=== PATIENT | female | born 1940 | race Caucasian/White ===

== ENCOUNTER 2021-09-01 02:23 | Emergency (ER) | payer MEDICARE, SELFPAY ==
[2021-09-01] VITALS (8 sets, daily range): BP systolic 137–172; BP diastolic 54–74; PULSE 72–116; RESP 13–22; TEMP 36.9–37.3; O2SAT 96–98; BMI 28.5
--- NOTE | 2021-09-01 | ECG_ITS ---
Test Reason : palpitations Blood Pressure : / mmHG Vent. Rate : 103 BPM Atrial Rate : 103 BPM P-R Int : 134 ms QRS Dur : 118 ms QT Int : 346 ms P-R-T Axes : 056 -26 017 degrees QTc Int : 453 ms Sinus tachycardia Possible Left atrial enlargement Right bundle branch block Abnormal ECG No previous ECGs available Referred By: Tab Arredondo Electronically Signed By:ROSHAN FERREIRA MD
[2021-09-01 03:27] LABS: Hemoglobin 11.6 g/dl (12.0-16.0); PLT ABN DIST 1; Red Cell Distribution Width 15.9 % (11.0-16.0)
[2021-09-01 03:29] LABS: Hematocrit 34.6 % (37.0-47.0); Mean Corpuscular HGB Conc 33.5 g/dl (31.0-35.0); Mean Corpuscular Hemoglobin 30.9 pg (27.0-33.0); Mean Platelet Volume 14.3 fL (9.4-12.3); NRBC Pct Auto 0.3 /100WBC (0.0-0.2); PLT CLUMP 1; Red Blood Count 3.76 X10*6/uL (4.20-5.50); WBC ABN SCTR FOR CBC 1
[2021-09-01 03:39] LABS: Alanine Aminotransferase 18 U/L (0-31); Albumin Level 4.3 g/dL (3.5-5.0); Alkaline Phosphatase 47 U/L (39-117); Anion Gap 14 (12-20); Aspartate Amino Transferase 21 U/L (5-31); Bilirubin Total 0.8 mg/dL (0.0-1.0); Blood Urea Nitrogen 19 mg/dL (9-16); Calcium 9.7 mg/dL (8.4-10.2); Carbon Dioxide 24 mmol/L (22-29); Chloride 101 mmol/L (96-108); Estimated Glomerular Filt Rate 58; Glucose Random 150 mg/dL (60-115); Sodium 135 mmol/L (135-145); Total Protein 7.2 g/dL (6.5-8.0)
[2021-09-01 03:46] LABS: Platelet Count 161 X10*3/uL (160-400); Troponin-I High Sensitivity 14.7 ng/L (<3.5-17.0); White Blood Count 6.4 X10*3/uL (4.8-10.8)
--- NOTE | 2021-09-01 07:06 | PC.NURSE ---
strong steady gait to triage. denies palpitations. states sx have improved. strong reg radial pulse palpable. has had a fib but was taken off eloquis after long period w/o a fib. denies CP throughout night.
[2021-09-01 07:48] LABS: Troponin-I High Sensitivity 24.1 ng/L (<3.5-17.0)
--- NOTE | 2021-09-01 07:58 | ED.GENADULT ---
HPI - General Adult General Chief complaint: General Medical Stated complaint: elevated heart rate Time Seen by Provider: 09/01/21 07:58 Source: patient Mode of arrival: ambulatory Limitations: no limitations History of Present Illness HPI narrative: 81 years old female came in for evaluation of palpitation. 81-year-old female just received her 2nd booster Pfizer COVID vaccination yesterday, patient was feeling palpitation with rapid heartbeat, denies any chest pain or dizziness or lightheadedness. No fever, no chills. Related Data Home Medications Medication Instructions Recorded Confirmed diltiazem HCl 180 mg capsule,24 180 mg PO DAILY 03/06/21 hr,extended release hydrochlorothiazide 25 mg tablet 25 mg PO DAILY 03/06/21 Previous Rx's Medication Instructions Recorded doxycycline hyclate 100 mg tablet 100 mg PO BID #20 tab 03/06/21 Allergies Allergy/AdvReac Type Severity Reaction Status Date / Time amoxicillin Allergy Rash Verified 03/06/21 13:33 Review of Systems Review of Systems: All other systems are reviewed and are negative Constitutional: Reports as per HPI and Reports no additional constitutional complaints Eyes: Reports as per HPI and Reports no additional eye complaints Reports system reviewed and no additional complaints, except as documented Cardiovascular: Reports as per HPI and Reports no additional cardiovascular complaints Respiratory: Reports as per HPI and Reports no additional respiratory complaints Gastrointestinal: Reports as per HPI and Reports no additional gastrointestinal complaints Genitourinary: Reports no additional female genitourinary complaints Musculoskeletal: Reports no additional musculoskeletal complaints Skin/Breast: Reports system reviewed and no additional complaints, except as docu Psychiatric: Reports no additional psychiatric complaints Endocrine: Reports no additional endocrine complaints Hematologic/Lymphatic: Reports no additional hematologic/lymphatic complaints Allergic/Immunologic: Reports no additional allergic/immunologic complaints Reports system reviewed and no additional complaints, except as documented and Reports Abnormal speech present [facility] Social History Social History Alcohol intake: current Alcohol intake frequency: holidays/special occasions only Patient Tobacco Use Status: Never used Tobacco Use of substances other than those prescribed or required for medical reasons: No Advance Directives: No Advance Directives Information Provided: Yes Physical Exam ED Vital Signs: Vital Signs - 24 hr 09/01/21 02:43 09/01/21 04:09 09/01/21 07:05 Temperature 98.5 F Pulse Rate 116 H 82 89 Respiratory Rate 18 16 18 Blood Pressure 172/74 H 148/61 H 151/65 H Pulse Oximetry 98 97 97 09/01/21 07:30 09/01/21 08:24 09/01/21 09:08 Temperature 99 F 99.1 F Pulse Rate 93 80 76 Respiratory Rate 20 18 22 H Blood Pressure 150/69 H 144/54 H 140/74 H Pulse Oximetry 97 97 96 09/01/21 10:35 Temperature 99.0 F Pulse Rate 78 Respiratory Rate 19 Blood Pressure 144/56 H Pulse Oximetry 98 BMI result Body Mass Index 28.5 Vital signs have been reviewed as appeared to be correct. Blood pressure normal. Heart rate normal. Respiration rate normal. Temperature normal. Oxygen saturation normal. Appearance: Alert. Oriented X3. No acute distress. Head: Normal external exam. Normocephalic. Atraumatic. No Barrera signs noted. No raccoon eyes noted Eyes: PERRLA. EOMI. Conjunctiva and sclera normal. Eyelids normal. ENT: TM's Normal. Pharynx normal. Uvula midline. Moist mucous membranes. No trismus noted. No drooling noted. No muffled voice noted. Neck: Normal inspection. Neck supple. FROM. No adenopathy. Thyroid Normal. No meningeal signs. No neck mass noted. CVS: Normal heart rate and rhythm. Heart sound normal. No murmurs noted. Pulses normal throughout. Respiratory: No respiratory distress. Painless inspiration. Breath sounds normal. No wheezes/rales/rhonchi noted. Chest nontender. No accessory muscle usage noted or decreased air movement noted. Abdomen: Soft and nontender. Bowel sounds normal in all 4 quadrants. No distention noted. No organomegaly noted. No visible injury noted. Back: No CVA tenderness. Full range of motion noted. Skin: Skin warm and dry. Normal skin color. Normal skin turgor. No rashes/lesions/lacerations noted. Extremities: No lower extremity edema. Extremities exhibit normal range of motion. Extremities nontender. Neuro: Oriented X 3. Cranial nerve exam: II-XII are grossly intact No motor deficit. No sensory deficit. Reflexes normal. Course Course Course Narrative: Assessment and plan. 81-year-old female came in for evaluation of palpitation after having the 2nd booster COVID vaccination, EKG is sinus at 84, labs and electrolytes are unremarkable, slight elevation of troponin with no delta change, patient now is asymptomatic heart rate been in the 80s, will discharge to follow-up with PCP. Medical Decision Making Lab Data Lab results reviewed: Yes I reviewed the patient's lab results. Result diagrams: 09/01/21 02:40 09/01/21 02:40 Labs: Lab Results 09/01/21 09/01/21 09/01/21 Range/Units 02:40 02:40 02:40 WBC 6.4 (4.8-10.8) X10*3/uL RBC 3.76 L (4.20-5.50) X10*6/uL Hgb 11.6 L (12.0-16.0) g/dl Hct 34.6 L (37.0-47.0) % MCV 92.0 (80.0-98.0) fL MCH 30.9 (27.0-33.0) pg MCHC 33.5 (31.0-35.0) g/dl RDW 15.9 (11.0-16.0) % Plt Count 161 (160-400) X10*3/uL MPV 14.3 H (9.4-12.3) fL Absolute Nucleated RBC 0.020 H (0.0-0.012) X10*3/uL Nucleated RBC % (auto) 0.3 H (0.0-0.2) /100WBC Sodium 135 (135-145) mmol/L Potassium 4.0 (3.3-5.1) mmol/L Chloride 101 (96-108) mmol/L Carbon Dioxide 24 (22-29) mmol/L Anion Gap 14 (12-20) BUN 19 H (9-16) mg/dL Creatinine 0.92 (0.5-1.4) mg/dL Estim Creat Clear Calc 40.0 Estimated GFR 58 Random Glucose 150 H (60-115) mg/dL Calcium 9.7 (8.4-10.2) mg/dL Total Bilirubin 0.8 (0.0-1.0) mg/dL AST 21 (5-31) U/L ALT 18 (0-31) U/L Alkaline Phosphatase 47 (39-117) U/L Troponin I High Sens 14.7 (<3.5-17.0) ng/L Total Protein 7.2 (6.5-8.0) g/dL Albumin 4.3 (3.5-5.0) g/dL 09/01/21 09/01/21 Range/Units 07:19 09:56 WBC (4.8-10.8) X10*3/uL RBC (4.20-5.50) X10*6/uL Hgb (12.0-16.0) g/dl Hct (37.0-47.0) % MCV (80.0-98.0) fL MCH (27.0-33.0) pg MCHC (31.0-35.0) g/dl RDW (11.0-16.0) % Plt Count (160-400) X10*3/uL MPV (9.4-12.3) fL Absolute Nucleated RBC (0.0-0.012) X10*3/uL Nucleated RBC % (auto) (0.0-0.2) /100WBC Sodium (135-145) mmol/L Potassium (3.3-5.1) mmol/L Chloride (96-108) mmol/L Carbon Dioxide (22-29) mmol/L Anion Gap (12-20) BUN (9-16) mg/dL Creatinine (0.5-1.4) mg/dL Estim Creat Clear Calc Estimated GFR Random Glucose (60-115) mg/dL Calcium (8.4-10.2) mg/dL Total Bilirubin (0.0-1.0) mg/dL AST (5-31) U/L ALT (0-31) U/L Alkaline Phosphatase (39-117) U/L Troponin I High Sens 24.1 H D 23.4 H (<3.5-17.0) ng/L Total Protein (6.5-8.0) g/dL Albumin (3.5-5.0) g/dL ECG Data Attestation: I personally reviewed and interpreted this ECG as follows: Interpretation: Normal sinus rhythm at 84 beats per minutes, right bundle branch block. Discharge Plan Discharge Clinical Impression: Palpitation Patient Disposition: Home, Self-Care Instructions: Heart Palpitations (ED) Prescriptions: No Action doxycycline hyclate 100 mg tablet 100 mg PO BID Qty: 20 0RF Referrals: Carleen Samson MD [Primary Care Provider] - 2 days
[2021-09-01 10:23] LABS: Troponin-I High Sensitivity 23.4 ng/L (<3.5-17.0)
== END 2021-09-01 11:39 | disposition home or self-care (01) ==
PROVIDERS: Emergency Provider Emergency Medicine; PCP Internal Medicine
DX: R00.2 Palpitations (principal)
CPT/HCPCS: 36415; 80053; 84484; 85027; 93005; 99283; 99284

== ENCOUNTER 2021-11-19 12:41 | Outpatient (REF) | payer MEDICARE, SELFPAY ==
--- NOTE | ~2021-11-19 | MM_ITS ---
EXAMINATION: BONE DENSITOMETRY CLINICAL INDICATION: Menopause. COMPARISON: This is the patient's baseline examination. TECHNIQUE: Using a [employer] DXA System (software version: 13.1) manufactured by [employer], dual-energy x-ray absorptiometry was performed of the lumbar spine and left hip. The images are of good technical quality. Summary results are attached. FINDINGS: AP SPINE L1-L2 (excluding L3 and L4): The data of L1-L4 has been changed to exclude the L3 and L4 vertebral bodies, because degenerative sclerosis at these levels may cause overestimation of lumbar spine density. BMD 1.260 g/cm2, Z-score 2.7, T-score 0.8, normal. LEFT FEMUR, NECK: BMD 0.768 g/cm2, Z-score 0.3, T-score -1.9, osteopenia. LEFT FEMUR, TOTAL: BMD 0.888 g/cm2, Z-score 1.2, T-score -0.9, normal. IDENTIFIED RISK FACTORS: Thiazide. Menopause. HISTORY OF FRACTURE: None listed. MEDICATIONS: Calcium supplement and/or multivitamin. Vitamin D. MM/XR DEXA axial skeleton IMPRESSION: 1. DIAGNOSIS: Osteopenia based on the lowest T-score value of -1.9 in the femoral neck applying World Health Organization criteria. 2. 10-YEAR FRACTURE RISK PREDICTION, FRAX: Major osteoporotic fracture (clinical spine, forearm, hip or shoulder) 15.6%. Hip fracture 4.7%. 3. Treatment Recommendations: NOF guidelines recommend consideration for treatment in postmenopausal women and men age 50 and older presenting with the following: -A hip or vertebral (clinical or morphometric) fracture. -T-score less than or equal to -2.5 at the femoral neck or spine after appropriate evaluation to exclude secondary causes. -Low bone mass at the hip or spine and a 10-year fracture probability by FRAX of greater than or equal to 3% for hip fracture or greater than or equal to 20% for major osteoporotic fracture based on the [place] adapted WHO algorithm. 4. Other Recommendations: All treatment decisions require clinical judgment and consideration of individual patient factors, including patient preferences, comorbidities, previous drug use, risk factors not captured in the FRAX model (e.g. frailty, falls, vitamin D deficiency, increased bone turnover, interval significant decline in bone density) and possible under or overestimation of fracture risk by FRAX. Additional medical evaluation for secondary cause of low bone mineral density may be appropriate. FUTURE SCAN RECOMMENDATION: People with diagnosed cases of osteoporosis or at high risk for fracture should have regular bone mineral density tests. For patients eligible for Medicare, routine testing is allowed once every 2 years. The testing frequency can be increased to one year for patients who have rapidly progressing disease, those who are receiving or discontinuing medical therapy to restore bone mass, or have additional risk factors.
== END 2021-11-19 12:42 | disposition home or self-care (01) ==
LOC: HO.MAMMO 12:41
PROVIDERS: Visit Provider Internal Medicine
DX: Z13.820 Encounter for screening for osteoporosis (principal); M81.0 Age-related osteoporosis without current pathological fracture; Z78.0 Asymptomatic menopausal state
CPT/HCPCS: 77080

== ENCOUNTER 2022-01-30 11:46 | Emergency (ER) | payer MEDICARE, SELFPAY ==
--- NOTE | ~2022-01-30 | CT_ITS ---
EXAMINATION: CT ABDOMEN AND PELVIS WITH CONTRAST CLINICAL INFORMATION: Abdominal pain and bloating COMPARISON: Abdominal ultrasound from earlier the same day TECHNIQUE: Multidetector volumetric images were obtained from the superior aspect of the liver through the pubic symphysis following administration 85 mL of Omnipaque 350 intravenous contrast. Sagittal and coronal reformatted images were obtained on the technologist's workstation. Oral contrast: Yes This CT examination was performed using dose optimization techniques as appropriate, variously including the following: *Automated exposure control *Adjustment of mA and/or kV according to patient size (this includes techniques or standardized protocols for targeted exams where dose is matched to indication/reason for exam; i.e. extremities or head) *Use of iterative reconstruction technique DLP: 414 mGy-cm FINDINGS: LUNG BASES: The visualized lung bases are unremarkable. LIVER, GALLBLADDER, AND BILIARY TREE: The liver is normal in size, shape, and attenuation. There is a small low-attenuation lesion in the left lobe of the liver measuring 4 mm that is difficult to characterize but may represent a small cyst.. No other focal liver lesion. No biliary duct dilatation. The gallbladder is unremarkable with no evidence of radiopaque gallstones, gallbladder wall thickening, or obvious pericholecystic inflammatory changes. PANCREAS: There is fatty infiltration of the pancreas. SPLEEN: Unremarkable. ADRENAL GLANDS: Unremarkable. KIDNEYS AND URETERS: The kidneys are normal in size, shape, and attenuation. No hydronephrosis, hydroureter, or calculi seen. No perinephric stranding. BLADDER: Unremarkable. GASTROINTESTINAL TRACT: There is diverticulosis of the colon. No evidence of diverticulitis is seen. Small and large bowel is otherwise unremarkable. The appendix is not seen. There are no inflammatory changes in the right lower quadrant. The stomach is not optimally distended. ABDOMINAL WALL: No significant hernia is appreciated. LYMPH NODES: Normal. VASCULAR: Unremarkable. PELVIC VISCERA: There is low-attenuation in the central uterus questionable for endometrial fluid or thickening. This measures 6 mm which is prominent for a postmenopausal patient. OSSEOUS STRUCTURES: There are degenerative changes of the spine. CT/CT abdomen pelvis w IV con IMPRESSION: Diverticulosis of the colon. No evidence of diverticulitis, colitis or obstruction. Probable tiny cyst in the liver. Fatty infiltration of the pancreas. Fleischner guidelines were followed.
--- NOTE | ~2022-01-30 | US_ITS ---
EXAMINATION: US ABDOMEN LIMITED CLINICAL INFORMATION: Right upper quadrant and epigastric pain. COMPARISON: None TECHNIQUE: Real-time imaging of the right upper quadrant abdominal viscera. FINDINGS: PANCREAS: Not well visualized. LIVER: Normal. The liver is normal in size. The liver contour is normal. Parenchymal echogenicity is normal. No focal hepatic lesion. There is no intrahepatic biliary duct dilatation seen. GALLBLADDER: The gallbladder is normal in size. There is ring down artifact suggestive of adenomyomatosis of the gallbladder wall. No gallstones are seen. The gallbladder wall does not appear thickened. There is no pericholecystic fluid. COMMON BILE DUCT: Normal in caliber measuring 0.5 cm in diameter. RIGHT KIDNEY: Normal. No hydronephrosis. No renal calculi or focal parenchymal lesions. The kidney measures 8.4 cm in maximum dimension. FREE FLUID: None. 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 No gallstone seen. Nonvisualization of the pancreas.
[2022-01-30 11:54] VITALS: BP 168/67; PULSE 68; RESP 18; TEMP 35.8; O2SAT 98; BMI 27.5
--- NOTE | 2022-01-30 11:57 | ECG_ITS ---
Test Reason : ABDOMINAL PAIN Blood Pressure : / mmHG Vent. Rate : 066 BPM Atrial Rate : 066 BPM P-R Int : 134 ms QRS Dur : 124 ms QT Int : 416 ms P-R-T Axes : 043 -35 000 degrees QTc Int : 436 ms Normal sinus rhythm Possible Left atrial enlargement Left axis deviation Right bundle branch block Abnormal ECG When compared with ECG of 01-SEP-2021 08:12, No significant change was found Referred By: Generic ED Physician Electronically Signed By:JESSICA CISSE
[2022-01-30 12:14] LABS: Hematocrit 33.9 % (37.0-47.0); Hemoglobin 11.6 g/dl (12.0-16.0); Mean Corpuscular HGB Conc 34.2 g/dl (31.0-35.0); Mean Corpuscular Hemoglobin 30.9 pg (27.0-33.0); Mean Corpuscular Volume 90.2 fL (80.0-98.0); Mean Platelet Volume 13.8 fL (9.4-12.3); NRBC Pct Auto 0.4 /100WBC (0.0-0.2); Platelet Count 148 X10*3/uL (160-400); Red Blood Count 3.76 X10*6/uL (4.20-5.50); Red Cell Distribution Width 15.6 % (11.0-16.0); WBC ABN SCTR FOR CBC 1
[2022-01-30 12:28] LABS: Troponin-I High Sensitivity 11.3 ng/L (<3.5-17.0)
[2022-01-30 12:31] LABS: Alanine Aminotransferase 19 U/L (0-31); Albumin Level 4.3 g/dL (3.5-5.0); Alkaline Phosphatase 49 U/L (39-117); Anion Gap 14 (12-20); Aspartate Amino Transferase 21 U/L (5-31); Bilirubin Direct 0.3 mg/dL (0.0-0.5); Bilirubin Total 0.8 mg/dL (0.0-1.0); Blood Urea Nitrogen 15 mg/dL (9-16); Calcium 9.4 mg/dL (8.4-10.2); Carbon Dioxide 27 mmol/L (22-29); Chloride 97 mmol/L (96-108); Creatinine Clr Calc Pharmacy 42.6; Estimated Glomerular Filt Rate > 60; Glucose Random 124 mg/dL (60-115); Lipase 21 U/L (8-78); Sodium 134 mmol/L (135-145); Total Protein 7.1 g/dL (6.5-8.0)
[2022-01-30 12:32] LABS: Atypical Lymphs Percent Manual 2 % (0-6); Band Neutrophils Percent 1 % (3-5); Lymphocytes Percent Manual 40 % (20-40); Monocytes Percent Manual 7 % (2-11); Neutrophils Percent Manual 50 % (45-73)
[2022-01-30 12:35] LABS: Large Platelet PRESENT; Macrocytosis 1+ (5-14) /OIF; Microcytosis 1+ (5-14) /OIF; Platelet Estimate NORMAL (NORMAL); Platelet Morphology Comment NOTED; Polychromasia 1+ (0-2) /OIF; RBC Morphology NOTED; Schistocytes 1+ (0-2) /OIF
[2022-01-30 12:37] LABS: Atypical Lymph Absolute Manual 0.1 x10*3/uL; Lymphocytes Absolute Manual 1.8 X10*3/uL (1.2-4.9); Monocytes Absolute Manual 0.3 X10*3/uL (0.1-1.2); Neutrophils Absolute Manual 2.3 X10*3/uL (2.0-8.3); White Blood Count 4.6 X10*3/uL (4.8-10.8)
--- NOTE | 2022-01-30 13:31 | ED_ITS ---
HPI - Abdominal Pain General Chief Complaint: Abdominal Pain Stated Complaint: Upper Stomach Pain Time Seen by Provider: 01/30/22 13:29 Source: patient Mode of arrival: ambulatory Limitations: no limitations History of Present Illness HPI narrative: 81 yo female with hx of HTN no prior abdominal surgeries presents with 1 week of intermittent abdominal bloating. Feels like she has to belch. Her pain wraps around her abdomen into the back. Last night the gas felt like it was going up onto the sides of her chest. MD elicited complaint: abdominal pain Pertinent past history: none Onset (ago): week(s) (1) Pain Consistency: intermittent Location: epigastric Severity: moderate Quality: fullness Radiation: back and chest Migration to: no migration Exacerbating factors: eating Relieving factors: nothing Associated symptoms: other (increased gas) Related Data Home Medications Medication Instructions Recorded Confirmed diltiazem HCl 180 mg capsule,24 180 mg PO DAILY 03/06/21 hr,extended release hydrochlorothiazide 25 mg tablet 25 mg PO DAILY 03/06/21 Previous Rx's Medication Instructions Recorded doxycycline hyclate 100 mg tablet 100 mg PO BID #20 tabs 03/06/21 Allergies Allergy/AdvReac Type Severity Reaction Status Date / Time amoxicillin Allergy Rash Verified 03/06/21 13:33 Review of Systems Review of Systems Constitutional : No Weight loss, No Fever, No Chills ENT/Mouth : No sore throat, No Rhinorrhea Eyes: No Swelling, No Redness Cardiovascular : No Chest Pain, No SOB, NoEdema Respiratory : No Cough, No Sputum, No Wheezing Gastrointestinal : no Nausea, no Vomiting, no Diarrhea, positive abdominal Pain, No Hematochezia, No Melena Genitourinary : No Dysuria, No Urinary Frequency, No Hematuria, No Urgency Musculoskeletal : No joint pain, No Myalgias, No Joint Swelling Skin : No Skin Lesions, No rash Neuro : No Weakness, No Numbness, No Dizziness, No Headache Psych : No Anxiety/Panic, No Depression Heme/Lymph: No Bruising, No Lymphadenopathy Endocrine : No Polyuria, No Polydipsia All other systems reviewed and are negative. [facility] Past Medical History Attestation statement: The following information was validated with the patient. Medical History HTN (hypertension) Social History Social History (Reviewed 09/03/22 @ 13:50 by ESCOBAR Razo Alcohol intake: current Alcohol intake frequency: 0-2 drinks per day Alcohol type: beer, wine and hard liquor Patient Tobacco Use Status: Never used Tobacco Use of substances other than those prescribed or required for medical reasons: No Advance Directives: Yes Advance Directives Information Provided: Yes Advance Directives on File: No Physical Exam ED Vital Signs: Vital Signs - 24 hr 01/30/22 11:54 01/30/22 14:53 Temperature 96.4 F L 98 F Pulse Rate 68 67 Respiratory Rate 18 18 Blood Pressure 168/67 H 151/62 H Pulse Oximetry 98 98 Oxygen Delivery Method Room Air Room Air BMI result Body Mass Index 27.5 Appearance: Alert. Oriented X3. No acute distress. Eyes: Pupils equal, round and reactive to light. ENT: Pharynx normal. Neck: Normal inspection. Neck supple. CVS: Normal heart rate and rhythm. Pulses normal. Respiratory: No respiratory distress. Breath sounds normal. Abdomen: Soft and mild RUQ pain neg melendez's Skin: Skin warm and dry. Normal skin color. Normal skin turgor. Extremities: No lower extremity edema. No calf ttp Neuro: Oriented X 3. No motor deficit. No sensory deficit. Course Course Course Narrative: negative US, given symptoms recent cologuard test due for colonoscopy 03/04 at this time will obtain CT scan for mass signed out to Sarah LORA pending CT scan MDM - Abdominal Pain MDM Narrative Medical decision making narrative: 81 yo female with hx of HTN here with 1 week of intermittent upper abdominal pain with associated gas and bloating - at this time will need basic labs, EKG, troponin though seems atypical for ACS, US to evaluate GB. If this is negative will obtain CT scan for further evaluation. Dispo per results and findings. Lab Data Result diagrams: 01/30/22 12:00 01/30/22 12:00 Labs: Lab Results 01/30/22 01/30/22 01/30/22 Range/Units 12:00 12:00 12:00 WBC 4.6 L (4.8-10.8) X10*3/uL RBC 3.76 L (4.20-5.50) X10*6/uL Hgb 11.6 L (12.0-16.0) g/dl Hct 33.9 L (37.0-47.0) % MCV 90.2 (80.0-98.0) fL MCH 30.9 (27.0-33.0) pg MCHC 34.2 (31.0-35.0) g/dl RDW 15.6 (11.0-16.0) % Plt Count 148 L (160-400) X10*3/uL MPV 13.8 H (9.4-12.3) fL Immature Gran % (Auto) Cancelled Neut % (Auto) Cancelled Lymph % (Auto) Cancelled Mason % (Auto) Cancelled Eos % (Auto) Cancelled Baso % (Auto) Cancelled Lymph # (Auto) Cancelled Mason # (Auto) Cancelled Eos # (Auto) Cancelled Baso # (Auto) Cancelled Abs Immat Gran (auto) Cancelled Absolute Neuts (auto) Cancelled Absolute Nucleated RBC 0.020 H (0.0-0.012) X10*3/uL Nucleated RBC % (auto) 0.4 H (0.0-0.2) /100WBC Neutrophils % (Manual) 50 (45-73) % Band Neutrophils % 1 L (3-5) % Lymphocytes % (Manual) 40 (20-40) % Atypical Lymphs % (Man) 2 (0-6) % Monocytes % (Manual) 7 (2-11) % Abs Neuts (Manual) 2.3 (2.0-8.3) X10*3/uL Lymphocytes # (Manual) 1.8 (1.2-4.9) X10*3/uL Atyp Lymphs # (Manual) 0.1 x10*3/uL Monocytes # (Manual) 0.3 (0.1-1.2) X10*3/uL Platelet Estimate NORMAL (NORMAL) Large Platelets PRESENT Plt Morphology Comment NOTED RBC Morphology NOTED Polychromasia 1+ (0-2) /OIF Microcytosis 1+ (5-14) /OIF Macrocytosis 1+ (5-14) /OIF Schistocytes 1+ (0-2) /OIF Sodium 134 L (135-145) mmol/L Potassium 4.0 (3.3-5.1) mmol/L Chloride 97 (96-108) mmol/L Carbon Dioxide 27 (22-29) mmol/L Anion Gap 14 (12-20) BUN 15 (9-16) mg/dL Creatinine 0.85 (0.5-1.4) mg/dL Estim Creat Clear Calc 42.6 Estimated GFR > 60 Random Glucose 124 H (60-115) mg/dL Calcium 9.4 (8.4-10.2) mg/dL Total Bilirubin 0.8 (0.0-1.0) mg/dL Direct Bilirubin 0.3 (0.0-0.5) mg/dL AST 21 (5-31) U/L ALT 19 (0-31) U/L Alkaline Phosphatase 49 (39-117) U/L Troponin I High Sens 11.3 D (<3.5-17.0) ng/L Total Protein 7.1 (6.5-8.0) g/dL Albumin 4.3 (3.5-5.0) g/dL Lipase 21 (8-78) U/L COVID-19 (ISAAC) (Negative) COVID-19 Clin Com 01/30/22 Range/Units 14:49 WBC (4.8-10.8) X10*3/uL RBC (4.20-5.50) X10*6/uL Hgb (12.0-16.0) g/dl Hct (37.0-47.0) % MCV (80.0-98.0) fL MCH (27.0-33.0) pg MCHC (31.0-35.0) g/dl RDW (11.0-16.0) % Plt Count (160-400) X10*3/uL MPV (9.4-12.3) fL Immature Gran % (Auto) Neut % (Auto) Lymph % (Auto) Mason % (Auto) Eos % (Auto) Baso % (Auto) Lymph # (Auto) Mason # (Auto) Eos # (Auto) Baso # (Auto) Abs Immat Gran (auto) Absolute Neuts (auto) Absolute Nucleated RBC (0.0-0.012) X10*3/uL Nucleated RBC % (auto) (0.0-0.2) /100WBC Neutrophils % (Manual) (45-73) % Band Neutrophils % (3-5) % Lymphocytes % (Manual) (20-40) % Atypical Lymphs % (Man) (0-6) % Monocytes % (Manual) (2-11) % Abs Neuts (Manual) (2.0-8.3) X10*3/uL Lymphocytes # (Manual) (1.2-4.9) X10*3/uL Atyp Lymphs # (Manual) x10*3/uL Monocytes # (Manual) (0.1-1.2) X10*3/uL Platelet Estimate (NORMAL) Large Platelets Plt Morphology Comment RBC Morphology Polychromasia /OIF Microcytosis /OIF Macrocytosis /OIF Schistocytes /OIF Sodium (135-145) mmol/L Potassium (3.3-5.1) mmol/L Chloride (96-108) mmol/L Carbon Dioxide (22-29) mmol/L Anion Gap (12-20) BUN (9-16) mg/dL Creatinine (0.5-1.4) mg/dL Estim Creat Clear Calc Estimated GFR Random Glucose (60-115) mg/dL Calcium (8.4-10.2) mg/dL Total Bilirubin (0.0-1.0) mg/dL Direct Bilirubin (0.0-0.5) mg/dL AST (5-31) U/L ALT (0-31) U/L Alkaline Phosphatase (39-117) U/L Troponin I High Sens (<3.5-17.0) ng/L Total Protein (6.5-8.0) g/dL Albumin (3.5-5.0) g/dL Lipase (8-78) U/L COVID-19 (ISAAC) Negative (Negative) COVID-19 Clin Com See Note ECG Data Attestation: I personally reviewed and interpreted this ECG as follows: ECG interpretation date: 01/30/22 ECG interpretation time: 13:36 Interpretation: Rate: 66 Rhythm: NSR [place]: left Normal P waves. Normal DYANA. RBBB ST T wave : nonspecific no ED qTC: normal prior studies: unchanged frmo priors The study has been interpreted contemporaneously by me. . Discharge Plan Discharge Clinical Impression: Abdominal pain Patient Disposition: Still a Patient Prescriptions: No Action doxycycline hyclate 100 mg tablet 100 mg PO BID Qty: 20 0RF
[2022-01-30 14:53] VITALS: BP 151/62; PULSE 67; RESP 18; TEMP 36.6; O2SAT 98
[2022-01-30 15:07] LABS: COVID-19 Test Negative (Negative)
[2022-01-30] MEDS: iohexoL 350 MG/ML 100 ML INFUS..BTL IV (16:09)
[2022-01-30 19:34] LABS: Troponin-I High Sensitivity 12.4 ng/L (<3.5-17.0)
[2022-01-30 20:37] VITALS: BP 157/70; PULSE 65; RESP 13; TEMP 36.6; O2SAT 97
== END 2022-01-30 20:45 | disposition home or self-care (01) ==
PROVIDERS: Physician Assistant; Emergency Provider Emergency Medicine; PCP Internal Medicine
DX: R10.9 Unspecified abdominal pain (principal); I10 Essential (primary) hypertension; Z20.822 Contact with and (suspected) exposure to COVID-19
CPT/HCPCS: 36415; 74177; 76705; 80048; 80076; 83690; 84484; 85007; 85027; 87635; 93005; 99284; Q9967

== ENCOUNTER 2022-09-08 08:26 | Outpatient (REF) | payer MEDICARE, SELFPAY ==
--- NOTE | ~2022-09-08 | MM_ITS ---
EXAMINATION: MM SCREENING DIGITAL BREAST TOMOSYNTHESIS, BILATERAL CLINICAL INFORMATION: Screening. Asymptomatic. The lifetime risk of breast cancer based on the Tyrer-Cuzick Model is 1%. COMPARISON: Outside mammography: 08/28/2021, 08/26/2020, 05/10/2019 ([facility]) TECHNIQUE: Digital breast tomosynthesis is performed in both the craniocaudal and mediolateral oblique views along with computer-aided detection (CAD). Synthesized 2D images are generated from the tomosynthesis. FINDINGS: There are scattered areas of fibroglandular density (ACR BI-RADS breast composition Category b). There are no significant masses, abnormal calcifications, or other abnormalities. Parenchymal pattern is similar to prior outside studies. No developing density or architectural abnormality. Again, there is biopsy clip marker posterior central lower right breast. Dermal lesion again seen overlying posterior upper outer right breast. The axilla are unremarkable. No significant changes. MM/MM tomosynthesis screening BI IMPRESSION: No mammographic evidence of malignancy. ASSESSMENT: BI-RADS 2: Benign RECOMMENDATION: Routine annual mammography screening. This patient's information was entered into a reminder system with a target due date for their next mammogram.
== END 2022-09-08 08:27 | disposition home or self-care (01) ==
LOC: HO.MAMMO 08:26
PROVIDERS: Visit Provider Internal Medicine
DX: Z12.31 Encounter for screening mammogram for malignant neoplasm of breast (principal)
CPT/HCPCS: 77063; 77067

== ENCOUNTER 2022-11-15 04:37 | Inpatient (IN) | payer MEDICARE, SELFPAY ==
[2022-11-15] VITALS (8 sets, daily range): BP systolic 134–166; BP diastolic 52–70; PULSE 72–92; RESP 12–19; TEMP 37–37.9; O2SAT 94–99; BMI 27.7; BMI 26.3
--- NOTE | ~2022-11-15 | CT_ITS ---
EXAMINATION: CT ABDOMEN AND PELVIS WITH CONTRAST CLINICAL INFORMATION: Pain with leukocytosis, evaluate for appendicitis COMPARISON: Previous dated 06/17/2022 TECHNIQUE: Multidetector volumetric images were obtained from the superior aspect of the liver through the pubic symphysis following administration 85 mL of Omnipaque 350 intravenous contrast. Sagittal and coronal reformatted images were obtained on the technologist's workstation. Oral contrast: No This CT examination was performed using dose optimization techniques as appropriate, variously including the following: *Automated exposure control *Adjustment of mA and/or kV according to patient size (this includes techniques or standardized protocols for targeted exams where dose is matched to indication/reason for exam; i.e. extremities or head) *Use of iterative reconstruction technique DLP: 169 mGy-cm FINDINGS: LUNG BASES: Bilateral small effusions with adjacent atelectasis LIVER, GALLBLADDER, AND BILIARY TREE: The liver is normal in size, shape, and attenuation. No focal hepatic lesion or biliary ductal dilatation is present. Some density within the gallbladder could represent gallstones or echogenic bile PANCREAS: Atrophic pancreas SPLEEN: Unremarkable. ADRENAL GLANDS: Unremarkable. KIDNEYS AND URETERS: The kidneys are normal in size, shape, and attenuation. No hydronephrosis, hydroureter, or calculi seen. No perinephric stranding. BLADDER: The bladder is decompressed GASTROINTESTINAL TRACT: This is abnormal. There is a long length of abnormal appearing small bowel distal small bowel to the level of the terminal ileum. Measuring up to 2.8 cm but thick-walled and there is some mesenteric stranding. ABDOMINAL WALL: No significant hernia is appreciated. LYMPH NODES: Some shotty nodes similar to previous VASCULAR: I cannot exclude filling defect within some mesenteric arteries which may be serving the small bowel which is abnormal described above. This is not a CTA exam therefore evaluation is limited. PELVIC VISCERA: Unremarkable. OSSEOUS STRUCTURES: Unremarkable. CT/CT abdomen pelvis w IV con IMPRESSION: This exam is abnormal. There is abnormal fairly long length of mid to distal small bowel with some possible mesenteric engorgement and some minimal mesenteric fluid. Also as described I cannot exclude and we must consider some filling defects within the arterial vasculature that serves this area. Therefore ischemia would need to be considered. Again this is not a dedicated CTA. I would recommend CTA to further evaluate. Otherwise differential may include enteritis versus other. This critical result was discussed with A Genevieve the PA 1:55 PM on 11/17/2022 and it was ascertained that the content and urgency of the report was understood at the time of direct communication. Fleischner guidelines were followed.
--- NOTE | ~2022-11-15 | XR_ITS ---
EXAMINATION: XR CHEST CLINICAL INFORMATION: Band the knee, unclear etiology COMPARISON: None available. TECHNIQUE: Frontal view of the chest was obtained. FINDINGS: Wires overlie the chest. Cardiac mediastinal silhouette is normal. The lungs are clear without consolidation, pleural effusion or pneumothorax. XR/XR chest 1V IMPRESSION: No acute cardiopulmonary process.
--- NOTE | ~2022-11-15 | XR_ITS ---
EXAMINATION: XR ABDOMEN KUB CLINICAL INDICATION: Nausea and vomiting COMPARISON: None available. TECHNIQUE: AP view of the abdomen. FINDINGS: The bowel gas pattern is normal with no evidence of ileus or obstruction. No unusual soft tissue calcifications are noted. The bones are unremarkable. XR/XR KUB IMPRESSION: Unremarkable examination.
--- NOTE | ~2022-11-15 | CT_ITS ---
EXAMINATION: CT ABDOMEN, AND PELVIS WITH CONTRAST CLINICAL INFORMATION: Abdominal pain and melena COMPARISON: None TECHNIQUE: Multidetector volumetric CT imaging of the abdomen, and pelvis was obtained before and following administration of 80 mL of Omnipaque 350 intravenous contrast without immediate adverse reactions. Axial MIP volume rendering provided. Sagittal and coronal reformatted images were obtained. This CT examination was performed using dose optimization techniques as appropriate, variously including the following: *Automated exposure control *Adjustment of mA and/or kV according to patient size (this includes techniques or standardized protocols for targeted exams where dose is matched to indication/reason for exam; i.e. extremities or head) *Use of iterative reconstruction technique DLP: 1041 mGy-cm FINDINGS: LUNG BASES: The lung bases appear clear, with no evidence of inflammation or nodules. LIVER, GALLBLADDER, AND BILIARY TREE: The liver appears unremarkable in size, shape, and attenuation. No focal hepatic lesion or biliary ductal dilatation is appreciated. Unremarkable appearance of the gallbladder. PANCREAS: Unremarkable SPLEEN: Unremarkable ADRENAL GLANDS: Unremarkable KIDNEYS AND URETERS: The kidneys appear unremarkable in size, shape, and attenuation. No hydronephrosis, hydroureter, or calculi seen. BLADDER: Unremarkable GASTROINTESTINAL TRACT: With mildly thickened wall of not dilated ilium without evidence of intravenous contrast extravasation, findings are most likely due to enteritis. No evidence of bowel obstruction or mass. There are scattered colonic diverticuli without evidence of diverticulitis or bowel obstruction. Appendix is not clearly identified but there are no secondary signs of appendicitis. ABDOMINAL WALL: No significant hernia is appreciated. LYMPH NODES: There are small scattered mesenteric lymph nodes of nonpathological size VASCULAR: Unremarkable PELVIC VISCERA: Unremarkable OSSEOUS STRUCTURES: There are multilevel degenerative changes without lytic or blastic lesions CT/CT gi bleed abd pel wo/w IVcon IMPRESSION: No evidence of bowel obstruction. No evidence of GI bleed. Mildly thickened wall of ileum most likely due to enteritis. Diverticulosis without diverticulitis.
--- NOTE | ~2022-11-15 | CT_ITS ---
EXAMINATION: CT ANGIOGRAM ABDOMEN AND PELVIS CLINICAL INFORMATION: Rule out bowel ischemia. COMPARISON: CT scan earlier today and abdominal ultrasound 11/16/2022, GI bleed study 11/15/[address] of the abdomen and pelvis 01/30/2022. TECHNIQUE: Multiple axial images were obtained through the abdomen and pelvis following the administration of 85 mL of Omnipaque 350 intravenous contrast. Images were reviewed on a dedicated 3-D workstation. This CT examination was performed using dose optimization techniques as appropriate, variously including the following: *Automated exposure control *Adjustment of mA and/or kV according to patient size (this includes techniques or standardized protocols for targeted exams where dose is matched to indication/reason for exam; i.e. extremities or head) *Use of iterative reconstruction technique DLP: 235.00 mGy-cm VASCULAR FINDINGS: Atherosclerotic changes are present in the abdominal aorta. Just below the level of the celiac, there is a filling defect seen in the aorta that measures 1.1 x 0.4 cm and is adherent on the left wall of the aorta at about 3:00. This was present on the study from this morning as well as a study from 11/15/2022, but not on the CT scan from 01/30/2022. 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 The distal celiac branches are patent. The SMA origin is patent but approximately 6 cm beyond the origin there is an embolus present occluding branches which fill poorly distally in the right lower quadrant. Appearances are the same as this morning and in fact the same as on the 11/15/2022 CT scan. The emboli were not present on the 01/30/2022 study. The MEHREEN is patent. There are 2 renal arteries present on the right with a single left-sided renal artery which are all patent without evidence of emboli. The common iliac arteries are widely patent. The iliac bifurcations are patent. The internal iliac arteries are patent. The external iliac arteries are free of disease. Common femoral arteries are widely patent as are proximal profunda femoris and superficial femoral arteries. NONVASCULAR FINDINGS: LUNG BASES: Bilateral small effusions are present along with basilar atelectasis. LIVER, GALLBLADDER, AND BILIARY TREE: The liver is normal in size, shape, and attenuation. No focal hepatic lesion or biliary ductal dilatation is present. The gallbladder contains some high density, but gallstones were not seen on an ultrasound performed yesterday. There is no gallbladder wall thickening or obvious pericholecystic inflammatory changes. PANCREAS: The pancreas is quite atrophic with barely visible parenchyma. SPLEEN: Unremarkable. The splenic border is minimally lobular. ADRENAL GLANDS: Unremarkable. KIDNEYS AND URETERS: The kidneys are normal in size, shape, and attenuation. No evidence of renal infarction. No hydronephrosis, hydroureter, or calculi seen. No perinephric stranding. BLADDER: Unremarkable. GASTROINTESTINAL TRACT: The small bowel in the right lower quadrant in the area of the emboli is dilated and thick-walled, slightly more so than the scan this morning. The wall measures about 4 mm whereas other small bowel loops have imperceptible mercado. No pneumatosis. No extraluminal gas. No portal venous gas. ABDOMINAL WALL: No significant hernia is appreciated. LYMPH NODES: No retroperitoneal lymphadenopathy. PELVIC VISCERA: The uterus and adnexa are unremarkable. No free pelvic fluid is seen. OSSEOUS STRUCTURES: Degenerative changes are noted throughout the spine, most marked at L4-L5. CT/CT angio abdomen pelvis IMPRESSION: 1. 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 2. The SMA is patent proximally, but there is an embolus present 6 cm beyond the origin of the SMA, obstructing flow to small bowel loops in the right lower quadrant/right abdomen. The small bowel in the right lower quadrant is dilated and thick-walled. This is worrisome for ischemic bowel. Findings appear slightly worse than they did at 11:41 AM today. 3. Incidental note made of an atrophic pancreas, degenerative changes in the spine and small bilateral pleural effusions. Fleischner guidelines were followed. This critical result was discussed with Dr. Rush at 7:30 PM on the evening of the exam and it was ascertained that the content and urgency of the report was understood at the time of direct communication.
--- NOTE | ~2022-11-15 | US_ITS ---
EXAMINATION: US ABDOMEN LIMITED CLINICAL INFORMATION: Abdominal pain. Right upper quadrant pain. Epigastric pain. COMPARISON: Ultrasound of abdomen 01/30/2022 TECHNIQUE: Real-time imaging of the right upper quadrant abdominal viscera.: Doppler exam was used. FINDINGS: PANCREAS: Normal. LIVER: Normal. The liver is normal in size. The liver contour is normal. Parenchymal echogenicity is normal. No focal hepatic lesion. There is no intrahepatic biliary duct dilatation seen. GALLBLADDER: No gallstone. There are 2 small echogenic foci adjacent to each other along the wall of the dependent gallbladder likely small polyps. These do not demonstrate movement or posterior acoustic shadowing to suggest these are stones. There is also do not demonstrate any ring down artifact. These measure 2 to 3 mm in size each. No gallbladder wall thickening or pericholecystic fluid. There is echogenic bile within the gallbladder. The adenomyosis seen on prior ultrasound study of 01/30/2022 is not apparent on today's study. COMMON BILE DUCT: Normal in caliber measuring 0.4 cm in diameter. RIGHT KIDNEY: Normal. No hydronephrosis. No renal calculi or focal parenchymal lesions. The kidney measures 9.4 cm in maximum dimension. FREE FLUID: None. US/US abdomen limited IMPRESSION: No acute abnormality. No gallstone or acute change of gallbladder wall. There are 2 small echogenic foci adjacent to each other along the wall of the gallbladder likely small polyps. There is echogenic bile within the gallbladder. No bile duct dilatation.
--- NOTE | 2022-11-15 04:55 | PC.NURSE ---
VSS aox4 no apparent distress pt c/o n/v/diarrhea/abd pain for a week, believes it to be food poisoning
--- NOTE | 2022-11-15 06:59 | ECG_ITS ---
Test Reason : HYPERTENSION Blood Pressure : / mmHG Vent. Rate : 079 BPM Atrial Rate : 079 BPM P-R Int : 134 ms QRS Dur : 124 ms QT Int : 384 ms P-R-T Axes : 049 -21 015 degrees QTc Int : 440 ms Normal sinus rhythm Possible Left atrial enlargement Right bundle branch block Abnormal ECG When compared with ECG of 30-JAN-2022 12:03, No significant change was found Referred By: Shruthi Ferguson Electronically Signed By:JANINE GONZALEZ
--- NOTE | 2022-11-15 07:06 | PC.NURSE ---
N2N report given to SHELTON Rae
[2022-11-15 07:45] LABS: Hematocrit 32.8 % (37.0-47.0); Hemoglobin 11.4 g/dl (12.0-16.0); Mean Corpuscular HGB Conc 34.8 g/dl (31.0-35.0); Mean Corpuscular Hemoglobin 31.5 pg (27.0-33.0); Mean Corpuscular Volume 90.6 fL (80.0-98.0); NRBC Pct Auto 0.1 /100WBC (0.0-0.2); Platelet Count 131 X10*3/uL (160-400); Red Blood Count 3.62 X10*6/uL (4.20-5.50); Red Cell Distribution Width 16.2 % (11.0-16.0)
[2022-11-15] MEDS: 0.9 % Sodium Chloride 1,000 ML 999 ML IV ×2 (07:45→11:05)
[2022-11-15] MEDS: ondansetron HCL 4 MG/2 ML VIAL IVPUSH (07:45)
[2022-11-15 07:46] LABS: WBC ABN SCTR FOR CBC 1
[2022-11-15 07:47] LABS: INTERNATIONAL NORM RATIO 1.1 (0.9-1.1); Prothrombin Time 12.9 SEC (10.0-13.1)
[2022-11-15 07:53] LABS: Alanine Aminotransferase 18 U/L (0-31); Albumin Level 4.2 g/dL (3.5-5.0); Alkaline Phosphatase 53 U/L (39-117); Anion Gap 17 (12-20); Aspartate Amino Transferase 23 U/L (5-31); Bilirubin Total 1.6 mg/dL (0.0-1.0); Blood Urea Nitrogen 15 mg/dL (9-16); Calcium 9.7 mg/dL (8.4-10.2); Carbon Dioxide 24 mmol/L (22-29); Chloride 97 mmol/L (96-108); Creatinine Clr Calc Pharmacy 49.5; Estimated Glomerular Filt Rate > 60; Glucose Random 163 mg/dL (60-115); Potassium 3.5 mmol/L (3.3-5.1); Sodium 134 mmol/L (135-145); Total Protein 7.3 g/dL (6.5-8.0)
[2022-11-15 08:03] LABS: Band Neutrophils Percent 15 % (3-5); Lymphocytes Percent Manual 4 % (20-40); Monocytes Percent Manual 4 % (2-11); Neutrophils Percent Manual 77 % (45-73)
--- NOTE | 2022-11-15 08:03 | ED.NAVMDI ---
HPI - Nausea/Vomiting/Diarrhea General Chief complaint: Nausea/Vomiting/Diarrhea Stated complaint: nausea vomiting Time Seen by Provider: 11/15/22 07:02 Source: patient Mode of arrival: EMS History of Present Illness HPI Narrative: 82-year-old female who has a history of hypertension and reports that she does drink daily, usually in the evening, but says that on Tuesday she ate a sandwich and developed some nausea and vomiting with epigastric discomfort later on that evening, Tuesday morning felt somewhat better but then later Tuesday afternoon developed more nausea, vomiting as well as diarrhea and she noticed there was blood in the stool as well. She otherwise denies any fevers or chills and denies any history of intra-abdominal surgeries. Patient states that the pain is constant and located in the epigastrium. She has taken Pepto-Bismol. Related Data Home Medications Medication Instructions Recorded Confirmed diltiazem HCl 180 mg capsule,24 180 mg PO DAILY 03/06/21 11/15/22 hr,extended release hydrochlorothiazide 25 mg tablet 25 mg PO DAILY 03/06/21 11/15/22 Allergies Allergy/AdvReac Type Severity Reaction Status Date / Time amoxicillin Allergy Rash Verified 03/06/21 13:33 Review of Systems Review of Systems: Pertinent positives and negatives as stated in HPI PMFSH Past Medical History Source: nursing notes reviewed Medical History HTN (hypertension) Social History Social History Alcohol intake: current Alcohol intake frequency: 0-2 drinks per day Alcohol type: beer, wine and hard liquor Patient Tobacco Use Status: Never used Tobacco Smoked in Last 30 Days: No Use of substances other than those prescribed or required for medical reasons: No Advance Directives: No Advance Directives Information Provided: No Physical Exam Vital Signs: Vital Signs: Last Vital Signs Temp 98.8 F 11/15/22 04:45 Pulse 77 11/15/22 11:01 Resp 16 11/15/22 11:01 BP 156/66 H 11/15/22 11:01 Pulse Ox 94 11/15/22 11:01 O2 Del Method Room Air 11/15/22 11:01 BMI result Body Mass Index 27.7 VITAL SIGNS: Reviewed. GENERAL: Well developed, well nourished, in no acute distress. HEAD: Normocephalic/atraumatic EYES: PERRLA, EOMI EARS: Ext canals without abnormality NOSE: Nares patent bilateral OROPHARYNX: no oral lesions noted, posterior pharynx clear NECK: Supple, no adenopathy LUNGS: Normal breath sounds. No adventitious sounds or accessory muscle use. SpO2<95> CARDIOVASCULAR: Regular rate and rhythm without noted murmurs ABDOMEN: Soft, epigastric discomfort but not right upper quadrant discomfort, non-distended with bowel sounds. JONH: External hemorrhoids, soft stool in rectal vault, dark in nature MUSCULOSKELETAL: No tenderness, deformities, or effusions noted on gross inspection. EXTREMITIES: No cyanosis, clubbing or edema. SKIN: Inspection of the skin reveals no rashes NEUROLOGIC: Alert and oriented x 4. Strength and sensation to light touch were grossly intact x 4. Medications Administered Discontinued Medications Generic Name Dose Route Start Last Admin Trade Name Freq PRN Reason Stop Dose Admin Al Hydroxide/Mg Hydroxide 30 ml 11/15/22 10:58 11/15/22 11:18 Magnesium Hydrox/Alum Hydrox 30 Ml Oral.Susp PO 11/15/22 10:59 30 ml ONCE ONE Administration Fentanyl 25 mcg 11/15/22 08:44 11/15/22 09:13 Fentanyl Citrate/Pf 100 Mcg/2 Ml Vial IVPUSH 11/15/22 08:45 25 mcg ONCE ONE Administration Protocol Sodium Chloride 1,000 mls @ 999 mls/hr 11/15/22 07:45 11/15/22 08:47 Ns IV 11/15/22 08:45 Infused .Q1H1M BEREKET Infusion Ceftriaxone Sodium 1 gm/ 50 mls @ 100 mls/hr 11/15/22 08:07 11/15/22 09:42 Sodium Chloride IV 11/15/22 08:36 Infused ONCE ONE Infusion Sodium Chloride 1,000 mls @ 999 mls/hr 11/15/22 11:00 11/15/22 11:05 Ns IV 11/15/22 12:00 999 mls/hr .Q1H1M BEREKET Administration Iohexol 80 ml 11/15/22 09:08 11/15/22 09:12 Iohexol 350 Mg/Ml 100 Ml Infus..Btl IV 11/15/22 09:09 80 ml ONCE ONE Administration Lidocaine HCl 10 ml 11/15/22 10:58 11/15/22 11:26 Lidocaine Hcl Viscous 2 % 15 Ml Solution MUCOUS MEM 11/15/22 10:59 10 ml ONCE ONE Administration Ondansetron HCl 4 mg 11/15/22 07:36 11/15/22 07:45 Ondansetron Hcl 4 Mg/2 Ml Vial IVPUSH 11/15/22 07:37 4 mg ONCE ONE Administration Pantoprazole Sodium 80 mg 11/15/22 08:44 11/15/22 09:13 Pantoprazole Sodium 40 Mg/10 Ml Vial IVPUSH 11/15/22 08:45 80 mg ONCE ONE Administration Medical Decision Making Medical Decision Making [facility] Narrative: 0806: 82-year-old female with history pre and clinical presentation of possible bleeding, pancreatitis. Lactic acid/blood cultures/antibiotics/IV fluid I reviewed all investigations to include imaging studies and my interpretation is that patient has a significant leukocytosis that is associated with a bandemia but is otherwise afebrile. Urinalysis is pending although patient denies any urinary symptoms there is no evidence of a colitis the patient will be admitted for further re-evaluation as sepsis, unknown source and GI bleed. Differential Diagnosis Please see the discussion above Consult Healthcare Provider Management of the patient was discussed with: Hospitalist Please see the discussion above Lab Data Please see the discussion above 11/15/22 07:29 11/15/22 07:29 Labs: Lab Results 11/15/22 11/15/22 11/15/22 Range/Units 07:29 07:29 07:29 WBC 22.8 H (4.8-10.8) X10*3/uL RBC 3.62 L (4.20-5.50) X10*6/uL Hgb 11.4 L (12.0-16.0) g/dl Hct 32.8 L (37.0-47.0) % MCV 90.6 (80.0-98.0) fL MCH 31.5 (27.0-33.0) pg MCHC 34.8 (31.0-35.0) g/dl RDW 16.2 H (11.0-16.0) % Plt Count 131 L (160-400) X10*3/uL MPV Not Reportable Immature Gran % (Auto) Cancelled Neut % (Auto) Cancelled Lymph % (Auto) Cancelled [place] % (Auto) Cancelled Eos % (Auto) Cancelled Baso % (Auto) Cancelled Lymph # (Auto) Cancelled [place] # (Auto) Cancelled Eos # (Auto) Cancelled Baso # (Auto) Cancelled Abs Immat Gran (auto) Cancelled Absolute Neuts (auto) Cancelled Absolute Nucleated RBC 0.030 H (0.0-0.012) X10*3/uL Nucleated RBC % (auto) 0.1 (0.0-0.2) /100WBC Neutrophils % (Manual) 77 H (45-73) % Band Neutrophils % 15 H (3-5) % Lymphocytes % (Manual) 4 L (20-40) % Monocytes % (Manual) 4 (2-11) % Abs Neuts (Manual) 21.0 H (2.0-8.3) X10*3/uL Lymphocytes # (Manual) 0.9 L (1.2-4.9) X10*3/uL Monocytes # (Manual) 0.9 (0.1-1.2) X10*3/uL Platelet Estimate DECREASED (NORMAL) Large Platelets PRESENT Plt Morphology Comment NORMAL RBC Morphology NOTED Polychromasia 1+ (0-2) /OIF Tear Drop Cells 1+ (0-2) /OIF Santiago Cells 1+ (0-2) /OIF Acanthocytes (Spur) 1+ (0-2) /OIF PT 12.9 (10.0-13.1) SEC INR 1.1 (0.9-1.1) Sodium 134 L (135-145) mmol/L Potassium 3.5 (3.3-5.1) mmol/L Chloride 97 (96-108) mmol/L Carbon Dioxide 24 (22-29) mmol/L Anion Gap 17 (12-20) BUN 15 (9-16) mg/dL Creatinine 0.72 (0.5-1.4) mg/dL Estim Creat Clear Calc 49.5 Estimated GFR > 60 Random Glucose 163 H (60-115) mg/dL Lactic Acid (0.5-2.0) mmol/L Calcium 9.7 (8.4-10.2) mg/dL Total Bilirubin 1.6 H (0.0-1.0) mg/dL AST 23 (5-31) U/L ALT 18 (0-31) U/L Alkaline Phosphatase 53 (39-117) U/L Total Protein 7.3 (6.5-8.0) g/dL Albumin 4.2 (3.5-5.0) g/dL Lipase 7 L (8-78) U/L Stool Occult Blood (NEGATIVE) 11/15/22 11/15/22 Range/Units 08:06 08:37 WBC (4.8-10.8) X10*3/uL RBC (4.20-5.50) X10*6/uL Hgb (12.0-16.0) g/dl Hct (37.0-47.0) % MCV (80.0-98.0) fL MCH (27.0-33.0) pg MCHC (31.0-35.0) g/dl RDW (11.0-16.0) % Plt Count (160-400) X10*3/uL MPV Immature Gran % (Auto) Neut % (Auto) Lymph % (Auto) [place] % (Auto) Eos % (Auto) Baso % (Auto) Lymph # (Auto) [place] # (Auto) Eos # (Auto) Baso # (Auto) Abs Immat Gran (auto) Absolute Neuts (auto) Absolute Nucleated RBC (0.0-0.012) X10*3/uL Nucleated RBC % (auto) (0.0-0.2) /100WBC Neutrophils % (Manual) (45-73) % Band Neutrophils % (3-5) % Lymphocytes % (Manual) (20-40) % Monocytes % (Manual) (2-11) % Abs Neuts (Manual) (2.0-8.3) X10*3/uL Lymphocytes # (Manual) (1.2-4.9) X10*3/uL Monocytes # (Manual) (0.1-1.2) X10*3/uL Platelet Estimate (NORMAL) Large Platelets Plt Morphology Comment RBC Morphology Polychromasia /OIF Tear Drop Cells /OIF Santiago Cells /OIF Acanthocytes (Spur) /OIF PT (10.0-13.1) SEC INR (0.9-1.1) Sodium (135-145) mmol/L Potassium (3.3-5.1) mmol/L Chloride (96-108) mmol/L Carbon Dioxide (22-29) mmol/L Anion Gap (12-20) BUN (9-16) mg/dL Creatinine (0.5-1.4) mg/dL Estim Creat Clear Calc Estimated GFR Random Glucose (60-115) mg/dL Lactic Acid 1.8 (0.5-2.0) mmol/L Calcium (8.4-10.2) mg/dL Total Bilirubin (0.0-1.0) mg/dL AST (5-31) U/L ALT (0-31) U/L Alkaline Phosphatase (39-117) U/L Total Protein (6.5-8.0) g/dL Albumin (3.5-5.0) g/dL Lipase (8-78) U/L Stool Occult Blood POSITIVE (NEGATIVE) Independent Interpretation I performed an independent interpretation of an: EKG Interpretation: Normal sinus rhythm, RBBB at baseline, HR-79, no STEMI, UT/QTC are within normal limits. No significant changes when compared to prior. Radiology Impression Radiologist Impression: My interpretation is in agreement with radiology's impression External Record Review External record reviewed: Prior outpatient labs Chronic Conditions Patient?s care impacted by: Hypertension Discharge Plan Discharge Clinical Impression: Leukocytosis, Dehydration, GI bleed, Alcohol use Patient Disposition: Admitted As Inpatient Prescriptions: No Action hydrochlorothiazide 25 mg tablet 25 mg PO DAILY diltiazem HCl 180 mg capsule,extended release 24 hr 180 mg PO DAILY
[2022-11-15 08:06] LABS: Acanthocytes 1+ (0-2) /OIF; Burr Cells 1+ (0-2) /OIF; Large Platelet PRESENT; Platelet Estimate DECREASED (NORMAL); Platelet Morphology Comment NORMAL; Polychromasia 1+ (0-2) /OIF; RBC Morphology NOTED; Tear Drop Cells 1+ (0-2) /OIF
[2022-11-15 08:12] LABS: OBS Int Ctl Valid YES; OBS1 POSITIVE (NEGATIVE)
[2022-11-15 08:14] LABS: Lymphocytes Absolute Manual 0.9 X10*3/uL (1.2-4.9); Monocytes Absolute Manual 0.9 X10*3/uL (0.1-1.2); White Blood Count 22.8 X10*3/uL (4.8-10.8)
[2022-11-15 08:35] LABS: Lipase 7 U/L (8-78)
--- NOTE | 2022-11-15 09:05 | PC.NURSE ---
awaiting pt from ct to return to give IVP meds
[2022-11-15 09:10] LABS: Lactic Acid 1.8 mmol/L (0.5-2.0)
[2022-11-15] MEDS: iohexoL 350 MG/ML 100 ML INFUS..BTL 80 ML IV (09:12)
[2022-11-15] MEDS: fentaNYL citrate/PF 100 MCG/2 ML VIAL 25 MCG IVPUSH (09:13)
[2022-11-15] MEDS: cefTRIAXone sodium 1 GM in 0.9 % Sodium Chloride 50 ML IV (09:13)
[2022-11-15] MEDS: Pantoprazole Sodium 40 MG/10 ML VIAL 80 MG IVPUSH (09:13)
[2022-11-15] MEDS: Magnesium Hydrox/Alum Hydrox 30 ML ORAL.SUSP PO (11:18)
[2022-11-15] MEDS: Lidocaine HCl Viscous 2 % 15 ML SOLUTION 10 ML MUCOUS MEM (11:26)
--- NOTE | 2022-11-15 12:17 | PHA.MEDREC ---
Pharmacy Consult ? Medication Reconciliation Pharmacy has completed the medication reconciliation.
--- NOTE | 2022-11-15 12:26 | PM.IMHP ---
History of Present Illness Date of Service: 11/15/22 Attending physician on admission: Nya Plaza Chief Complaint: n/v/d, epigastric pain 82-year-old female with history of hypertension who consumes 1 alcoholic beverage daily presents to the ED for evaluation of epigastric pain, nausea, vomiting, diarrhea. She states on Tuesday after eating salad and a sandwich, developed nonbloody emesis and nausea with epigastric pain. The epigastric pain has been constant with intermittent nausea and occasional vomiting. Yesterday also developed several episodes of diarrhea. She did notice bright red blood per rectum x1 and a single episode of dark stool but states she did take Pepto-Bismol. She has not been able to tolerate p.o. due to anorexia. She has not had any further episodes of vomiting and diarrhea today but still feels unwell with nonradiating epigastric pain. She reports only occasional NSAID use and consumes 1 hard alcoholic beverage on a daily basis. No smoking or illicit drug use. On arrival, vital signs stable. Leukocytosis of 22.8 with bandemia of 15%. She does have a normocytic anemia with H/ H 11.4/32.8%, MCV 90 0.6% baseline unknown. Renal function normal, electrolyte levels normal except for mild hyponatremia 134. Hepatic function normal. Lipase 7. Urinalysis with trace ketones, slight glucose, and elevated specific gravity. No leukocytes, nitrites, blood. Stool occult blood is positive. KUB Unremarkable. CT abdomen /pelvis is negative for any bowel obstruction, evidence of GI bleed but does show mildly thickened wall of the ileum most likely due to enteritis. In the ED, received IV ceftriaxone, fentanyl, ondansetron, 2 L IV NS. Review of Systems Review of Systems: General: No fevers, malaise, unintentional weight loss HEENT: No blurred vision, diplopia. No sore throat, nasal congestion, rhinorrhea, sinus pain, ear pain Cardiovascular: No chest pain, palpitations, or leg edema Respiratory: No shortness of breath, wheezing, cough GI: +epigastric pain, +n/v/d, ?melena, BRBPR. No constipation : No dysuria, hematuria, increased urinary frequency, decreased urinary output MSK: No myalgia, back pain Neuro: No headaches, weakness, paresthesias Skin: No rashes or lesions [facility] Medical History HTN (hypertension) Social History Alcohol intake: current Alcohol intake frequency: 0-2 drinks per day Alcohol type: beer, wine and hard liquor Patient Tobacco Use Status: Never used Tobacco Smoked in Last 30 Days: No Use of substances other than those prescribed or required for medical reasons: No Advance Directives: No Advance Directives Information Provided: No Nutrition Risks: Poor intake 0-25% >4 days Meds Allergies Allergy/AdvReac Type Severity Reaction Status Date / Time amoxicillin Allergy Rash Verified 03/06/21 13:33 Active Medications: Current Medications Acetaminophen (Acetaminophen 325 Mg Tablet) 650 mg PO Q6H PRN PRN Reason: Pain, Mild (Pain Scale 1-3) Al Hydroxide/Mg Hydroxide (Magnesium Hydrox/Alum Hydrox 30 Ml Oral.Susp) 30 ml PO Q4H PRN PRN Reason: Heartburn/Nausea Metronidazole (Flagyl) 500 mg in 100 mls @ 100 mls/hr IV Q8H [facility] Ondansetron HCl (Ondansetron Hcl 4 Mg/2 Ml Vial) 4 mg IVPUSH Q8H PRN PRN Reason: Nausea and Vomiting Pantoprazole Sodium (Pantoprazole Sodium 40 Mg/10 Ml Vial) 40 mg IVPUSH BID@0630,1630 [facility] Pharmacy Consult (Consult Rx Perform Med Rec) 1 each MISCELLANE ONCE PRN PRN Reason: Consult order Sodium Chloride (0.9 % Sodium Chloride Flush 3 Ml Syringe) 3 ml IVFLUSH QSHIFT [facility] Sucralfate (Sucralfate 1 Gm Tablet) 1 gm PO QIDACHS [facility] Home Medications Medication Instructions Recorded Confirmed Last Taken Type diltiazem HCl 180 mg capsule,24 180 mg PO DAILY 03/06/21 11/15/22 Unknown History hr,extended release hydrochlorothiazide 25 mg tablet 25 mg PO DAILY 03/06/21 11/15/22 Unknown History Physical Exam Vital Signs and Narrative: Vital Signs: Last Vital Signs Temp 98.8 F 11/15/22 04:45 Pulse 77 11/15/22 11:01 Resp 16 11/15/22 11:01 BP 156/66 H 11/15/22 11:01 Pulse Ox 94 11/15/22 11:01 O2 Del Method Room Air 11/15/22 11:01 BMI result Body Mass Index 27.7 Constitutional - Awake and Alert, No apparent distress, pallor, tired appearing Eyes - PERRLA, EOMI Cardiovascular - S1S2, RRR, No edema Respiratory - Normal lung expansion, Normal respiratory effort, No respiratory distress, CTA bilaterally Gastrointestinal - Mild epigastric ttp without guarding or rebound. ND; +BS Extremities - no calf tenderness bilaterally, no swelling Skin - Warm/Dry Neurological - Alert & oriented x3, CN II-XII in tact, 5/5 strength BUE and BLE Psychological - Appropriate affect Results Labs 11/15/22 07:29 11/15/22 07:29 Labs: Laboratory Results - last 24 hr 11/15/22 11/15/22 11/15/22 07:29 07:29 07:29 MCV 90.6 MCH 31.5 MCHC 34.8 RDW 16.2 H Plt Count 131 L MPV Not Reportable Immature Gran % (Auto) Cancelled Neut % (Auto) Cancelled Lymph % (Auto) Cancelled [place] % (Auto) Cancelled Eos % (Auto) Cancelled Baso % (Auto) Cancelled Lymph # (Auto) Cancelled [place] # (Auto) Cancelled Eos # (Auto) Cancelled Baso # (Auto) Cancelled Abs Immat Gran (auto) Cancelled Absolute Neuts (auto) Cancelled Absolute Nucleated RBC 0.030 H Nucleated RBC % (auto) 0.1 Neutrophils % (Manual) 77 H Band Neutrophils % 15 H Lymphocytes % (Manual) 4 L Monocytes % (Manual) 4 Abs Neuts (Manual) 21.0 H Lymphocytes # (Manual) 0.9 L Monocytes # (Manual) 0.9 Platelet Estimate DECREASED Large Platelets PRESENT Plt Morphology Comment NORMAL RBC Morphology NOTED Polychromasia 1+ (0-2) Tear Drop Cells 1+ (0-2) Santiago Cells 1+ (0-2) Acanthocytes (Spur) 1+ (0-2) PT 12.9 INR 1.1 Anion Gap 17 Estim Creat Clear Calc 49.5 Estimated GFR > 60 Random Glucose 163 H Lactic Acid Calcium 9.7 Total Bilirubin 1.6 H AST 23 ALT 18 Alkaline Phosphatase 53 Total Protein 7.3 Albumin 4.2 Lipase 7 L Stool Occult Blood 11/15/22 11/15/22 08:06 08:37 MCV MCH MCHC RDW Plt Count MPV Immature Gran % (Auto) Neut % (Auto) Lymph % (Auto) [place] % (Auto) Eos % (Auto) Baso % (Auto) Lymph # (Auto) [place] # (Auto) Eos # (Auto) Baso # (Auto) Abs Immat Gran (auto) Absolute Neuts (auto) Absolute Nucleated RBC Nucleated RBC % (auto) Neutrophils % (Manual) Band Neutrophils % Lymphocytes % (Manual) Monocytes % (Manual) Abs Neuts (Manual) Lymphocytes # (Manual) Monocytes # (Manual) Platelet Estimate Large Platelets Plt Morphology Comment RBC Morphology Polychromasia Tear Drop Cells Santiago Cells Acanthocytes (Spur) PT INR Anion Gap Estim Creat Clear Calc Estimated GFR Random Glucose Lactic Acid 1.8 Calcium Total Bilirubin AST ALT Alkaline Phosphatase Total Protein Albumin Lipase Stool Occult Blood POSITIVE Imaging Radiologist's Impressions: Impressions KUB X-Ray 11/15/22 08:23 IMPRESSION: Unremarkable examination. Abdomen/Pelvis CT 11/15/22 09:25 IMPRESSION: No evidence of bowel obstruction. No evidence of GI bleed. Mildly thickened wall of ileum most likely due to enteritis. Diverticulosis without diverticulitis. Assessment and Plan (1) Enteritis: Status: Acute (2) Leukocytosis: Status: Acute Plan 82-year-old female with history of hypertension who consumes 1 alcoholic beverage daily to be observed for acute gastritis/enteritis. #Acute gastritis vs enteritis- ?alcohol induced vs infectious -Consumes 1 alcoholic beverage daily (tequila or marc beam) -Heme positive stool -IV PPI, carafate -ondansetron prn, maalox prn -No diarrhea since yesterday- unlikelly CDiff. Will check GI panel -Gi consult -Given bandemia, will cover wtih bacterial enteritis with IV ceftriaxone, flagyl #Normocytic anemia- chronicity unclear -?acute on chronic due to acute blood loss -GI consult -H/H above Transfusion threshold #Daily etoh use -hepatic function normal -1 etoh kenrick daily in female appropriate #Leukocytosis -likely acute give bandemia 15% -unlikely to be reactive -?infectious- GI etiology (UA, CXR negative)- as above -Follow CBC, if no improvement #HTN- reasonably controlled -continue home meds DVT prophylaxis- SCPs Full code Attending- Dr. Plaza Time Spent With Patient Time: Total time managing care of this patient today ____ minutes. Quality Stroke Does the patient have a stroke diagnosis?: No VTE Prior VTE?: No VTE Risk Level:: Medical - moderate - high VTE Device Contraindication: N/A - Device Ordered VTE Drug Contraindication: Treatment Not Indicated
[2022-11-15 12:36] LABS: Appearance Urine Clear; Color Urine Yellow; Glucose Urine UA 250 mg/dL (Negative); Leukocyte Esterase Urine Negative (Negative); Nitrite Urine Negative (Negative); Specific Gravity - Urine >= 1.030 (1.005-1.025); Urine Blood Negative (Negative); Urine Ketones 15 mg/dL (Negative); Urine Protein Trace mg/dL (Neg-Trace)
[2022-11-15] MEDS: metroNIDAZOLE/NS 500 MG/100 ML PIGGYBACK 100 MG IV ×2 (12:49→22:01)
[2022-11-15 13:13] LABS: Magnesium 1.8 mg/dL (1.6-2.6)
[2022-11-15] MEDS: Sucralfate 1 GM TABLET PO ×2 (15:56→20:41)
--- NOTE | 2022-11-15 18:09 | P.EN_ITS ---
Event Note Date of Service: 11/15/22 Event Note: GI Consult -Full note dictated-history from patient and EMR Imp: Acute enteritis due to probable food borne illness. Given her initial pain, elevated WBC count, enteritis on the CT scan, and some diarrhea with blood, this would speak for a possible bacterial etiology. However, at this point she appears quite stable with resolving symptoms and a nontoxic appearance. Her abdominal exam is presently benign. I don't think this represents any UGI pathology nor any significant colonic pathology. She describes a recent colonoscopy at [facility] with Dr. Daly that was negative except for some polyps. Rec: Check stool for C&S, follow up CBC and chemistries, D/C PPI and sucralfate, clear liqs and advance diet as tolerated. Given her good clinical appearance one can hold off on empiric antibiotics for the time being. If things worsen with abdominal pain, fevers, bleeding, etc, I would then treat with an empiric antibiotic such as Cipro or Azithromycin. I don't think she needs an EGD or colonoscopy at this time. If things are improved tomorrow I would recommend advancing her diet to low residue and lactose-free. D/W patient in detail and she is comfortable with this plan. Thanks. Time Spent With Patient Time: Total time managing care of this patient today ____ minutes.
[2022-11-15] MEDS: 0.9 % Sodium Chloride Flush 3 ML SYRINGE IVFLUSH (20:45)
[2022-11-16 03:38] VITALS: BP 146/67; PULSE 74; RESP 16; TEMP 36.4; O2SAT 93
--- NOTE | 2022-11-16 04:40 | CONS_ITS ---
DATE OF SERVICE: 11/15/2022 REASON FOR CONSULTATION: Abdominal pain, abnormal CT scan of small bowel, and rectal bleeding. HISTORY OF PRESENT ILLNESS: This has been obtained from the patient and the medical record. The patient is a generally healthy 82-year-old female who was in her usual state of health up until yesterday. She describes eating a lens grinder rough and a salad at a restaurant the evening before. That evening and overnight, she felt well and then over the course of yesterday, developed progressive fairly diffuse abdominal pain, nausea and vomiting, and some diarrhea. There was no associated hematemesis nor coffee-grounds emesis. She did notice 1 small episode of bright red blood per rectum, but no other signs of bleeding such as melena, nor significant rectal bleeding. Due to the persistent and worsening pain, she came to the ER early this morning. Prior to this admission, she denies having any chronic GI complaints. She generally enjoys a good appetite. She reports that her bowel movements are generally regular and without bleeding. She describes a colonoscopy within the past year at [facility] with Dr. Daly that was negative except for some polyps. This was done for the evaluation of a positive Cologuard test. The patient denies any ill contacts, travel, nor antibiotic use. As far she knows, nobody else who ate with her at the restaurant became ill. Since admission here, she has had no further vomiting. She has had no further bowel movements. Her abdominal pain has improved as well. In general, she is definitely feeling better than she had been. She has been afebrile all day except for a low-grade temperature of 100.3 this evening. Vital signs have otherwise been stable. MEDICATIONS: At home included diltiazem and hydrochlorothiazide. Her medications here in the hospital include acetaminophen, diltiazem, hydrochlorothiazide, IV Flagyl, Zofran p.r.n., IV Protonix, sucralfate and a single dose of ceftriaxone that was given, but then discontinued. PAST MEDICAL HISTORY: Bilateral carpal tunnel surgery. Right shoulder surgery. Hypertension. She denies history of VA, stroke, diabetes, nor lung disease. SOCIAL HISTORY: She is single. She does not smoke nor use any significant amounts of alcohol. She describes having 1 drink per day. PAST FAMILY HISTORY: Noncontributory. REVIEW OF SYSTEMS: CONSTITUTIONAL: Prior to the admission, she had been feeling well with good energy and good appetite. SKIN: No rash. No pruritus. CARDIAC: No chest pain. PULMONARY: No cough, hemoptysis. GI: As above. URINARY: No dysuria. No hematuria. NEUROLOGIC: No headache or seizures. PHYSICAL EXAMINATION: GENERAL: The patient is a pleasant, alert, comfortable-appearing female, in no distress. SKIN: Warm and dry. Anicteric sclerae. Moist mucous membranes. NECK: Supple. CHEST: Clear. CARDIAC: Normal S1, S2. ABDOMEN: Soft, nondistended. Normal bowel sounds. There is some very mild diffuse tenderness, particularly in the left upper quadrant but without mass, rebound, or guarding. EXTREMITIES: Without edema. NEUROLOGICAL: She is alert and oriented. LABORATORY DATA: White blood cell count 22.8, hemoglobin 11.4, MCV 90, platelets 131,000. Hemoglobin in January 2022 was 11.6. PT 12.9 with INR 1.1. Normal electrolytes. BUN 15, creatinine 0.7. Lactic acid level 1.8. Total bilirubin 1.6, AST 23, ALT 18, alkaline phosphatase 53, albumin 4.2, lipase 7. Stool was Hemoccult positive. Chest x-ray was negative for any acute cardiopulmonary process. Abdominal x-ray was negative for any obstruction or free air. Her CT of the abdomen and pelvis describes some mildly thickened wall of the ileum without any evidence of perforation, obstruction, nor abscess. There is some colonic diverticulosis, but without diverticulitis. IMPRESSION: Given the patient's clinical history of the acute onset of her symptoms after eating in a restaurant with an associated elevated white blood cell count, some abdominal pain, and some transient bleeding, I feel this is most consistent with an episode of a food-borne illness. Given the clinical history, this may very well be a bacterial illness. At this point, she does appear to be much improved compared to when she 1st got to the hospital given that she has had no further vomiting, diarrhea, bleeding, nor any worsening abdominal pain. She has been afebrile except for the low-grade temperature this evening. I do not think her symptoms are reflective of any upper GI pathology such as ulcer disease nor any chronic colonic condition such as colitis or neoplasm, particularly given the reported colonoscopy within the past year and her clinical history. At this point, I would check stools for culture and sensitivity, follow up her CBC and chemistries, and start her on clear liquids as tolerated. I would also stop her PPI and sucralfate as I do not think she is having any upper GI process causing her symptoms. At this, point I would hold off on empiric antibiotics for the time being given her good clinical appearance and what appears to be some rapid improvement. However, if things worsen with increasing abdominal pain, fevers, bleeding, etc.,, I would then treat her with empiric antibiotics such as Cipro or azithromycin, as well as obtaining a repeat CT scan and surgical consultation. I do not think she needs any type of endoscopic procedure at this time. If things continue to improve, I would then advance her diet to low residue and lactose-free. This has all been discussed in detail with the patient and she is comfortable with this plan. Thank you for the consultation. MD SILVINA Castillo/LA NENA / [id number] ELIAZAR
[2022-11-16] MEDS: Pantoprazole Sodium 40 MG/10 ML VIAL IVPUSH (05:45)
[2022-11-16] MEDS: metroNIDAZOLE/NS 500 MG/100 ML PIGGYBACK 100 MG IV (05:46)
[2022-11-16 06:18] LABS: Basophils Absolute Auto 0.1 X10*3/uL (0.0-0.2); Basophils Percent Auto 0.2 % (0-2); Hematocrit 29.9 % (37.0-47.0); Hemoglobin 10.1 g/dl (12.0-16.0); Imm Gran Pct Auto 4.8 % (0.0-0.4); Lymphocytes Absolute Auto 1.1 X10*3/uL (1.2-4.9); Lymphocytes Percent Auto 2.5 % (20-40); MANUAL DIFF FLAG SCAN; Mean Corpuscular HGB Conc 33.8 g/dl (31.0-35.0); Mean Corpuscular Hemoglobin 31.2 pg (27.0-33.0); Mean Corpuscular Volume 92.3 fL (80.0-98.0); Monocytes Absolute Auto 2.6 X10*3/uL (0.1-1.2); Monocytes Percent Auto 5.9 % (2-11); Neutrophils Absolute Auto 38.2 x10*3/uL (2.0-8.3); Neutrophils Percent Auto 86.6 % (45-73); PLT CLUMP 1; Red Blood Count 3.24 X10*6/uL (4.20-5.50); Red Cell Distribution Width 16.4 % (11.0-16.0); SCAN SMEAR FLAG 1
[2022-11-16 06:37] LABS: Anion Gap 14 (12-20); Blood Urea Nitrogen 12 mg/dL (9-16); Calcium 8.8 mg/dL (8.4-10.2); Carbon Dioxide 21 mmol/L (22-29); Chloride 102 mmol/L (96-108); Creatinine Clr Calc Pharmacy 53.6; Estimated Glomerular Filt Rate > 60; Glucose Random 109 mg/dL (60-115); Potassium 3.1 mmol/L (3.3-5.1); Sodium 134 mmol/L (135-145)
[2022-11-16 07:12] LABS: White Blood Count 44.1 X10*3/uL (4.8-10.8)
[2022-11-16 07:25] LABS: Platelet Count 114 X10*3/uL (160-400)
[2022-11-16 07:26] LABS: SLIDE REVIEW VERIFIED
[2022-11-16 07:51] VITALS: BP 177/76; PULSE 71; RESP 18; TEMP 36.2; O2SAT 95
--- NOTE | 2022-11-16 08:22 | PM.HEMONCCN ---
Subjective - Subjective Chief complaint: Abdominal pain, nausea emesis Patient: new to practice Consult date: 11/16/22 Primary Care Provider: Carleen Samson MD HPI - Consult Narrative Reason for consult: Leukocytosis Narrative: Jennifer Mccray is a 82 year old female admitted to [facility] on 11/15/2022 with complaints of abdominal pain, nausea and diarrhea. She ate food outside at a restaurant on Tuesday and a few hours later developed severe abdominal discomfort associated with nausea and emesis. She denies fever or chills. She did have 1 or 2 episodes of diarrhea associated with blood. Because the pain was so intense she came to emergency department. CT abdomen/pelvis with contrast revealed mildly thickened wall of ileum likely due to enteritis. No evidence of GI bleed, diverticulosis without diverticulitis. No hepatosplenomegaly. Patient states that prior to this week and she was in her usual state of health. She has not experienced any other symptoms such as fatigue, loss of appetite, weight loss, fever, chills or night sweats. She is routinely followed by her PCP. Her blood work revealed leukocytosis with a WBC count of 22.8 on admission. Previously in January 2022 it was 4.6 K and in August 2021 it was 6.4 K. she has mild normocytic anemia with hemoglobin of 11.4 and mild thrombocytopenia with platelets of 131 K. She is up-to-date with screening mammogram and colonoscopy. Review of Systems - Constitutional Reports as per HPI - Cardiovascular Reports no additional cardiovascular complaints - Respiratory Reports no additional respiratory complaints - Gastrointestinal Reports no additional gastrointestinal complaints [facility] Medical History: Medical History (Last Reviewed 11/15/22 @ 12:53 by GENO Bernabe) HTN (hypertension) Social History: Social History (Last Reviewed 11/15/22 @ 12:53 by GENO Bernabe) Living Situation History: Household Members: None Household Members Other:: self Housing: House Do you presently have visiting nurse or other home services: No Tobacco History: Patient Tobacco Use Status: Never used Tobacco Occupation Assessmet: service: No Home Medications and Allergies Current Medications: Current Medications Acetaminophen (Acetaminophen 325 Mg Tablet) 650 mg PO Q6H PRN PRN Reason: Pain, Mild (Pain Scale 1-3) Al Hydroxide/Mg Hydroxide (Magnesium Hydrox/Alum Hydrox 30 Ml Oral.Susp) 30 ml PO Q4H PRN PRN Reason: Heartburn/Nausea Diltiazem HCl (Diltiazem Hcl Cd 180 Mg Cap.Er.24h) 180 mg PO DAILY BEREKET; Protocol Hydrochlorothiazide (Hydrochlorothiazide 25 Mg Tablet) 25 mg PO DAILY BEREKET; Protocol Ondansetron HCl (Ondansetron Hcl 4 Mg/2 Ml Vial) 4 mg IVPUSH Q8H PRN PRN Reason: Nausea and Vomiting Pharmacy Consult (Consult Rx Perform Med Rec) 1 each MISCELLANE ONCE PRN PRN Reason: Consult order Sodium Chloride (0.9 % Sodium Chloride Flush 3 Ml Syringe) 3 ml IVFLUSH QSHIFT [facility] Last Admin: 11/15/22 20:45 Dose: 3 ml Home Medications Medication Instructions Recorded Confirmed Type diltiazem HCl 180 mg capsule,24 180 mg PO DAILY 03/06/21 11/15/22 History hr,extended release hydrochlorothiazide 25 mg tablet 25 mg PO DAILY 03/06/21 11/15/22 History Allergies Allergy/AdvReac Type Severity Reaction Status Date / Time amoxicillin Allergy Rash Verified 03/06/21 13:33 Physical Exam Vital signs: Vital Signs Temp 97.2 F 11/16/22 07:51 Pulse 71 11/16/22 07:51 Resp 18 11/16/22 07:51 BP 177/76 H 11/16/22 07:51 Pulse Ox 95 11/16/22 07:51 O2 Del Method Room Air 11/16/22 07:51 Intake & Output 11/15/22 11/16/22 11/16/22 18:59 06:59 18:59 Intake Total 2150 / 2350 200 / 2350 Balance 2150 / 2350 200 / 2350 Intake: Intake, IV Amount 2150 / 2350 200 / 2350 0.9 % Sodium Chloride 1,000 ml 2000 / 2000 @ 999 mls/hr IV .Q1H1M [facility] Rx#: [id number] cefTRIAXone sodium 1 gm In 0.9 50 / 50 % Sodium Chloride 50 ml @ 100 mls/hr IV ONCE ONE Rx#: [id number] metroNIDAZOLE/NS 500 mg In 100 100 / 300 200 / 300 ml @ 100 mls/hr IV Q8H [facility] Rx#: [id number] Other: NPO Yes Number of Unmeasured Voids 1 Urine Bathroom Last Bowel Movement 11/14/22 11/14/22 Weight 61.2 kg [place] Weight in Grams [id number] Weight 61.2 kg - Constitutional Present: no acute distress - Routine HEENT Exam Head: Present: normal inspection Eye: Present: normal appearance - Routine Neck Exam Present: supple. Absent: lymphadenopathy - Routine Respiratory Exam Present: CTAB - Routine Cardiovascular Exam Cardiovascular: Present: RRR, S1, S2 - Routine Abdominal Exam Present: tenderness - Routine Extremities Exam Absent: pedal edema - Routine Skin Exam Present: intact Hem/Onc Consult Result - Labs CBC & Chem 7: 11/16/22 06:00 11/16/22 06:00 Labs: Short CBC 11/16/22 Range/Units 06:00 WBC 44.1 H* (4.8-10.8) X10*3/uL Hgb 10.1 L (12.0-16.0) g/dl Hct 29.9 L (37.0-47.0) % Plt Count 114 L (160-400) X10*3/uL BMP 11/16/22 06:00 Sodium 134 L Potassium 3.1 L Chloride 102 Carbon Dioxide 21 L BUN 12 Creatinine 0.65 Calcium 8.8 D Urine 11/15/22 Range/Units 12:29 Urine Color Yellow Urine Appearance Clear Urine pH 6.0 (5.0-9.0) Ur Specific [place] >= 1.030 H (1.005-1.025) Urine Protein Trace (Neg-Trace) mg/dL Urine Glucose (UA) 250 H (Negative) mg/dL Assessment and Plan Patient Active problem list reviewed?: Yes (1) Leukocytosis Status: Acute Assessment and plan: 1. This is a pleasant 82-year-old woman admitted with symptoms of acute gastroenteritis found to have significant leukocytosis. Her WBC count today is 44 K, predominantly neutrophilic leukocytosis with mild normocytic anemia and thrombocytopenia. Previous CBC in February 2022 showed normal WBC of 4.6 K.. She has had no constitutional symptoms prior to her admission and has been in her usual state of health until 2 days ago. She is on antibiotics, her diarrhea has resolved completely. She continues to have mild abdominal tenderness and generalized weakness. Her leukocytosis appears to be leukemoid reaction to her current infection. WBCs appear to be mature neutrophils with some left shift and toxic granulations suggestive of infection. She has mild chronic thrombocytopenia and anemia. I have submitted iron studies, vitamin B12 and folic acid levels. She should have another CBC in a few weeks after her symptoms resolve completely. If she has persistent leukocytosis, further hematological workup can be performed. I thank you for this consultation. - Time Spent With Patient Time Spent with Patient (in minutes): 15
[2022-11-16] MEDS: dilTIAZem HCL CD 180 MG CAP.ER.24H PO (08:57)
[2022-11-16] MEDS: hydroCHLOROthiazide 25 MG TABLET PO (08:57)
[2022-11-16] MEDS: Acetaminophen 325 MG TABLET 650 MG PO (08:57)
[2022-11-16] MEDS: 0.9 % Sodium Chloride Flush 3 ML SYRINGE IVFLUSH ×2 (08:58→16:02)
--- NOTE | 2022-11-16 09:12 | MHC.CM.PN ---
[facility] DELIVERED PT LIVES ALONE IN A ONE LEVEL HOME. INDEPENDENT AT BASELINE. +COVID VAX NO HCP BUT WILLING TO DO ONE WHILE HERE. PCP DR. LANIER DP: HOME, NO SERVICES ANTICIPATED. PT MAY NEED A RIDE HOME VIA C SHUTTLE VS. FRIEND FOR TRANSPORT.
--- NOTE | 2022-11-16 10:30 | HO.PM.IMPN ---
Subjective Subjective Date of Service: 11/16/22 Interval History: Seen in follow up for enteritis, po intolerance Interval history: Still feeling weak, mild epigastric pain. No vomiting, diarrhea since tuesday. On reexam, worsening epigastric pain. No n/v. Pt afebrile Review of Systems Review of Systems: Yes all other systems are reviewed and are negative Physical Exam Vital Signs: Vital Signs: Last Vital Signs Temp 97.2 F 11/16/22 07:51 Pulse 71 11/16/22 07:51 Resp 18 11/16/22 07:51 BP 177/76 H 11/16/22 07:51 Pulse Ox 95 11/16/22 07:51 O2 Del Method Room Air 11/16/22 07:51 BMI result Body Mass Index 26.3 Constitutional - Awake and Alert, No apparent distress Eyes - PERRLA, EOMI Cardiovascular - S1S2, RRR, No edema Respiratory - Normal lung expansion, Normal respiratory effort, No respiratory distress, CTA bilaterally Gastrointestinal - NT / ND; +BS; No rebound or guarding Extremities - no calf tenderness bilaterally, no swelling Skin - Warm/Dry Neurological - Alert & oriented x3 Psychological - Appropriate affect Objective Data Active Medications Acetaminophen (Acetaminophen 325 Mg Tablet) 650 mg PO Q6H PRN PRN Reason: Pain, Mild (Pain Scale 1-3) Last Admin: 11/16/22 08:57 Dose: 650 mg Documented By: MELISSA Al Hydroxide/Mg Hydroxide (Magnesium Hydrox/Alum Hydrox 30 Ml Oral.Susp) 30 ml PO Q4H PRN PRN Reason: Heartburn/Nausea Diltiazem HCl (Diltiazem Hcl Cd 180 Mg Cap.Er.24h) 180 mg PO DAILY BEREKET; Protocol Last Admin: 11/16/22 08:57 Dose: 180 mg Documented By: MELISSA Hydrochlorothiazide (Hydrochlorothiazide 25 Mg Tablet) 25 mg PO DAILY BEREKET; Protocol Last Admin: 11/16/22 08:57 Dose: 25 mg Documented By: MELISSA Ondansetron HCl (Ondansetron Hcl 4 Mg/2 Ml Vial) 4 mg IVPUSH Q8H PRN PRN Reason: Nausea and Vomiting Pharmacy Consult (Consult Rx Perform Med Rec) 1 each MISCELLANE ONCE PRN PRN Reason: Consult order Sodium Chloride (0.9 % Sodium Chloride Flush 3 Ml Syringe) 3 ml IVFLUSH QSHIFT [facility] Last Admin: 11/16/22 08:58 Dose: 3 ml Documented By: MELISSA Labs 11/16/22 06:00 11/16/22 06:00 Labs: Laboratory Results - last 24 hr 11/15/22 11/15/22 11/16/22 07:29 12:29 06:00 MCV 92.3 MCH 31.2 MCHC 33.8 RDW 16.4 H Plt Count 114 L MPV Not Reportable Immature Gran % (Auto) 4.8 H Neut % (Auto) 86.6 H Lymph % (Auto) 2.5 L [place] % (Auto) 5.9 Eos % (Auto) 0.0 Baso % (Auto) 0.2 Lymph # (Auto) 1.1 L [place] # (Auto) 2.6 H Eos # (Auto) 0.0 Baso # (Auto) 0.1 Abs Immat Gran (auto) 2.10 H Absolute Neuts (auto) 38.2 H Absolute Nucleated RBC 0.020 H Nucleated RBC % (auto) 0.0 Smear Tech's Comments VERIFIED Anion Gap Estim Creat Clear Calc Estimated GFR Random Glucose Calcium Magnesium 1.8 Urine Color Yellow Urine Appearance Clear Urine pH 6.0 Ur Specific [place] >= 1.030 H Urine Protein Trace Urine Glucose (UA) 250 H Urine Ketones 15 Urine Blood Negative Urine Nitrite Negative Ur Leukocyte Esterase Negative 11/16/22 06:00 MCV MCH MCHC RDW Plt Count MPV Immature Gran % (Auto) Neut % (Auto) Lymph % (Auto) [place] % (Auto) Eos % (Auto) Baso % (Auto) Lymph # (Auto) [place] # (Auto) Eos # (Auto) Baso # (Auto) Abs Immat Gran (auto) Absolute Neuts (auto) Absolute Nucleated RBC Nucleated RBC % (auto) Smear Tech's Comments Anion Gap 14 Estim Creat Clear Calc 53.6 Estimated GFR > 60 Random Glucose 109 Calcium 8.8 D Magnesium 2.0 Urine Color Urine Appearance Urine pH Ur Specific [place] Urine Protein Urine Glucose (UA) Urine Ketones Urine Blood Urine Nitrite Ur Leukocyte Esterase Assessment and Plan (1) Enteritis: Status: Acute (2) Leukocytosis: Status: Acute (3) Epigastric pain: Status: Acute Plan 82-year-old female with history of hypertension who? consumes 1 alcoholic beverage daily to be observed for acute gastritis/enteritis. #Acute enteritis- likely infectious -Heme positive stool- no colonosocpy/EGD at this time per GI. Slight drop in Hgb 11.4 -->10.1 -Dc ppi, carafate per GI -ondansetron prn, maalox prn -No diarrhea since tuesday, vomiting resolved- unlikely CDiff. Will check GI panel but unable to account for significant elevation in WBC, will also check for CDiff -Gi consult -Given well, nontoxic appearance hold on abx per GI. If worsening abd pain, fevers, consider cipro or azithro per GI -Recurrence of epigastric pain this evening. Repeat CBC, CMP, Lipase ordered. Abd u/s ordered. Pt afebrile. 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 Likely has baseline normocytic anemia -GI consult- hold on scope for now -H/H above Transfusion threshold -Initiate ferrous sulfate #Daily etoh use -hepatic function normal -1 etoh kenrick daily in female appropriate #Leukocytosis -likely acute give bandemia 15% -WBC 22 --> 44 -unlikely to be reactive -?infectious- UA neg, CXR neg. GI symptoms now resolve, possibly acute enteritis from food poisoning -Given significant increase in WBC in asymptomatic patient, hematology consult placed -Follow CBC #Acute hypokalemia -repleted, follow BMP #HTN- reasonably uncontrolled -continue home meds. Add lisinopril 10mg daily DVT prophylaxis- SCPs Full code Attending- Dr. stuart Time Spent With Patient Time: Total time managing care of this patient today ____ minutes. Quality Stroke Does the patient have a stroke diagnosis?: No VTE Prior VTE?: No VTE Risk Level:: Medical - moderate - high VTE Device Contraindication: N/A - Device Ordered VTE Drug Contraindication: Treatment Not Indicated
[2022-11-16 10:45] LABS: Band Neutrophils Percent 6 % (3-5); Lymphocytes Absolute Manual 0.9 X10*3/uL (1.2-4.9); Lymphocytes Percent Manual 2 % (20-40); Monocytes Absolute Manual 0.9 X10*3/uL (0.1-1.2); Monocytes Percent Manual 2 % (2-11); Neutrophils Absolute Manual 42.3 X10*3/uL (2.0-8.3); Neutrophils Percent Manual 90 % (45-73)
[2022-11-16 10:47] LABS: Platelet Estimate DECREASED (NORMAL)
[2022-11-16 10:48] LABS: Large Platelet PRESENT; Platelet Morphology Comment NOTED
[2022-11-16 10:50] LABS: Burr Cells 2+ (3-5) /OIF
[2022-11-16 10:51] LABS: Macrocytosis 1+ (5-14) /OIF; RBC Morphology NOTED
[2022-11-16] MEDS: lisinopriL 10 MG TABLET PO (10:59)
[2022-11-16] MEDS: Potassium Chloride Packet 20 MEQ PACKET 40 MEQ PO ×2 (11:00→17:56)
[2022-11-16 13:54] LABS: Iron 12 mcg/dL (30-160); Percent Iron Saturation 6 % (15-50); Total Iron Binding Capacity 209 mcg/dL (228-428); Unsaturated Iron Binding 197 ug/dL
[2022-11-16 14:14] LABS: Ferritin 379 ng/mL (10-250)
[2022-11-16 15:20] VITALS: BP 141/66; PULSE 72; RESP 18; TEMP 36.6; O2SAT 95
[2022-11-16] MEDS: Morphine Sulfate 2 MG/ML CARTRIDGE IVPUSH (15:54)
[2022-11-16 17:03] LABS: PLT CLUMP 1
[2022-11-16 17:05] LABS: Hematocrit 31.5 % (37.0-47.0); Hemoglobin 10.5 g/dl (12.0-16.0); Mean Corpuscular HGB Conc 33.3 g/dl (31.0-35.0); Mean Corpuscular Volume 92.9 fL (80.0-98.0); NRBC Pct Auto 0.1 /100WBC (0.0-0.2); Red Blood Count 3.39 X10*6/uL (4.20-5.50); Red Cell Distribution Width 17.1 % (11.0-16.0)
[2022-11-16 17:19] LABS: PLT ABN DIST 1
[2022-11-16 17:39] LABS: Alanine Aminotransferase 13 U/L (0-31); Albumin Level 3.5 g/dL (3.5-5.0); Alkaline Phosphatase 64 U/L (39-117); Anion Gap 16 (12-20); Aspartate Amino Transferase 23 U/L (5-31); Blood Urea Nitrogen 14 mg/dL (9-16); Calcium 9.2 mg/dL (8.4-10.2); Carbon Dioxide 23 mmol/L (22-29); Chloride 99 mmol/L (96-108); Creatinine Clr Calc Pharmacy 51.2; Estimated Glomerular Filt Rate > 60; Glucose Random 51 mg/dL (60-115); Lipase 11 U/L (8-78); Potassium 2.8 mmol/L (3.3-5.1); Sodium 135 mmol/L (135-145); Total Protein 6.6 g/dL (6.5-8.0)
[2022-11-16] MEDS: Dextrose 50 % 25 GM/50 ML SYRINGE IVPUSH (17:55)
[2022-11-16] MEDS: Lactated Ringers 1,000 ML 100 ML IVCONT (17:57)
[2022-11-16] MEDS: Azithromycin 500 MG in 0.9 % Sodium Chloride 250 ML 125 MG IV (17:58)
[2022-11-16 18:04] LABS: Band Neutrophils Percent 19 % (3-5); Lymphocytes Percent Manual 2 % (20-40); Metamyelocytes Percent 2 %; Monocytes Absolute Manual 2.5 X10*3/uL (0.1-1.2); Monocytes Percent Manual 5 % (2-11); Neutrophils Percent Manual 72 % (45-73); RBC Morphology NOTED
[2022-11-16 18:05] LABS: CDiff Gene PCR NEGATIVE (Negative)
[2022-11-16 18:05] LABS: Large Platelet PRESENT; Macrocytosis 1+ (5-14) /OIF; Platelet Estimate DECREASED (NORMAL); Platelet Morphology Comment NOTED; Polychromasia 1+ (0-2) /OIF
[2022-11-16 18:13] LABS: Platelet Count 104 X10*3/uL (160-400)
[2022-11-16 18:19] LABS: Glucose, Whole Blood 279 mg/dL (60-115)
[2022-11-16 19:43] VITALS: BP 169/75; PULSE 79; RESP 16; TEMP 36.3; O2SAT 92
[2022-11-16 19:47] LABS: Glucose, Whole Blood 209 mg/dL (60-115)
[2022-11-16] MEDS: traMADoL HCL 50 MG TABLET PO (20:18)
[2022-11-16 20:26] LABS: Glucose, Whole Blood 188 mg/dL (60-115)
[2022-11-16 22:43] LABS: White Blood Count 50.6 X10*3/uL (4.8-10.8)
[2022-11-17 02:50] VITALS: BP 157/68; PULSE 84; RESP 16; TEMP 36.3; O2SAT 96
[2022-11-17] MEDS: traMADoL HCL 50 MG TABLET PO ×2 (03:04→09:22)
[2022-11-17] MEDS: Lactated Ringers 1,000 ML 100 ML IVCONT ×2 (04:39→15:21)
[2022-11-17 07:10] VITALS: BP 159/70; PULSE 95; RESP 18; TEMP 37.4; O2SAT 93
[2022-11-17 07:17] LABS: Glucose, Whole Blood 149 mg/dL (60-115)
[2022-11-17] MEDS: lisinopriL 10 MG TABLET PO (08:34)
[2022-11-17] MEDS: 0.9 % Sodium Chloride Flush 3 ML SYRINGE IVFLUSH (08:34)
[2022-11-17] MEDS: Ferrous Sulfate 324 MG TABLET.DR PO (08:34)
[2022-11-17] MEDS: dilTIAZem HCL CD 180 MG CAP.ER.24H PO (08:34)
[2022-11-17 08:54] VITALS: TEMP 37.6
[2022-11-17 09:00] LABS: Hematocrit 30.1 % (37.0-47.0); Hemoglobin 10.2 g/dl (12.0-16.0); Mean Corpuscular HGB Conc 33.9 g/dl (31.0-35.0); Mean Corpuscular Hemoglobin 31.2 pg (27.0-33.0); NRBC Pct Auto 0.1 /100WBC (0.0-0.2); PLT CLUMP 1; Red Blood Count 3.27 X10*6/uL (4.20-5.50); Red Cell Distribution Width 17.1 % (11.0-16.0)
[2022-11-17 09:01] LABS: WBC ABN SCTR FOR CBC 1
[2022-11-17 09:06] LABS: Anion Gap 16 (12-20); Blood Urea Nitrogen 11 mg/dL (9-16); Calcium 9.2 mg/dL (8.4-10.2); Carbon Dioxide 23 mmol/L (22-29); Chloride 100 mmol/L (96-108); Creatinine Clr Calc Pharmacy 50.5; Estimated Glomerular Filt Rate > 60; Glucose Random 127 mg/dL (60-115); Sodium 136 mmol/L (135-145)
[2022-11-17 09:25] LABS: Band Neutrophils Percent 21 % (3-5); Lymphocytes Percent Manual 2 % (20-40); Metamyelocytes Percent 3 %; Monocytes Percent Manual 7 % (2-11); Neutrophils Percent Manual 67 % (45-73)
[2022-11-17 09:29] LABS: Acanthocytes 1+ (0-2) /OIF; Burr Cells 2+ (3-5) /OIF; Macrocytosis 1+ (5-14) /OIF; Ovalocytes 1+ (5-14) /OIF; Platelet Estimate SLIGHTLY DECREASED (NORMAL); Platelet Morphology Comment NORMAL; Polychromasia 1+ (0-2) /OIF; RBC Morphology NOTED; Tear Drop Cells 1+ (0-2) /OIF
[2022-11-17 09:36] LABS: Lymphocytes Absolute Manual 1.1 X10*3/uL (1.2-4.9); Metamyelocytes Absolute 1.7 X10*3/uL; Monocytes Absolute Manual 3.9 X10*3/uL (0.1-1.2); Neutrophils Absolute Manual 49.5 X10*3/uL (2.0-8.3); Platelet Count 104 X10*3/uL (160-400); White Blood Count 56.2 X10*3/uL (4.8-10.8)
[2022-11-17] MEDS: cefEPime HCl 2 GM in 0.9 % Sodium Chloride 50 ML IV (11:06)
[2022-11-17] MEDS: ondansetron HCL 4 MG/2 ML VIAL IVPUSH (11:16)
[2022-11-17 11:19] LABS: Glucose, Whole Blood 144 mg/dL (60-115)
[2022-11-17 11:43] LABS: Lactic Acid 1.2 mmol/L (0.5-2.0)
[2022-11-17] MEDS: iohexoL 350 MG/ML 100 ML INFUS..BTL IV (11:52)
[2022-11-17] MEDS: Potassium Chloride Packet 20 MEQ PACKET 40 MEQ PO (12:01)
--- NOTE | 2022-11-17 12:58 | P.PNIM_ITS ---
Subjective Subjective Date of Service: 11/17/22 Interval History: Seen in follow up for enteritis, po intolerance Interval history: Still feeling weak, now reporting localized tenderness RLQ. Had single episode diarrhea yesterday (cdiff neg) and several small watery bm's. +anorexia. Low grade temp 100.3, WBC continues to climb Review of Systems Review of Systems: Yes all other systems are reviewed and are negative Physical Exam Vital Signs: Vital Signs: Last Vital Signs Temp 99.6 F 11/17/22 08:54 Pulse 95 11/17/22 07:10 Resp 18 11/17/22 07:10 BP 159/70 H 11/17/22 07:10 Pulse Ox 93 11/17/22 07:10 O2 Del Method Room Air 11/17/22 07:10 BMI result Body Mass Index 26.3 Constitutional - Awake and Alert, No apparent distress Eyes - PERRLA, EOMI Cardiovascular - S1S2, RRR, No edema Respiratory - Normal lung expansion, Normal respiratory effort, No respiratory distress, CTA bilaterally Gastrointestinal - focal [place] ttp with guarding, no rebound. ND; +BS; - No CVA tenderness Extremities - no calf tenderness bilaterally, no swelling Skin - Warm/Dry Neurological - Alert & oriented x3 Psychological - Appropriate affect Objective Data Active Medications Acetaminophen (Acetaminophen 325 Mg Tablet) 650 mg PO Q6H PRN PRN Reason: Pain, Mild (Pain Scale 1-3) Last Admin: 11/16/22 08:57 Dose: 650 mg Documented By: MELISSA Al Hydroxide/Mg Hydroxide (Magnesium Hydrox/Alum Hydrox 30 Ml Oral.Susp) 30 ml PO Q4H PRN PRN Reason: Heartburn/Nausea Diltiazem HCl (Diltiazem Hcl Cd 180 Mg Cap.Er.24h) 180 mg PO DAILY BEREKET; Protocol Last Admin: 11/17/22 08:34 Dose: 180 mg Documented By: MEGHNA Comments: YAZ TORN Ferrous Sulfate (Ferrous Sulfate 324 Mg Tablet.) 324 mg PO DAILY BEREKET Last Admin: 11/17/22 08:34 Dose: 324 mg Documented By: MEGHNA Hydrochlorothiazide (Hydrochlorothiazide 25 Mg Tablet) 25 mg PO DAILY BEREKET; Protocol Last Admin: 11/16/22 08:57 Dose: 25 mg Documented By: MELISSA Lactated Ringer's (Lr) 1,000 mls @ 100 mls/hr IVCONT .Q10H COUNTS INCLUDE 234 BEDS AT THE [facility] Last Admin: 11/17/22 04:39 Dose: 100 mls/hr Documented By: ABDIRIZAK Cefepime HCl 2 gm/ Sodium (Chloride) 50 mls @ 100 mls/hr IV Q12H COUNTS INCLUDE 234 BEDS AT THE [facility] Last Infusion: 11/17/22 11:58 Dose: 0 mls/hr Documented By: MEGHNA Lisinopril (Lisinopril 10 Mg Tablet) 10 mg PO DAILY COUNTS INCLUDE 234 BEDS AT THE [facility]; Protocol Last Admin: 11/17/22 08:34 Dose: 10 mg Documented By: MEGHNA Ondansetron HCl (Ondansetron Hcl 4 Mg/2 Ml Vial) 4 mg IVPUSH Q8H PRN PRN Reason: Nausea and Vomiting Last Admin: 11/17/22 11:16 Dose: 4 mg Documented By: MEGHNA Pharmacy Consult (Consult Rx Perform Med Rec) 1 each MISCELLANE ONCE PRN PRN Reason: Consult order Sodium Chloride (0.9 % Sodium Chloride Flush 3 Ml Syringe) 3 ml IVFLUSH QSHIFT COUNTS INCLUDE 234 BEDS AT THE [facility] Last Admin: 11/17/22 08:34 Dose: 3 ml Documented By: MEGHNA Tramadol HCl (Tramadol Hcl 50 Mg Tablet) 50 mg PO Q6H PRN PRN Reason: Pain, Moderate(Pain Scale 4-6) Last Admin: 11/17/22 09:22 Dose: 50 mg Documented By: MEGHNA Labs 11/17/22 08:07 11/17/22 08:07 Labs: Laboratory Results - last 24 hr 11/16/22 11/16/22 11/16/22 06:00 06:08 15:08 MCV 92.9 MCH 31.0 MCHC 33.3 RDW 17.1 H Plt Count 104 L MPV Not Reportable Immature Gran % (Auto) Cancelled Neut % (Auto) Cancelled Lymph % (Auto) Cancelled [place] % (Auto) Cancelled Eos % (Auto) Cancelled Baso % (Auto) Cancelled Lymph # (Auto) Cancelled [place] # (Auto) Cancelled Eos # (Auto) Cancelled Baso # (Auto) Cancelled Abs Immat Gran (auto) Cancelled Absolute Neuts (auto) Cancelled Absolute Nucleated RBC 0.030 H Nucleated RBC % (auto) 0.1 Neutrophils % (Manual) 72 Band Neutrophils % 19 H Lymphocytes % (Manual) 2 L Monocytes % (Manual) 5 Metamyelocytes % 2 Abs Neuts (Manual) 46.0 H Lymphocytes # (Manual) 1.0 L Monocytes # (Manual) 2.5 H Metamyelocytes # 1.0 Platelet Estimate DECREASED Large Platelets PRESENT Plt Morphology Comment NOTED RBC Morphology NOTED Polychromasia 1+ (0-2) Macrocytosis 1+ (5-14) Tear Drop Cells Ovalocytes [place] Cells Acanthocytes (Spur) Anion Gap Estim Creat Clear Calc Estimated GFR POC Glucose Random Glucose Lactic Acid Calcium Iron 12 L TIBC 209 L % Saturation 6 L Unsat Iron Binding 197 Ferritin 379 H Total Bilirubin AST ALT Alkaline Phosphatase Total Protein Albumin Lipase Vitamin B12 Cancelled Folate Cancelled C. difficile Tox B Gene 11/16/22 11/16/22 11/16/22 15:08 15:37 18:14 MCV MCH MCHC RDW Plt Count MPV Immature Gran % (Auto) Neut % (Auto) Lymph % (Auto) [place] % (Auto) Eos % (Auto) Baso % (Auto) Lymph # (Auto) [place] # (Auto) Eos # (Auto) Baso # (Auto) Abs Immat Gran (auto) Absolute Neuts (auto) Absolute Nucleated RBC Nucleated RBC % (auto) Neutrophils % (Manual) Band Neutrophils % Lymphocytes % (Manual) Monocytes % (Manual) Metamyelocytes % Abs Neuts (Manual) Lymphocytes # (Manual) Monocytes # (Manual) Metamyelocytes # Platelet Estimate Large Platelets Plt Morphology Comment RBC Morphology Polychromasia Macrocytosis Tear Drop Cells Ovalocytes [place] Cells Acanthocytes (Spur) Anion Gap 16 Estim Creat Clear Calc 51.2 Estimated GFR > 60 POC Glucose 279 H Random Glucose 51 L* Lactic Acid Calcium 9.2 Iron TIBC % Saturation Unsat Iron Binding Ferritin Total Bilirubin 1.0 AST 23 ALT 13 Alkaline Phosphatase 64 Total Protein 6.6 Albumin 3.5 Lipase 11 Vitamin B12 Folate C. difficile Tox B Gene NEGATIVE 11/16/22 11/16/22 11/17/22 19:38 20:22 07:13 MCV MCH MCHC RDW Plt Count MPV Immature Gran % (Auto) Neut % (Auto) Lymph % (Auto) [place] % (Auto) Eos % (Auto) Baso % (Auto) Lymph # (Auto) [place] # (Auto) Eos # (Auto) Baso # (Auto) Abs Immat Gran (auto) Absolute Neuts (auto) Absolute Nucleated RBC Nucleated RBC % (auto) Neutrophils % (Manual) Band Neutrophils % Lymphocytes % (Manual) Monocytes % (Manual) Metamyelocytes % Abs Neuts (Manual) Lymphocytes # (Manual) Monocytes # (Manual) Metamyelocytes # Platelet Estimate Large Platelets Plt Morphology Comment RBC Morphology Polychromasia Macrocytosis Tear Drop Cells Ovalocytes [place] Cells Acanthocytes (Spur) Anion Gap Estim Creat Clear Calc Estimated GFR POC Glucose 209 H 188 H 149 H Random Glucose Lactic Acid Calcium Iron TIBC % Saturation Unsat Iron Binding Ferritin Total Bilirubin AST ALT Alkaline Phosphatase Total Protein Albumin Lipase Vitamin B12 Folate C. difficile Tox B Gene 11/17/22 11/17/22 11/17/22 08:07 08:07 11:02 MCV 92.0 MCH 31.2 MCHC 33.9 RDW 17.1 H Plt Count 104 L MPV Not Reportable Immature Gran % (Auto) Cancelled Neut % (Auto) Cancelled Lymph % (Auto) Cancelled [place] % (Auto) Cancelled Eos % (Auto) Cancelled Baso % (Auto) Cancelled Lymph # (Auto) Cancelled [place] # (Auto) Cancelled Eos # (Auto) Cancelled Baso # (Auto) Cancelled Abs Immat Gran (auto) Cancelled Absolute Neuts (auto) Cancelled Absolute Nucleated RBC 0.030 H Nucleated RBC % (auto) 0.1 Neutrophils % (Manual) 67 Band Neutrophils % 21 H Lymphocytes % (Manual) 2 L Monocytes % (Manual) 7 Metamyelocytes % 3 Abs Neuts (Manual) 49.5 H Lymphocytes # (Manual) 1.1 L Monocytes # (Manual) 3.9 H Metamyelocytes # 1.7 Platelet Estimate SLIGHTLY DECREASED Large Platelets Plt Morphology Comment NORMAL RBC Morphology NOTED Polychromasia 1+ (0-2) Macrocytosis 1+ (5-14) Tear Drop Cells 1+ (0-2) Ovalocytes 1+ (5-14) [place] Cells 2+ (3-5) Acanthocytes (Spur) 1+ (0-2) Anion Gap 16 Estim Creat Clear Calc 50.5 Estimated GFR > 60 POC Glucose Random Glucose 127 H Lactic Acid 1.2 Calcium 9.2 Iron TIBC % Saturation Unsat Iron Binding Ferritin Total Bilirubin AST ALT Alkaline Phosphatase Total Protein Albumin Lipase Vitamin B12 Folate C. difficile Tox B Gene 11/17/22 11:15 MCV MCH MCHC RDW Plt Count MPV Immature Gran % (Auto) Neut % (Auto) Lymph % (Auto) [place] % (Auto) Eos % (Auto) Baso % (Auto) Lymph # (Auto) [place] # (Auto) Eos # (Auto) Baso # (Auto) Abs Immat Gran (auto) Absolute Neuts (auto) Absolute Nucleated RBC Nucleated RBC % (auto) Neutrophils % (Manual) Band Neutrophils % Lymphocytes % (Manual) Monocytes % (Manual) Metamyelocytes % Abs Neuts (Manual) Lymphocytes # (Manual) Monocytes # (Manual) Metamyelocytes # Platelet Estimate Large Platelets Plt Morphology Comment RBC Morphology Polychromasia Macrocytosis Tear Drop Cells Ovalocytes [place] Cells Acanthocytes (Spur) Anion Gap Estim Creat Clear Calc Estimated GFR POC Glucose 144 H Random Glucose Lactic Acid Calcium Iron TIBC % Saturation Unsat Iron Binding Ferritin Total Bilirubin AST ALT Alkaline Phosphatase Total Protein Albumin Lipase Vitamin B12 Folate C. difficile Tox B Gene Microbiology Microbiology Results: Microbiology 11/15/22 08:36 Blood Culture - Preliminary Blood - Venous No growth after 48 hours. 11/15/22 08:36 Blood Culture - Preliminary Blood - Venous No growth after 48 hours. Assessment and Plan (1) Enteritis: Status: Acute (2) Leukocytosis: Status: Acute (3) Epigastric pain: Status: Acute Plan 82-year-old female with history of hypertension who? consumes 1 alcoholic beverage daily to be observed for acute gastritis/enteritis. #Abdominal pain- suspect infectious etiology with sepsis -Initially epigastric, now localized RLQ with guarding -Heme positive stool- no colonosocpy/EGD at this time per GI. Slight drop in Hgb 11.4 -->10.1 -Dc ppi, carafate per GI. Started on azithromycin -ondansetron prn, maalox prn -Diarrhea x 1 yesterday, vomiting resolved- CDiff negative. GI panel pending -11/17 worsening abd pain, localized to RLQ with guarding, low grade temp 100.3. WBC continues climbing, now 56. Abx changed to zosyn -CT abd/pelvis w/ contrast showing abnormal fairly long length of mid to distal small bowel with some possible mesenteric engorgement some minimal mesenteric fluid with possible filling deficits within the arterial vasculature, consider ischemia. 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 Likely has baseline normocytic anemia -GI consult- hold on scope for now -H/H above Transfusion threshold -Initiate ferrous sulfate #Daily etoh use -hepatic function normal -1 etoh kenrick daily in female appropriate #Acute on chronic thrombocytopenia- likely r/t infection -follow cbc #Acute hypokalemia -repleted, follow BMP #HTN- reasonably uncontrolled -continue home meds. Add lisinopril 10mg daily DVT prophylaxis- SCPs Full code Attending- Dr. stuart Pt requires inpt stay at least 2 midnigths for further management of sepsis with bandemia now with concern for ischemic bowel requiring ongoing IV abx, further investigation with CTA abd/pelvis and expert consultation Time Spent With Patient Time: Total time managing care of this patient today ____ minutes. Quality Stroke Does the patient have a stroke diagnosis?: No VTE Prior VTE?: No VTE Risk Level:: Medical - moderate - high VTE Device Contraindication: N/A - Device Ordered VTE Drug Contraindication: Treatment Not Indicated
--- NOTE | 2022-11-17 13:39 | MHC.CM.PN ---
No DC today per MD rounds. Patient scheduled for a CT today. WBC have increased. DP home self care. Patient has arranged for a friend to provide transport home.
--- NOTE | 2022-11-17 14:50 | P.CONGS_ITS ---
History of Present Illness Consult details Consult date: 11/17/22 Narrative: Patient is an elderly 82-year-old female presents here with approximately 5 day history of nausea, vomiting, periumbilical abdominal pain, diarrhea , with 1 episode of what she thought was bloody stool. Patient was admitted, underwent generous started measures on the medical service underwent GI consultation as well. She has a significant leukocytosis , and bandemia but her vital signs have been stable. She has never had such symptoms before. She has had relatively recent colonoscopy which he said aside from polyps was within normal limits. Chart was reviewed and patient evaluated Extensive workup including 2 CT scans which of the original showed gastroenteritis and 1 from today shows similar perhaps progressive findings. No evidence of free air or pneumatosis. [facility] Past Medical History Medical History HTN (hypertension) Social History Social History Household Members: None Household Members Other:: self Housing: House Do you presently have visiting nurse or other home services: No Alcohol intake: current Alcohol intake frequency: 0-2 drinks per day Alcohol type: beer, wine and hard liquor Patient Tobacco Use Status: Never used Tobacco Smoked in Last 30 Days: No Use of substances other than those prescribed or required for medical reasons: No Currently Displaying Signs/Symptoms of Drug Intoxication Withdrawal: No Have you been hit, kicked, punched, or otherwise hurt by someone within the past year? If so, by whom?: No Do you feel safe in your current relationship?: No Is there a partner from a previous relationship who is making you feel unsafe now?: No Are you made to feel afraid or neglected: No Religion Healthcare Practices: [employer] Advance Directives: No Advance Directives Information Provided: No Advance Directives on File: No Do you have thoughts of harming others: None Recently lost weight without trying: No How much weight loss: Not applicable Eating poorly because of decreased appetite: Yes Nutrition screen score: 1 Nutrition Risks: No Nutritional Risk Patient : No : No Poor oral hygiene: No service: No Meds Allergies Allergy/AdvReac Type Severity Reaction Status Date / Time amoxicillin Allergy Rash Verified 03/06/21 13:33 Active Medications: Current Medications Acetaminophen (Acetaminophen 325 Mg Tablet) 650 mg PO Q6H PRN PRN Reason: Pain, Mild (Pain Scale 1-3) Last Admin: 11/16/22 08:57 Dose: 650 mg Al Hydroxide/Mg Hydroxide (Magnesium Hydrox/Alum Hydrox 30 Ml Oral.Susp) 30 ml PO Q4H PRN PRN Reason: Heartburn/Nausea Diltiazem HCl (Diltiazem Hcl Cd 180 Mg Cap.Er.24h) 180 mg PO DAILY [facility]; Protocol Last Admin: 11/17/22 08:34 Dose: 180 mg Ferrous Sulfate (Ferrous Sulfate 324 Mg Tablet.Dr) 324 mg PO DAILY [facility] Last Admin: 11/17/22 08:34 Dose: 324 mg Hydrochlorothiazide (Hydrochlorothiazide 25 Mg Tablet) 25 mg PO DAILY [facility]; Protocol Last Admin: 11/16/22 08:57 Dose: 25 mg Lactated Ringer's (Lr) 1,000 mls @ 100 mls/hr IVCONT .Q10H [facility] Last Admin: 11/17/22 04:39 Dose: 100 mls/hr Cefepime HCl 2 gm/ Sodium (Chloride) 50 mls @ 100 mls/hr IV Q12H [facility] Last Infusion: 11/17/22 11:58 Dose: Infused Lisinopril (Lisinopril 10 Mg Tablet) 10 mg PO DAILY [facility]; Protocol Last Admin: 11/17/22 08:34 Dose: 10 mg Ondansetron HCl (Ondansetron Hcl 4 Mg/2 Ml Vial) 4 mg IVPUSH Q8H PRN PRN Reason: Nausea and Vomiting Last Admin: 11/17/22 11:16 Dose: 4 mg Pharmacy Consult (Consult Rx Perform Med Rec) 1 each MISCELLANE ONCE PRN PRN Reason: Consult order Sodium Chloride (0.9 % Sodium Chloride Flush 3 Ml Syringe) 3 ml IVFLUSH QSHIFT [facility] Last Admin: 11/17/22 08:34 Dose: 3 ml Tramadol HCl (Tramadol Hcl 50 Mg Tablet) 50 mg PO Q6H PRN PRN Reason: Pain, Moderate(Pain Scale 4-6) Last Admin: 11/17/22 09:22 Dose: 50 mg Home Medications Medication Instructions Recorded Confirmed Last Taken Type diltiazem HCl 180 mg capsule,24 180 mg PO DAILY 03/06/21 11/15/22 Unknown History hr,extended release hydrochlorothiazide 25 mg tablet 25 mg PO DAILY 03/06/21 11/15/22 Unknown History Physical Exam Vital Signs: Vital Signs: Last Vital Signs Temp 99.6 F 11/17/22 08:54 Pulse 95 11/17/22 07:10 Resp 18 11/17/22 07:10 BP 159/70 H 11/17/22 07:10 Pulse Ox 93 11/17/22 07:10 O2 Del Method Room Air 11/17/22 07:10 BMI result Body Mass Index 26.3 Const: Other: Vital signs stable. Elderly female resting in bed in no acute abdominal distress. GI: Other: Abdomen mildly corpulent, and minimally distended. Periumbilical and right- sided tenderness but without any evidence of guarding, rebound, or rigidity. Results Labs 11/17/22 08:07 11/17/22 08:07 Labs: Abnormal lab results 11/16/22 11/16/22 11/16/22 Range/Units 15:08 15:08 18:14 WBC 50.6 H* (4.8-10.8) X10*3/uL RBC 3.39 L (4.20-5.50) X10*6/uL Hgb 10.5 L (12.0-16.0) g/dl Hct 31.5 L (37.0-47.0) % RDW 17.1 H (11.0-16.0) % Plt Count 104 L (160-400) X10*3/uL Absolute Nucleated RBC 0.030 H (0.0-0.012) X10*3/uL Band Neutrophils % 19 H (3-5) % Lymphocytes % (Manual) 2 L (20-40) % Abs Neuts (Manual) 46.0 H (2.0-8.3) X10*3/uL Lymphocytes # (Manual) 1.0 L (1.2-4.9) X10*3/uL Monocytes # (Manual) 2.5 H (0.1-1.2) X10*3/uL Potassium 2.8 L (3.3-5.1) mmol/L POC Glucose 279 H (60-115) mg/dL Random Glucose 51 L* (60-115) mg/dL 11/16/22 11/16/22 11/17/22 Range/Units 19:38 20:22 07:13 WBC (4.8-10.8) X10*3/uL RBC (4.20-5.50) X10*6/uL Hgb (12.0-16.0) g/dl Hct (37.0-47.0) % RDW (11.0-16.0) % Plt Count (160-400) X10*3/uL Absolute Nucleated RBC (0.0-0.012) X10*3/uL Band Neutrophils % (3-5) % Lymphocytes % (Manual) (20-40) % Abs Neuts (Manual) (2.0-8.3) X10*3/uL Lymphocytes # (Manual) (1.2-4.9) X10*3/uL Monocytes # (Manual) (0.1-1.2) X10*3/uL Potassium (3.3-5.1) mmol/L POC Glucose 209 H 188 H 149 H (60-115) mg/dL Random Glucose (60-115) mg/dL 11/17/22 11/17/22 11/17/22 Range/Units 08:07 08:07 11:15 WBC 56.2 H* (4.8-10.8) X10*3/uL RBC 3.27 L (4.20-5.50) X10*6/uL Hgb 10.2 L (12.0-16.0) g/dl Hct 30.1 L (37.0-47.0) % RDW 17.1 H (11.0-16.0) % Plt Count 104 L (160-400) X10*3/uL Absolute Nucleated RBC 0.030 H (0.0-0.012) X10*3/uL Band Neutrophils % 21 H (3-5) % Lymphocytes % (Manual) 2 L (20-40) % Abs Neuts (Manual) 49.5 H (2.0-8.3) X10*3/uL Lymphocytes # (Manual) 1.1 L (1.2-4.9) X10*3/uL Monocytes # (Manual) 3.9 H (0.1-1.2) X10*3/uL Potassium 3.0 L (3.3-5.1) mmol/L POC Glucose 144 H (60-115) mg/dL Random Glucose 127 H (60-115) mg/dL Short CBC 11/16/22 11/17/22 Range/Units 15:08 08:07 WBC 50.6 H* 56.2 H* (4.8-10.8) X10*3/uL Hgb 10.5 L 10.2 L (12.0-16.0) g/dl Hct 31.5 L 30.1 L (37.0-47.0) % Plt Count 104 L 104 L (160-400) X10*3/uL BMP 11/16/22 11/17/22 15:08 08:07 Sodium 135 136 Potassium 2.8 L 3.0 L Chloride 99 100 Carbon Dioxide 23 23 BUN 14 11 Creatinine 0.68 0.69 Calcium 9.2 9.2 Liver Function 11/16/22 Range/Units 15:08 Total Bilirubin 1.0 (0.0-1.0) mg/dL AST 23 (5-31) U/L ALT 13 (0-31) U/L Alkaline Phosphatase 64 (39-117) U/L Albumin 3.5 (3.5-5.0) g/dL Urine 11/15/22 Range/Units 12:29 Urine Color Yellow Urine Appearance Clear Urine pH 6.0 (5.0-9.0) Ur Specific [place] >= 1.030 H (1.005-1.025) Urine Protein Trace (Neg-Trace) mg/dL Urine Glucose (UA) 250 H (Negative) mg/dL All other labs normal. Assessment and Plan (1) Enteritis: Status: Acute (2) Leukocytosis: Status: Acute Plan Patient id is at present clinically stable aside from marked leukocytosis, and no evidence of an acute abdomen on exam. Differential diagnosis would include significant gastroenteritis or perhaps ischemic colitis. Consideration for reconsulting GI . At present, no acute surgical issues but will follow patient and direct further therapy based on patient's clinical course and exam. Continue restorative measures including IV hydration, serial exams and labs. Will follow-up. Time Spent With Patient Time: Total time managing care of this patient today ____ minutes. Procedures Date of Service Date of Service: 11/17/22
[2022-11-17 15:07] VITALS: BP 138/61; PULSE 95; RESP 18; TEMP 37.6; O2SAT 92
[2022-11-17 16:01] LABS: Glucose, Whole Blood 159 mg/dL (60-115)
[2022-11-17] MEDS: 0.9 % Sodium Chloride 1,000 ML 999 ML IV (16:02)
--- NOTE | 2022-11-17 16:42 | SUR.OPER ---
refuses sequentials,risks explained to patient,activity encouraged
[2022-11-17] MEDS: iohexoL 350 MG/ML 100 ML INFUS..BTL 85 ML IV (17:03)
--- NOTE | 2022-11-17 17:26 | PC.NURSE ---
ok for patient to have ice chips and small sips of clear per GENO Smyth
[2022-11-17 19:47] VITALS: BP 143/66; PULSE 97; RESP 18; TEMP 37.8; O2SAT 92
[2022-11-17] MEDS: Acetaminophen 325 MG TABLET 650 MG PO (19:57)
--- NOTE | 2022-11-17 20:03 | PM.EVENT ---
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 Spoke to Dr. Marti who asked to consult vascular surgery. Spoke to Dr. Sánchez, who asked pt to be transferred to outside facility and initiate IV heparin. Spoke to [facility]. Pt was accepted by Dr Mireles, Sx and Dr Florez, Vascular Sx. Pt to be transferred to [facility] for higher level of care. Time Spent With Patient Time: Total time managing care of this patient today ____ minutes.
[2022-11-17 20:06] LABS: Glucose, Whole Blood 117 mg/dL (60-115)
[2022-11-17 21:25] LABS: Hematocrit 29.3 % (37.0-47.0); Hemoglobin 9.7 g/dl (12.0-16.0); Mean Corpuscular HGB Conc 33.1 g/dl (31.0-35.0); Mean Corpuscular Hemoglobin 32.1 pg (27.0-33.0); NRBC Pct Auto 0.1 /100WBC (0.0-0.2); PLT CLUMP 1; Red Blood Count 3.02 X10*6/uL (4.20-5.50); Red Cell Distribution Width 17.6 % (11.0-16.0)
[2022-11-17 21:27] VITALS: BMI 28.5
[2022-11-17 21:27] LABS: PLT ABN DIST 1
[2022-11-17 21:28] LABS: Platelet Count 122 X10*3/uL (160-400)
[2022-11-17 21:36] LABS: White Blood Count 54.7 X10*3/uL (4.8-10.8)
[2022-11-17 21:40] VITALS: TEMP 37.1
[2022-11-17] MEDS: Heparin Sodium,Porcine 5,000 UNIT/ML VIAL 5300 UNIT IVPUSH (21:49)
[2022-11-17 21:51] LABS: INTERNATIONAL NORM RATIO 1.3 (0.9-1.1); Prothrombin Time 15.3 SEC (10.0-13.1)
[2022-11-17 22:03] LABS: PTT Heparin Drip 22.7 SEC (53-77.9)
[2022-11-17] MEDS: Heparin Sodium,Porcine/1/2NS 25,000 UNIT/250 ML IV.SOLN 9.27 UNIT IVCONT (22:07)
[2022-11-17] MEDS: Piperacillin Sodium/Tazobactam 4.5 GM in 0.9 % Sodium Chloride 100 ML IV (22:29)
--- NOTE | 2022-11-17 22:30 | PM.EVENT ---
Event Note Date of Service: 11/17/22 Event Note: Patient understands and agrees to being trasnferred to [facility] Time Spent With Patient Time: Total time managing care of this patient today ____ minutes.
--- NOTE | 2022-11-17 22:55 | PC.NURSE ---
Radiology notified of need to put all patients tests on CD and also fax reports to [facility] at [phone]
--- NOTE | 2022-11-18 00:22 | PC.NURSE ---
patient was transferred to [facility] via ambulance,report was given to ED RN ,notified her of Heparin drip infusing at 14 units /kg/hr and need for ptt-HD at 0405
--- NOTE | 2022-11-18 21:19 | PM.DS ---
DS: Providers Provider Date of Service: 11/18/22 Date of admission: 11/16/22 15:02 Date of discharge: 11/18/22 Primary care physician: Carleen Samson MD Consults: 11/15/22 12:14 Consult to Gastroenterology Routine Consulting Provider: Nj Callahan Reason for consultation: alcoholic gastritis, heme pos stool 11/16/22 07:15 Consult to Hematology / Oncology Routine Consulting Provider: Afia Harris Reason for consultation: significant leukocytosis 11/17/22 13:56 Consult to General Surgery Stat Consulting Provider: [facility] [place] [facility] Reason for consultation: ?bowel ischemia DS: Diagnosis Discharge Diagnosis (1) Enteritis: Status: Acute (2) Leukocytosis: Status: Acute DS: Summary Hospital Course Hospital Course: Chief Complaint: n/v/d, epigastric pain ?82-year-old female with history of hypertension who? consumes 1 alcoholic beverage daily presents to the ED for evaluation of epigastric pain, nausea, vomiting, diarrhea.? She states on Tuesday after eating salad and a sandwich, developed nonbloody emesis and nausea with epigastric pain.? The epigastric pain has been constant with intermittent nausea and occasional vomiting.? Yesterday also developed? several episodes of diarrhea.? She did notice bright red blood per rectum x1 and a single episode of dark stool but states she did take Pepto-Bismol.? She has not been able to tolerate p.o. due to anorexia.? She has not had any further episodes of vomiting and diarrhea today but still feels unwell with nonradiating epigastric pain.? She reports only occasional NSAID use and consumes 1 hard alcoholic beverage on a daily basis.? No smoking or illicit drug use.? On arrival, vital signs stable.? Leukocytosis of 22.8 with bandemia of 15%.? She does have a normocytic anemia with H/ H 11.4/32.8%, MCV 90 0.6% baseline unknown.? Renal function normal, electrolyte levels normal except for mild hyponatremia 134.? Hepatic function normal.? Lipase 7.? Urinalysis with trace ketones, slight glucose, and elevated specific gravity.? No leukocytes, nitrites, blood.? Stool occult blood is positive.? KUB? Unremarkable.? CT abdomen /pelvis is negative for any bowel obstruction, evidence of GI bleed but does show mildly thickened wall of the ileum most likely due to enteritis.? In the ED, received IV ceftriaxone, fentanyl, ondansetron, 2 L IV NS. Hospital course: Pt admitted for epigastric pain thought to be associated with enteritis, possibly food poisoning. Symptoms of n/v/d had resolved on admission. WBC doubled to 44.1. She was started on azithromycin to treat suspected enteritis. She was able to provide a stool sample negative for CDiff. Anorexia persisted and she was given LR. WBC continued to elevated and given no clear infectious source, hematology was consulted. Given predominantly neutrophilic leukocytosis with mature neutrophils With some left shift and toxic granulations, with mild normocytic anemia and thrombocytopenia, suspected to be blue commode reaction to current infection. Iron and TIBC were low as was % saturation. She was started on ferrous sulfate. WBC continued to elevate to 54.7. She did experience persistent hypokalemia and HCTZ was held on admission, potassium was replated. On day 3, did develop localized RLQ pain with some guarding. Antibiotics broadened at this time. Ct abd/pelvis with contrast concerning for possible ischemia with long length of mid-distal small bowel with some possible mesenteric engorgement and come minimal mesenteric fluid. Follow up CTA abdomen/ pelvis showing adherent filling defect in the aorta just below the level of the celiac at the level of the SMA. SMA proximally patent but embolus present 6 cm beyond the origin of the SMA, obstructing flow to the small bowel loops in the right lower quadrant/ right abdomen. Small bowel in the right lower quadrant was dilated and thick walled worrisome for ischemic bowel. [employer] consulted thoracic surgery recommending consult to vascular surgery. Vascular surgery recommended initiating heparin GTT per protocol and transferred to tertiary care facility for further management. [employer] Operator placed call to [facility] who accepted patient and was transferred via EMS. #Abdominal pain- suspect infectious etiology with sepsis -Initially epigastric, now localized RLQ with guarding -Heme positive stool- no colonosocpy/EGD at this time per GI. Slight drop in Hgb 11.4 -->10.1 -Dc ppi, carafate per GI. Started on azithromycin -ondansetron prn, maalox prn -Diarrhea x 1 yesterday, vomiting resolved- CDiff negative. GI panel pending -11/17 worsening abd pain, localized to RLQ with guarding, low grade temp 100.3. WBC continues climbing, now 56. Abx changed to zosyn -CT abd/pelvis w/ contrast showing abnormal fairly long length of mid to distal small bowel with some possible mesenteric engorgement some minimal mesenteric fluid with possible filling deficits within the arterial vasculature, consider ischemia.? Recommend CTA, otherwise consider enteritis -General surgery- at time of exam, no surgical intervention recommended. -GI input appreciated -Lactic acid and blood cultures reordered -Pt kept NPO, on LR -Follow up CTA abd/pelvis showed SMA embolism and is worrisome for bowel ischemia. Starte don heparin drip and recommended transfer, accepted to [facility] #iron defiency anemia- chronicity unknown -Likely has baseline normocytic anemia -GI consult- hold on scope for now -H/H above Transfusion threshold -Initiate ferrous sulfate #Daily etoh use -hepatic function normal -1 etoh kenrick daily in female appropriate #Acute on chronic thrombocytopenia- likely r/t infection -follow cbc #Acute hypokalemia -repleted, follow BMP. Hold hctz #HTN- reasonably uncontrolled -HCTZ held due to above. Add lisinopril 10mg daily Status at Discharge Overall status at discharge: patient is not back to baseline Time Spent with Patient Time attestation: Total time managing care of this patient today ____ minutes. Discharge coordination time: Greater than 30 minutes Quality: Safe Use of Opioids Does Pt have an Active Cancer Diagnosis on the Problem List?: No Quality: Stroke Does the patient have a stroke diagnosis?: No Physical Exam Vital Signs: Vital Signs: Last Vital Signs Temp 98.7 F 11/17/22 21:40 Pulse 97 11/17/22 19:47 Resp 18 11/17/22 19:47 BP 143/66 H 11/17/22 19:47 Pulse Ox 92 11/17/22 19:47 O2 Del Method Room Air 11/17/22 19:47 BMI result Body Mass Index 28.5 DS: Data Data Completed and Pending Labs on day of discharge: Laboratory Results - last 24 hr 11/17/22 11/17/22 21:17 21:17 WBC 54.7 H* RBC 3.02 L Hgb 9.7 L Hct 29.3 L MCV 97.0 D MCH 32.1 MCHC 33.1 RDW 17.6 H Plt Count 122 L MPV TNP Absolute Nucleated RBC 0.070 H Nucleated RBC % (auto) 0.1 PT 15.3 H INR 1.3 H aPTT Heparin Protocol 22.7 L Preliminary micro results at discharge 11/17/22 11:02 Blood Culture - Preliminary Blood - Venous No growth after 24 hours. 11/17/22 11:02 Blood Culture - Preliminary Blood - Venous No growth after 24 hours. 11/15/22 08:36 Blood Culture - Preliminary Blood - Venous No growth after 48 hours. 11/15/22 08:36 Blood Culture - Preliminary Blood - Venous No growth after 48 hours. 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 for higher level of care Health Concerns: SMA embolus with acute bowel ischemia Plan of Treatment: as per [facility] Assessment: as above Discharge Date/Time: 11/18/22 00:27
== END 2022-11-18 00:27 | disposition short-term general hospital (02) | DRG 391 ==
LOC: HO.ED 12:16 → HO.EDOVER 12:31 → HO.S3 17:02
PROVIDERS: Internal Medicine; Student in an Organized Health Care Education/Training Program; Admitting Provider Physician Assistant; Emergency Provider Student in an Organized Health Care Education/Training Program; PCP Internal Medicine; Visit Provider Physician Assistant
DX: A09 Infectious gastroenteritis and colitis, unspecified (principal); K55.051 Focal (segmental) acute (reversible) ischemia of intestine, part unspecified; K62.5 Hemorrhage of anus and rectum; D62 Acute posthemorrhagic anemia; I10 Essential (primary) hypertension; E86.0 Dehydration; D69.6 Thrombocytopenia, unspecified; E87.6 Hypokalemia; Z79.899 Other long term (current) drug therapy
CPT/HCPCS: 36415; 71045; 74018; 74174; 74177; 74178; 76705; 80048; 80053; 81003; 82272; 82728; 82947; 83540; 83605; 83690; 83735; 85007; 85025; 85027; 85610; 85730; 87040; 87493; 92950; 93005; 99221; 99285; J0456; J0692; J0696; J1643; J2270; J2405; J2543; J3010; Q9967

== ENCOUNTER 2022-12-29 06:11 | Outpatient (REF) | payer MEDICARE, SELFPAY ==
[2022-12-29 07:02] LABS: Anion Gap 14 (12-20); Blood Urea Nitrogen 6 mg/dL (9-16); Calcium 8.3 mg/dL (8.4-10.2); Carbon Dioxide 25 mmol/L (22-29); Chloride 100 mmol/L (96-108); Estimated Glomerular Filt Rate > 60; Glucose Random 101 mg/dL (60-115); Potassium 3.2 mmol/L (3.3-5.1); Sodium 136 mmol/L (135-145)
== END 2022-12-29 06:12 | disposition home or self-care (01) ==
LOC: HO.MMNH2L 06:11
PROVIDERS: Visit Provider Family Medicine
DX: E87.6 Hypokalemia (principal)
CPT/HCPCS: 36415; 80048

== ENCOUNTER 2022-12-30 13:06 | Outpatient (AMB) | payer MEDICARE, SELFPAY ==
--- NOTE | 2022-12-30 14:05 | A.OFFVIS_ITS ---
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 Intake Note: New patient visit after recent ED visit and admission at [facility]. Silk Screen Cutter Required: No Accompanied by: Friend Allergies amoxicillin Allergy (Verified 12/30/22 14:12) Rash lactose Adverse Reaction (Severe, Verified 12/30/22 14:12) upset stomach Medication List - Last Reconciled 12/30/22 by Hernesto Dior MD acetaminophen 325 mg PO QID PRN alum-mag hydroxide-simeth 200-200-20 mg/5 mL (Cristel-Lanta) 5 mL PO Q3H PRN apixaban (Eliquis) 5 mg PO BID atorvastatin 40 mg PO DAILY bisacodyl (Dulcolax (bisacodyl)) 10 mg MN DAILY PRN diltiazem HCl 30 mg PO Q6H lactase 9,000 units PO QID PRN Lactobacillus acidophilus (Acidophilus capsule) 10 mg PO DAILY lidocaine 4% 1 patch topical DAILY PRN magnesium hydroxide (Milk of Magnesia) 30 mL PO Q4-6H PRN omeprazole 20 mg PO DAILY potassium chloride ER 20 mEq PO DAILY tramadol 25 mg PO TID PRN HPI HPI Comments History of Present Illness Details Jennifer is here for consultation regarding cardiac source of embolism. Records reviewed. She was recently admitted for gastroenteritis type symptoms. 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 This led to bowel ischemia and it appears that she got transferred to [facility] where she went surgical procedures and then eventually discharged. Patient states that she had atrial fibrillation diagnosis around 2017. She has been on diltiazem. Initially she took Eliquis for few months but in 2018 was apparently stopped and patient states that it was due to the fact that she had no further atrial fibrillation. Actual details are not very clear. Any case, after current hospitalization she has been put back on Eliquis. She is generally okay but just seems tired and fatigued. Deconditioned. However, no clear-cut cardiac symptoms like angina. No previous history of any coronary disease, myocardial infarction or cardiomyopathy. PFSH Medical History (Updated 12/30/22 @ 14:37 by Hernesto Dior MD) Embolus of superior mesenteric artery HTN (hypertension) PAF (paroxysmal atrial fibrillation) Surgical History (Updated 12/30/22 @ 14:13 by AWAIS Lloyd) History of intestinal surgery History of rotator cuff surgery History of tonsillectomy Family History (Updated 12/30/22 @ 14:13 by AWAIS Lloyd) Father Cancer Mother Lung cancer Social History (Updated 12/30/22 @ 14:13 by AWAIS Lloyd) Household Members: None Household Members Other:: self Housing: House Do you presently have visiting nurse or other home services: No Alcohol intake: current Alcohol intake frequency: a few times a month Alcohol type: beer, wine and hard liquor Patient Tobacco Use Status: Never used Tobacco service: No Review of Systems Const Denies chills, Denies daytime sleepiness, Denies fatigue, Denies fever(s), Denies frequent falls, Denies night sweats, Denies snoring, Denies weakness, Denies weight gain and Denies weight loss Eyes Denies loss of vision ENT Denies dizziness and Denies hearing loss Card Denies chest pain, Denies chest pain with activity, Denies syncope, Denies rapid heart rate, Denies edema, Denies claudication, Denies leg edema, Denies lightheadedness, Denies palpitations, Denies dyspnea, Denies dyspnea on exertion and Denies orthopnea Resp Denies cough, Denies excessive phlegm production, Denies dyspnea, Denies dyspnea on exertion, Denies snoring and Denies wheezing GI Denies abdominal pain, Denies hematochezia, Denies change in bowel habits, Denies change in stool character, Denies heartburn, Denies nausea and Denies vomiting Denies hematuria, Denies urinary frequency and Denies dysuria Musc Denies arthralgias, Denies muscle weakness, Denies numbness and Denies tingling Skin/Breast Denies nail changes and Denies rash Neuro Denies Abnormal speech present, Denies dizziness, Denies syncope, Denies frequent falls, Denies loss of vision, Denies memory loss, Denies numbness, Billy es tingling and Denies weakness Psych Denies depression and Denies memory loss Endo Denies fatigue and Denies palpitations Aller/Immun Denies wheezing Physical Exam Vital Signs: Last Vital Signs Pulse 98 12/30/22 14:06 BP 124/72 12/30/22 14:06 BMI result Body Mass Index 25.5 Const General: comfortable and no acute distress Orientation/consciousness: patient oriented x3 HEENT Other: Unremarkable Head: Yes normal to inspection Neck Neck: Yes normal visual inspection Chest Chest palpation & inspection: normal inspection of the chest Resp Auscultation: clear to auscultation bilaterally Cardio Palpation: normal PMI Heart sounds: S1 normal heart sound present, S2 normal heart sound present, no gallops, no murmurs and no rubs GI Palpation (GI): Soft to palpation Back/Spine/Pelvis Other: unremarkable Skin General skin exam: no rashes or lesions noted Neuro General: patient oriented x3 Speech: No Abnormal speech present Extrem General: Yes normal to inspection Psych Mental Status: mental status grossly normal Assessment & Plan Assessment & Plan (1) PAF (paroxysmal atrial fibrillation): Code(s): I48.0 - Paroxysmal atrial fibrillation (2) Embolus of superior mesenteric artery: Code(s): K55.059 - Acute (reversible) ischemia of intestine, part and extent unspecified Plan Recent EKG shows sinus rhythm at 79/Min; right bundle-branch block pattern. Left atrial enlargement. Echocardiogram from heart referral with LVEF of 76%. RV systolic function normal. No significant valvular issues and there was no cardiac source of embolism. Myocardial perfusion study from 2017 showed normal perfusion-at [facility]. Overall, history of paroxysmal atrial fibrillation with recent SMA embolus. Agree with starting anticoagulation. With regard to the Eliquis dosing, due to the recent embolus we can maintain 5 mg b.i.d.. Patient states she was on diltiazem CD 1 80 mg daily in the past. Now she is on 30 mg 4 times a day. We can simplify back to her usual home dose. Otherwise, we will get a 2 week Holter monitor for atrial fibrillation. Advised to cut back alcohol as she drinks regularly. Patient states she really does not have any family and gets help only from neighbors and friends. Discussed with neighbor came for appointment. Orders: Orders ECG 14 day holter monitor Today I48.0 - Paroxysmal atrial fibrillation Medications: New diltiazem HCl 180 mg PO DAILY 90 caps 3RF apixaban (Eliquis) 5 mg PO BID 90 days 180 tabs 3RF Coding Level of Care Code New Pt Level 4 (26273) Diagnoses PAF (paroxysmal atrial fibrillation) I48.0 Embolus of superior mesenteric artery K55.059
[2022-12-30 14:06] VITALS: BP 124/72; PULSE 98; BMI 25.5
== END 2022-12-30 14:47 | disposition home or self-care (01) ==
PROVIDERS: PCP Internal Medicine; Referring Provider Internal Medicine; Visit Provider Internal Medicine
DX: I48.0 Paroxysmal atrial fibrillation (principal); K55.059 Acute (reversible) ischemia of intestine, part and extent unspecified
CPT/HCPCS: 99214

== ENCOUNTER → 2022-12-30 13:06 | Outpatient (BNVA) | payer MEDICARE, SELFPAY | PROVIDERS: PCP Internal Medicine; Referring Provider Internal Medicine; Visit Provider Internal Medicine ==

== ENCOUNTER → 2023-01-05 13:07 | Outpatient (REF) | payer MEDICARE, SELFPAY ==
--- NOTE | 2023-01-05 13:10 | HM_ITS ---
Conclusion: 1. Patient was monitored for 14 days and 6 hours 2. Baseline was normal sinus rhythm with average heart rate of 84 beats per minute 3. Occasional PACs noted with total burden of 0.5% with 24 SVT event, fastest at 192 beats per minute and longest at 16 beats 4. No significant pauses noted greater than 2.5 seconds 5. Patient marked the counter 2 times without associated symptoms correlating with sinus rhythm MTDD
== END ==
LOC: HO.CARD 13:07
PROVIDERS: Visit Provider Internal Medicine
DX: I48.0 Paroxysmal atrial fibrillation (principal)
CPT/HCPCS: 93246

== ENCOUNTER → 2023-01-05 13:10 | Outpatient (BNV) | payer MEDICARE, SELFPAY | PROVIDERS: Visit Provider Internal Medicine Cardiovascular Disease | DX: I49.1 Atrial premature depolarization (principal) | CPT/HCPCS: 93248 ==

== ENCOUNTER 2023-03-29 14:30 | Outpatient (AMB) | payer MEDICARE, SELFPAY ==
--- NOTE | 2023-03-29 14:41 | A.OFFVIS_ITS ---
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 Intake Note: follow up Job Hand Required: No Accompanied by: Self / Same As Patient Allergies amoxicillin Allergy (Verified 03/29/23 14:44) Rash lactose Adverse Reaction (Severe, Verified 03/29/23 14:44) upset stomach Medication List - Last Reconciled 03/29/23 by Hernesto Dior MD alum-mag hydroxide-simeth 200-200-20 mg/5 mL (Cristel-Lanta) 5 mL PO Q3H PRN apixaban (Eliquis) 5 mg PO BID 90 days atorvastatin 40 mg PO DAILY diltiazem HCl 180 mg PO DAILY Lactobacillus acidophilus (Acidophilus capsule) 10 mg PO DAILY magnesium hydroxide (Milk of Magnesia) 30 mL PO Q4-6H PRN potassium chloride ER 20 mEq PO DAILY HPI HPI Comments History of Present Illness Details Jennifer returns for follow-up. Recently seen in consultation regarding history of atrial fibrillation as well as eccentric embolism. Recent records were reviewed. She was admitted for gastroenteritis type symptoms. 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 This led to bowel ischemia and it appears that she got transferred to [facility] where she went surgical procedures and then eventually discharged. Patient states that she had atrial fibrillation diagnosis around 2017. She has been on diltiazem. Initially she took Eliquis for few months but in 2018 was apparently stopped and patient states that it was due to the fact that she had no further atrial fibrillation. Actual details are not very clear. Any case, after current hospitalization she has been put back on Eliquis. Since last seen, overall feeling good. No specific cardiac complaints. She was drinking regularly in the past but states she has cut back. [facility] Medical History (Updated 12/30/22 @ 14:37 by Hernesto Dior MD) Embolus of superior mesenteric artery PAF (paroxysmal atrial fibrillation) HTN (hypertension) Surgical History History of tonsillectomy History of rotator cuff surgery History of intestinal surgery Family History Father Cancer Mother Lung cancer Social History Household Members: None Household Members Other:: self Housing: House Do you presently have visiting nurse or other home services: No Alcohol intake: current Alcohol intake frequency: a few times a month Alcohol type: beer, wine and hard liquor Patient Tobacco Use Status: Never used Tobacco service: No Review of Systems Const Denies weakness ENT Denies dizziness Card Denies chest pain, Denies chest pain with activity, Denies syncope, Denies rapid heart rate, Denies pedal edema, Denies edema, Denies leg edema, Denies lightheadedness, Denies palpitations, Denies dyspnea, Denies dyspnea on exertion and Denies orthopnea Resp Denies cough, Denies dyspnea and Denies dyspnea on exertion GI Denies hematochezia and Denies change in stool character Musc Denies abnormal gait, Denies muscle cramps, Denies muscle weakness, Denies numbness, Denies radiating pain into limb and Denies tingling Neuro Denies abnormal gait, Denies dizziness, Denies syncope, Denies numbness, Denies tingling and Denies weakness Endo Denies palpitations Physical Exam Vital Signs: Last Vital Signs Pulse 63 03/29/23 14:42 BP 120/60 03/29/23 14:42 BMI result Body Mass Index 24.8 Const General: comfortable and no acute distress Orientation/consciousness: patient oriented x3 HEENT Other: Unremarkable Head: Yes normal to inspection Neck Neck: Yes normal visual inspection Chest Chest palpation & inspection: normal inspection of the chest Resp Auscultation: clear to auscultation bilaterally Cardio Palpation: normal PMI Heart sounds: S1 normal heart sound present, S2 normal heart sound present, no gallops, no murmurs and no rubs GI Palpation (GI): Soft to palpation Back/Spine/Pelvis Other: unremarkable Skin General skin exam: no rashes or lesions noted Neuro General: patient oriented x3 Extrem General: Yes normal to inspection Psych Mental Status: mental status grossly normal Assessment & Plan Assessment & Plan (1) PAF (paroxysmal atrial fibrillation): Code(s): I48.0 - Paroxysmal atrial fibrillation (2) Embolus of superior mesenteric artery: Code(s): K55.059 - Acute (reversible) ischemia of intestine, part and extent unspecified Plan Recent EKG shows sinus rhythm at 79/Min; right bundle-branch block pattern. Left atrial enlargement. Echocardiogram from [facility] with LVEF of 76%. RV systolic function normal. No significant valvular issues and there was no cardiac source of embolism. Myocardial perfusion study from 2017 showed normal perfusion-at [facility]. Overall, history of paroxysmal atrial fibrillation with recent SMA embolus. Recommend long-term anticoagulation. In spite of low issue weight, okay to take the 5 mg b.i.d. dose due to recent embolic episode. Continue diltiazem CD without changes. Recent Holter is not showing any recurrent atrial fibrillation. She does have anemia on her labs and advised her that she should follow up on this with her own PCP. If necessary, may get referral to Hematology. Otherwise, cut back on alcohol use. We will see her in 1 year for follow-up. In the interim, she will call with concerns. Total time spent including review of data, counseling, documentation, coordination of care-31 minutes. Coding Level of Care Code Est Pt Level 4 (46994) Diagnoses PAF (paroxysmal atrial fibrillation) I48.0 Embolus of superior mesenteric artery K55.059
[2023-03-29 14:42] VITALS: BP 120/60; PULSE 63; BMI 24.8
== END 2023-03-29 14:59 | disposition home or self-care (01) ==
PROVIDERS: PCP Internal Medicine; Visit Provider Internal Medicine
DX: I48.0 Paroxysmal atrial fibrillation (principal); K55.059 Acute (reversible) ischemia of intestine, part and extent unspecified
CPT/HCPCS: 99214

== ENCOUNTER → 2023-03-29 14:30 | Outpatient (BNVA) | payer MEDICARE, SELFPAY | PROVIDERS: PCP Internal Medicine; Visit Provider Internal Medicine | DX: I48.0 Paroxysmal atrial fibrillation (principal); K55.059 Acute (reversible) ischemia of intestine, part and extent unspecified | CPT/HCPCS: 99212 ==

== ENCOUNTER 2023-09-14 09:47 | Outpatient (REF) | payer MEDICARE, SELFPAY ==
--- NOTE | ~2023-09-14 | MM_ITS ---
EXAMINATION: MM SCREENING DIGITAL BREAST TOMOSYNTHESIS, BILATERAL CLINICAL INFORMATION: Screening. Asymptomatic. COMPARISON: Mammography: This study is compared with prior exams dating back to 2019. TECHNIQUE: Digital breast tomosynthesis is performed in both the craniocaudal and mediolateral oblique views along with computer-aided detection (CAD). Synthesized 2D images are generated from the tomosynthesis. FINDINGS: There are scattered areas of fibroglandular density (ACR BI-RADS breast composition Category b). There are no significant masses, abnormal calcifications, or other abnormalities. There is a tissue marker in the deep third of the right breast, in the posterior nipple line. This indicates site of prior benign percutaneous biopsy. MM/MM tomosynthesis screening BI IMPRESSION: No mammographic evidence of malignancy. ASSESSMENT: BI-RADS BI-RADS 2 - Benign Findings RECOMMENDATION: Routine annual mammography screening. 1 year F/U This examination should not preclude the clinical evaluation of a suspicious palpable abnormality. This patient's information was entered into a reminder system with a target due date for their next mammogram.
== END 2023-09-14 09:48 | disposition home or self-care (01) ==
LOC: HO.MAMMO 09:47
PROVIDERS: PCP Internal Medicine; Visit Provider Internal Medicine
DX: Z12.31 Encounter for screening mammogram for malignant neoplasm of breast (principal)
CPT/HCPCS: 77063; 77067

== ENCOUNTER → 2023-09-14 10:00 | Outpatient (BNV) | payer MEDICARE, SELFPAY | PROVIDERS: PCP Internal Medicine; Visit Provider Radiology Diagnostic Radiology | DX: Z12.31 Encounter for screening mammogram for malignant neoplasm of breast (principal) | CPT/HCPCS: 77063; 77067 ==

== ENCOUNTER 2024-04-16 13:42 | Outpatient (REF) | payer MEDICARE, SELFPAY ==
[2024-04-16 15:03] LABS: Hemoglobin 10.1 g/dl (12.0-16.0); Mean Corpuscular HGB Conc 32.6 g/dl (31.0-35.0); Mean Corpuscular Hemoglobin 30.7 pg (27.0-33.0); Mean Corpuscular Volume 94.2 fL (80.0-98.0); PLT CLUMP 1; Red Blood Count 3.29 X10*6/uL (4.20-5.50); Red Cell Distribution Width 17.2 % (11.0-16.0)
[2024-04-16 15:04] LABS: WBC ABN SCTR FOR CBC 1
[2024-04-16 15:21] LABS: Platelet Count 177 X10*3/uL (160-400); White Blood Count 4.7 X10*3/uL (4.8-10.8)
[2024-04-16 15:31] LABS: Alanine Aminotransferase 25 U/L (0-31); Albumin Level 3.7 g/dL (3.5-5.0); Alkaline Phosphatase 60 U/L (39-117); Anion Gap 8 (12-20); Aspartate Amino Transferase 25 U/L (5-31); Bilirubin Total 0.7 mg/dL (0.0-1.0); Blood Urea Nitrogen 12 mg/dL (9-16); Calcium 8.9 mg/dL (8.4-10.2); Carbon Dioxide 27 mmol/L (22-29); Chloride 109 mmol/L (96-108); Estimated Glomerular Filt Rate > 60; Glucose Random 93 mg/dL (60-115); Potassium 4.3 mmol/L (3.3-5.1); Sodium 140 mmol/L (135-145); Total Protein 6.5 g/dL (6.5-8.0)
== END 2024-04-16 13:43 | disposition home or self-care (01) ==
LOC: HO.LAB 13:42
PROVIDERS: PCP Internal Medicine; Visit Provider Internal Medicine
DX: I48.0 Paroxysmal atrial fibrillation (principal); K55.059 Acute (reversible) ischemia of intestine, part and extent unspecified; Z79.01 Long term (current) use of anticoagulants
CPT/HCPCS: 36415; 80053; 85027; 93005; 99212

== ENCOUNTER 2024-04-16 13:42 | Outpatient (AMB) | payer MEDICARE, SELFPAY ==
--- NOTE | 2024-04-16 13:56 | A.OFFVIS_ITS ---
Vital Signs 04/16/24 13:57 Height 4 ft 11 in Weight 121 lb 4.068 oz BMI 24.5 BP 122/60 Blood Pressure Location Lt brachial Position Sitting Pulse 63 Pulse Source Monitor Intake Visit Reasons: 1 year fu Allergies amoxicillin Allergy (Verified 03/29/23 14:44) Rash lactose Adverse Reaction (Severe, Verified 03/29/23 14:44) upset stomach Medication List - Last Reconciled 04/16/24 by Hernesto Dior MD apixaban (Eliquis) 5 mg PO BID 90 days atorvastatin 40 mg PO DAILY diltiazem HCl CD 180 mg PO DAILY magnesium hydroxide (Milk of Magnesia) 30 mL PO Q4-6H potassium chloride ER 20 mEq PO DAILY HPI Comments Details: Jennifer returns for follow-up regarding atrial fibrillation. Records reviewed from 2022. She was admitted for gastroenteritis type symptoms. 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 This led to bowel ischemia and it appears that she got transferred to [facility] where she went surgical procedures and then eventually discharged. Patient states that she had atrial fibrillation diagnosis around 2017. She has been on diltiazem. Initially she took Eliquis for few months but in 2018 was apparently stopped and patient states that it was due to the fact that she had no further atrial fibrillation. Actual details are not very clear. Any case, after current hospitalization she has been put back on Eliquis. Since last seen, patient states she has lost lot of weight. From a cardiac standpoint itself no specific complaints. [facility] Medical History (Updated 12/30/22 @ 14:37 by Hernesto Dior MD) Embolus of superior mesenteric artery PAF (paroxysmal atrial fibrillation) HTN (hypertension) Surgical History History of tonsillectomy History of rotator cuff surgery History of intestinal surgery Family History Father Cancer Mother Lung cancer Social History Household Members: None Household Members Other:: self Housing: House Do you presently have visiting nurse or other home services: No Alcohol intake: current Alcohol intake frequency: a few times a month Alcohol type: beer, wine and hard liquor Patient Tobacco Use Status: Never used Tobacco service: No Review of Systems Const Denies weakness ENT Denies dizziness Card Denies chest pain, Denies chest pain with activity, Denies syncope, Denies rapid heart rate, Denies pedal edema, Denies edema, Denies leg edema, Denies lightheadedness, Denies palpitations, Denies dyspnea, Denies dyspnea on exertion and Denies orthopnea Resp Denies cough, Denies dyspnea and Denies dyspnea on exertion GI Denies hematochezia and Denies change in stool character Musc Denies abnormal gait, Denies muscle cramps, Denies muscle weakness, Denies numbness, Denies radiating pain into limb and Denies tingling Neuro Denies abnormal gait, Denies dizziness, Denies syncope, Denies numbness, Denies tingling and Denies weakness Endo Denies palpitations Physical Exam Vital Signs: Last Vital Signs Pulse 63 04/16/24 13:57 BP 122/60 04/16/24 13:57 BMI result Body Mass Index 24.5 Const General: comfortable and no acute distress Orientation/consciousness: patient oriented x3 HEENT Other: Unremarkable Head: Yes normal to inspection Neck Neck: Yes normal visual inspection Chest Chest palpation & inspection: normal inspection of the chest Resp Auscultation: clear to auscultation bilaterally Cardio Palpation: normal PMI Heart sounds: S1 normal heart sound present, S2 normal heart sound present, no gallops, no murmurs and no rubs GI Palpation (GI): Soft to palpation Back/Spine/Pelvis Other: unremarkable Skin General skin exam: no rashes or lesions noted Neuro General: patient oriented x3 Extrem General: Yes normal to inspection Psych Mental Status: mental status grossly normal Office Procedures EKG Details: EKG with underlying sinus rhythm at 63/Min; leftward axis; right bundle-branch [place]. [id number], Complete Assessment & Plan Assessment & Plan (1) PAF (paroxysmal atrial fibrillation): Code(s): I48.0 - Paroxysmal atrial fibrillation Category: Medical (2) Embolus of superior mesenteric artery: Code(s): K55.059 - Acute (reversible) ischemia of intestine, part and extent unspecified Category: Medical Plan Cardiac studies summarize. EKG with underlying sinus rhythm and right bundle-branch block pattern. Echocardiogram from [facility] with LVEF of 76%. RV systolic function normal. No significant valvular issues and there was no cardiac source of embolism. Myocardial perfusion study from 2017 showed normal perfusion-at [facility]. Overall, history of paroxysmal atrial fibrillation with SMA embolus. She can continue long-term anticoagulation. She is in her 80s and has lost lot of weight. Hence we need to recheck her CBC/metabolic panel and decide on Eliquis dosing. Due to the embolic episode, she was maintained on 5 mg b.i.d. but possibly cut to 2.5 mg b.i.d.. Continue diltiazem CD without changes. Holter is not showing any recurrent atrial fibrillation. She has a history of alcohol excess but she states that she is not doing it as much these days. Relationship with atrial fibrillation discussed. Follow-up in 6 months. Advised to do the labs today. According to her, she had some blood counts done in [place] few months back and was told that hemoglobin was 12. However, we do not have those records. Total time spent including review of data, counseling, documentation, coordination of care-31 minutes. Orders: Orders Complete Blood Count no Diff Today I48.0 - Paroxysmal atrial fibrillation Comprehensive Met. Panel Today I48.0 - Paroxysmal atrial fibrillation ECG 7 day holter monitor 6 Months I48.0 - Paroxysmal atrial fibrillation Coding Level of Care Code Est Pt Level 4 (66865) Diagnoses PAF (paroxysmal atrial fibrillation) I48.0 Embolus of superior mesenteric artery K55.059 CPT Codes EKG - CPT: 56061-[id number], Complete ([id number])
[2024-04-16 13:57] VITALS: BP 122/60; PULSE 63; BMI 24.5
== END 2024-04-16 14:31 | disposition home or self-care (01) ==
PROVIDERS: PCP Internal Medicine; Visit Provider Internal Medicine
DX: I48.0 Paroxysmal atrial fibrillation (principal); K55.059 Acute (reversible) ischemia of intestine, part and extent unspecified
CPT/HCPCS: 93010; 99214

== ENCOUNTER 2024-05-10 09:26 | Outpatient (REF) | payer MEDICARE, SELFPAY ==
[2024-05-10 09:54] LABS: Mean Corpuscular HGB Conc 32.4 g/dl (31.0-35.0); Mean Corpuscular Hemoglobin 30.3 pg (27.0-33.0); Mean Corpuscular Volume 93.7 fL (80.0-98.0); PLT CLUMP 1; Red Blood Count 3.63 X10*6/uL (4.20-5.50); Red Cell Distribution Width 17.5 % (11.0-16.0)
[2024-05-10 09:58] LABS: WBC ABN SCTR FOR CBC 1
[2024-05-10 10:04] LABS: Cholesterol 76 mg/dL (<200); HDL Cholesterol 40 mg/dL (>40); Iron 104 mcg/dL (30-160); LDL Cholesterol Calculated 23 mg/dL (<100); Percent Iron Saturation 33 % (15-50); Total Iron Binding Capacity 319 mcg/dL (228-428); Triglycerides 65 mg/dL (<150); Unsaturated Iron Binding 215 ug/dL
[2024-05-10 10:21] LABS: Estimated Average Glucose 105 mg/dL; Hemoglobin A1C 97.1241 umol/L; Hemoglobin A1c % 5.3 % (<6.0); Thyroid Stimulating Hormone 1.81 uIU/mL (0.32-4.0); Total Hemoglobin (HGBA1C) 2781.9199 umol/L
[2024-05-10 11:27] LABS: Band Neutrophils Percent 2 % (3-5); Lymphocytes Percent Manual 55 % (20-40); Monocytes Percent Manual 8 % (2-11); Neutrophils Percent Manual 35 % (45-73)
[2024-05-10 11:31] LABS: RBC Morphology NOTED
[2024-05-10 11:32] LABS: Burr Cells 1+ (0-2) /OIF; Macrocytosis 1+ (5-14) /OIF; Platelet Estimate NORMAL (NORMAL); Platelet Morphology Comment NORMAL; Schistocytes 2+ (3-5) /OIF
[2024-05-10 11:33] LABS: Lymphocytes Absolute Manual 1.8 X10*3/uL (1.2-4.9); Monocytes Absolute Manual 0.3 X10*3/uL (0.1-1.2); Neutrophils Absolute Manual 1.2 X10*3/uL (2.0-8.3); Platelet Count 214 X10*3/uL (160-400); White Blood Count 3.3 X10*3/uL (4.8-10.8)
== END 2024-05-10 09:27 | disposition home or self-care (01) ==
LOC: HO.LAB 09:26
PROVIDERS: PCP Internal Medicine; Visit Provider Internal Medicine
DX: E78.00 Pure hypercholesterolemia, unspecified (principal); I10 Essential (primary) hypertension; E11.9 Type 2 diabetes mellitus without complications; R53.83 Other fatigue
CPT/HCPCS: 36415; 80061; 83036; 83540; 84439; 84443; 85007; 85025; 85027

== ENCOUNTER 2024-05-15 12:18 | Outpatient (REF) | payer MEDICARE, SELFPAY ==
--- NOTE | ~2024-05-15 | XR_ITS ---
EXAMINATION: XR SHOULDER, RIGHT. XR CLAVICLE, RIGHT. CLINICAL INFORMATION: Right shoulder and clavicle pain COMPARISON: None. TECHNIQUE: 2 views of the right clavicle. 4 views of the right shoulder. FINDINGS: No acute fracture or malalignment. Moderate acromioclavicular osteoarthritis. Mild glenohumeral osteoarthritis. Supraspinatus calcific tendinitis. XR/XR clavicle RT IMPRESSION: No acute osseous abnormality. Moderate acromioclavicular and mild glenohumeral osteoarthritis. Supraspinatus calcific tendinitis. Electronically signed by: Rupert Buenrostro MD 05/15/2024 04:00 PM ZIG[facility]
--- NOTE | ~2024-05-15 | XR_ITS ---
EXAMINATION: XR SHOULDER, RIGHT. XR CLAVICLE, RIGHT. CLINICAL INFORMATION: Right shoulder and clavicle pain COMPARISON: None. TECHNIQUE: 2 views of the right clavicle. 4 views of the right shoulder. FINDINGS: No acute fracture or malalignment. Moderate acromioclavicular osteoarthritis. Mild glenohumeral osteoarthritis. Supraspinatus calcific tendinitis. XR/XR shoulder RT min 2V IMPRESSION: No acute osseous abnormality. Moderate acromioclavicular and mild glenohumeral osteoarthritis. Supraspinatus calcific tendinitis. Electronically signed by: Rupert Buenrostro MD 05/15/2024 04:00 PM [facility] [place]
--- OUTSIDE RECORDS SUMMARY | 2024-05-15 12:22 | XMS_ITS | Patient Health Record ---
Author Organization [facility] Address [address] [place] [address] Care Team Providers Care Supply Requirements Officer Name Role Phone Chapin LEVY, Carleen Primary Care Provider Unav stacie KingRubi simon Unavailable [phone] Allergies Allergen (clinical drug ingredient) Drug/Non Drug Allergy documented on EMR Reaction Allergy Type Onset Date Status amoxicillin Amoxicillin Unknown Drug Allergy Act claude Reason For Referral No Information Medications Medication SIG (Take, Route, Frequency, Duration) Notes Start Date End Date Status Magnesium Active Centrum Silver Activ e Vitamin D3 Active Super B Complex Acti ve Probiotic Active Atorvastatin Calcium Active Klor-Con Active dilTIAZem HCl Active Eliquis Active Osteo Bi-Flex One Per Day Active Social History Tobacco Use: Social History Observation Description Date Details (start date - stop date) Never Smoker NA - NA Tobacco use other than smoking: Question Answer Notes Are you an other tobacco user? No Tobacco Control (Standard) Question Answer Notes Tobacco use: Nonsmoker Additional Findings: Tobacco non-user Current no nsmoker AUDIT-C (Standard) Question Answer Notes Did you have a drink contain ing alcohol in the past year? Yes How often did you have six o r more drinks on one occasion in the past year? Less than monthly (1 point) How many drinks did you have on a typical day when you were drinking in the past year? 1 or 2 drinks (0 point) How often did you have a dri nk containing alcohol in the past year? Monthly or less (1 point) Points 2 Interpretation Negative Problems Problem Type SNOMED Code ICD Code Onset Dates Problem Status W/U Status Risk Notes Problem Acquired hammer toe of left foot (5291056491050445 ) Other hammer toe(s) (acquired), left foot (M20.42) Active confirmed Problem Atherosclerosis of [place] artery of both lower extremities, with unspecified presence of clinical manifestation (I70.203) Active confirmed Q7(A), Q8(2B), Q9(1B,2 C) Problem Localized, primary osteoarthritis of the ankle and/or foot (395792558) Arthritis of joint of lesser toe, left (M19.072) Active confirmed Vital Signs Height 5ft in 04/25/2024 Weight 118 lbs 04/25/2024 BMI 23.04 kg/m2 04/25/2024 Procedures Procedure Date Ordered Date Performed Result Body Sit e 06395-IQJXOPG NAIL, 6 OR MORE 04/25/2024 N/A 24449-VTXG SKIN LESIONS, OVER 4 04/25/2024 N/A Encounters Encounter Location Date Provider Diagnosis [address] [address] 04/25/2024 Rubi Casiano Pain in right toe(s) M79.674 ; Onychomycosis B35.1 ; Pain in left toe(s) M79.675 ; Other hammer toe(s) (acquired), left foot M20.42 ; Atherosclerosis of [place] artery of both lower extremities, with unspecified presence of clinical manifestation I70.203 and Tinea unguium B35.[address] [facility] [address] 04/19/2024 Rubi Casiano Assessments Encounter Date Diagnosis (ICD Code) Assessment Notes Treatment Notes Treatment Clinical Notes Section Notes 04/25/2024 Pain in right toe(s) (ICD-10 - M79.674) 04/25/2024 Pain in left toe(s) (ICD-10 - M79.675) 04/25/2024 Onychomycosis (ICD-10 - B35.1) 04/25/2024 Other hammer toe(s) (acquired), left foot (ICD-10 - M20.42) 04/25/2024 Atherosclerosis of [place] artery of both lower extremities, with unspecified presence of clinical manifestation (ICD-10 - I70.203) Q7(A), Q8(2B), Q9(1B,2C) 04/25/2024 Tinea unguium (ICD-10 - B35.1) Plan Of Treatment Pending Test Test Name Order Date 23446-[id number] NAIL, 6 OR MORE 04/25/2024 12061-PSAL SKIN LESIONS, OVER 4 04/25/20 24 Next Appt Details Provider Name:Rubi bennett, 09/24/2024 01:30:00 PM, [address] [place], [address], Insurance Providers Payer Name Payer Address Payer Phone Subscriber Number Group Number Insured Name Patient Relationship to Insured Coverage Start Date Coverage End Date Medicare National [employer] [address] [place] [address] [id number] Jennifer Mccray Self - patient is the insured 4 [employer] [address] [place] [address] [id number] Jennifer Mccray Self - patient is the insured Medical (General) History Medical History History ICD Code Arthritis Diverticulitis High Blood Pressure Measles Mumps Chicken pox Transfusions Surgical History Surgery Date(Month/Year) tonsillectomy and adenoidectomy carpal tunnel surgery rotator cuff right shoulder ileostomy Mesenteric ischemia
--- OUTSIDE RECORDS SUMMARY | 2024-05-15 12:22 | XMS_ITS ---
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 Generated for Arti zach/Kendal/eTransmitting on:?05/15/2024 12:22 PM EST
--- OUTSIDE RECORDS SUMMARY | 2024-05-15 12:22 | XMS_ITS ---
Author Organization [facility] Address [address] [place] [address] Care Team Providers Care Coordinator [employer] Name Role Phone Carleen Samson MD Primary Care Provider Unav stacie CasianoRubi Unavailable [phone] Allergies Allergen (clinical drug ingredient) Drug/Non Drug Allergy documented on EMR Reaction Allergy Type Onset Date Status amoxicillin Amoxicillin Unknown Drug Allergy Act claude REASON FOR VISIT Fungal Nails, Painful Toe(s), At Risk Footcare, Painful Nail(s) aggravated by shoes and causing difficulty standing/walking. Medications Medication SIG (Take, Route, Frequency, Duration) Notes Start Date End Date Status Probiotic Active Atorvastatin Calcium Active Klor-Con Active dilTIAZem HCl Active Eliquis Active Magnesium Active Centrum Silver Activ e Vitamin D3 Active Super B Complex Acti ve Osteo Bi-Flex One Per Day Active Social [...] Problem Acquired hammer toe of left foot (6598380965265673 ) Other hammer toe(s) (acquired), left foot (M20.42) Active confirmed Problem Localized, primary osteoarthritis of the ankle and/or foot (365964374) Arthritis of joint of lesser toe, left (M19.072) Active confirmed Problem Atherosclerosis of chipewwa artery of both lower extremities, with unspecified presence of clinical manifestation (I70.203) Active confirmed Q7(A), Q8(2B), Q9(1B,2 C) Vital Signs Height 5ft in 04/25/2024 Weight 118 lbs 04/25/2024 BMI 23.04 kg/m2 04/25/2024 Procedures Procedure Date Ordered Date Performed Result Body Sit e 17112-VWQVBZH NAIL, 6 OR MORE 04/25/2024 N/A 41769-CRUX SKIN LESIONS, OVER 4 04/25/2024 N/A Encounters Encounter Location Date Provider Diagnosis [facility] [address] [address] 04/25/2024 Rubi Casiano Pain in right toe(s) M79.674 ; Onychomycosis B35.1 ; Pain in left toe(s) M79.675 ; Other hammer toe(s) (acquired), left foot M20.42 ; Atherosclerosis of chipewwa artery of both lower extremities, with unspecified presence of clinical manifestation I70.203 and Tinea unguium B35.1 Assessments Encounter Date Diagnosis (ICD Code) Assessment Notes Treatment Notes Treatment Clinical Notes Section Notes 04/25/2024 Pain in right toe(s) (ICD-10 - M79.674) 04/25/2024 Onychomycosis (ICD-10 - B35.1) 04/25/2024 Pain in left toe(s) (ICD-10 - M79.675) 04/25/2024 Other hammer toe(s) (acquired), left foot (ICD-10 - M20.42) 04/25/2024 Atherosclerosis of chipewwa artery of both lower extremities, with unspecified presence of clinical manifestation (ICD-10 - I70.203) Q7(A), Q8(2B), Q9(1B,2C) 04/25/2024 Tinea unguium (ICD-10 - B35.1) Plan Of Treatment Pending Test Test Name Order Date 23916-NBRYACG NAIL, 6 OR MORE 04/25/2024 39644-XHYJ SKIN LESIONS, OVER 4 04/25/20 24 Next Appt Details Follow Up: 3 Months, Reason: Provider Name:Rubijoanna bennett, 09/24/2024 01:30:00 PM, [address] [place], [address], Procedure Notes * Category Sub-Category Detail Notes Debride Nail 6-10 Nail debridement Performance o f this nail treatment by a nonprofessional would put this patients foot and overall health at risk. Therefore, debridement to affected nail(s), as described in exam, was performed extensively to reduce/remove overall nail length, girth, thickness, subungual debris, and necrotic tissue, by manual and/or electrical means through the use of a nail nipper and/or dremel-type rubber roller grinder operator, to a more viable healthy nail plate or bed tissue 6-10 nails in total. Silver nitrate was used for any petechial bleeding as necessary. Definitive antifungal treatment options, both pharmaceutical and surgical, have been reviewed and discussed with the patient. The patient solely prefers the use of intermittent/as needed professional debridement services for their nail condition and understands the need for additional periodic treatments to maintain effectiveness in symptomatic relief - 13771 Keratoma Treatment Parring or Cutting o f Benign Hyperkeratotic Lesion(s) (-57) More than 4 Lesions - The Benign hyperkeratotic lesions, (6_ ) in total, locations as stated and described in exam, were pared, and/or cut utilizing a sterile 15 blade, tissue nippers, and/or power dremel instrumentation - 58729, Q8 Progress Notes * Jennifer MCCRAY ADOB: [birth year] (83 yo F)Acc No.[id number]:04/25/2024 Progress Notes Patient:?Jennifer MCCRAY Provider:?Rubi Casiano DPM :1940???Age:83 Y???Sex:Female D ate:04/25/2024 Address:[address], [id number] Pcp:Carleen Samson MD Subjective: * Chief Complaints: * ???Fungal NailsPainful Toe(s )At Risk FootcarePainful Nail(s) aggravated by shoes and causing difficulty standing/walking. * HPI: ???Painful Nails:?Nature:?aching, tender, discolored, thick.?Location:?Both feet.?Duration:?several years.?Course:?worse.?Aggravated by:?shoegear causing difficulty standing/walking.?Treatments:?none.?Toe pain:?Nature:?tenderness.?Location:?Left foot.?Duration:?several months.?Course:?worse.?Aggravated by:?any pressure, shoes.?Treatments:?rest/alter normal daily activity, change in shoes.?At Risk footcare:?Pt States Last PCP Visit:?Date?05/31/2023 * ROS:?General/Constitutional:?Nausea?denies.?Vomiting?denies.?Hunger Thirst?denies.?Loss appetite?denies.?Chills?denies.?Fatigue?denies.?Fever?denies.?Night Sweats?denies.?Unexplained weight loss?denies.?Unexplained weight gain?denies.?HEENTM:?Dentures?denies.?Dizziness?denies.?Glasses/contacts?denies.?Retinopathy?de nies.?Blurred/double vision?denies.?TMJ?denies.?Discharge/drainage?denies.?Implants?denies.?Sore throat?denies.?Dental implants?denies.?Hard of hearing ?denies.?Difficulty chewing/swallowing/speaking?denies.?Nose bleeds?denies.?Sore mouth?denies.?Respiratory:?On Oxygen?denies.?Pneumonia/pleurisy?denies.?Bronchitis?denies.?Emphysema?denies.?C oughing?denies.?Cough blood?denies.?Shortness of breath?denies.?Wheezing?denies.?Cardiovascular:?Pacemaker?denies.?MVP?denies.?WPW?denies.?CHF?denies.?Heart attack?denies.?Septal defect?denies.?Rapid beat?denies.?Chest pain ?denies.?Atrial Fib.?admits.?Murmur/Palpitations?denies.?Gastrointestinal:?Hemorrhoids?denies.?Stomach/Abdominal pain?denies.?Dark blood stool?denies.?Irritable bowel ?denies.?Constipation?denies.?Diarrhea?denies.?Hematology:?Swelling?denies.?Clots?denies.?Varicose Veins?denies.?Bruising?denies.?Bleeding problem?denies.?Genitourinary:?Blood urine?denies.?Frequent/Painfu/urination/bladder control?denies.?Kidney stones?denies.?Infection (UTI)?denies.?Nephropathy?denies.?sex trans dis (STD)?denies.?Prostate?denies.?Musculoskeletal:?Hammertoes?denies.?Bunions?denies.?Back Pain?denies.?Muscle Cramps/ Resting?denies.?Muscle cramps / walking?denies.?Generalized aches and pains?denies.?Weakness?denies.?Integ.:?Simmons?denies.?Scars?denies.?Corns/calluses?admits.?Ingrown nails?denies.?Painful nails?denies.?Open Sores?denies.?Rashes?denies.?Neurologic:?Difficulty sleeping?denies.?Brain disorder?denies.?Numbness?denies.?Balance trouble?denies.?Confusion?denies.?Fainting/blackouts?denies.?Tingling?denies.?Tr emors?denies.? * Medical History:? * Surgical History:?tonsillect jem and adenoidectomy carpal tunnel surgery rotator cuff right shoulder ileostomy Mesenteric ischemia * Hospitalization/Major Diagno stic Procedure:?Denies Past Hospitalization * Family History:?Mother: dece ased, diagnosed with Other malignant neoplasm of unspecified site, Unspecified essential hypertension, Family history of arthritis.?Father: .? * Social History:?Tobacco Use:?Tobacco use other than smoking?Are you an other tobacco user??No ?Tobacco Control (Standard)?Tobacco use:?Nonsmoker ?Additional Findings: Tobacco non-user?Current nonsmoker ???Drugs/Alcohol:?Drugs?Have you used drugs other than those for medical reasons in the past 12 months??No ???Miscellaneous:?Caffeine: yes. ?Children: no. ?Exercise: no. ?Marital status: Single. ???Drug/Alcohol:?AUDIT-C (Standard)?Did you have a drink containing alcohol in the past year??Yes ?How often did you have six or more drinks on one occasion in the past year??Less than monthly (1 point) ?How many drinks did you have on a typical day when you were drinking in the past year??1 or 2 drinks (0 point) ?How often did you have a drink containing alcohol in the past year??Monthly or less (1 point) ?Points?2 ?Interpretation?Negative * Medications:?TakingOsteo Bi- Flex One Per Day Magnesium Centrum Silver Vitamin D3 Super B Complex Probiotic Atorvastatin Calcium Klor-Con dilTIAZem HCl Eliquis Medication List reviewed and reconciled with the patientTaking Osteo Bi-Flex One Per Day Taking Magnesium Taking Centrum Silver Taking Vitamin D3 Taking Super B Complex Taking Probiotic Taking Atorvastatin Calcium Taking Klor-Con Taking dilTIAZem HCl Taking Eliquis Medication List reviewed and reconciled with the patient * Allergies:?Amoxicillinyes[Al celine Verified] Objective: * Vitals:?Ht:5ft, Wt:118, BMI: 23.04, Shoe size:7, Ht-cm: 152.4 cm, Wt-k.52 kg. * Examination: ???Nails: ?NAILS are:?Elongated, overgrown, dystrophic, lytic, greater than 3mm thick, discolored and friable with crumbly malodorous subungual debris, with pain on palpation, 1-5 B/L?.?Orthopedic: ?MUSCLE STRENGTH:?5/5 all groups in a symmetrical fashion, B/L.?DIGITAL DEFORMITIES:?Digital contracture, PIPJ, 2-5 B/L, incompl-reducible with WB, or to push-up test, no over, nor underlapping.?FOOTWEAR:? shoe gear properties exacerbate patients foot/toe deformity.?Vascular: ?DP PULSES(B):?1/4, B/L.?PT PULSES(B):? 0/4, B/L.?CAPILLARY FILL TIME:? delayed, all digits, B/L.?TROPHIC CONDITION-TEXTURE/ELASTICITY/TURGOR/HAIR GROWTH(B):? decreased, fragile, thin, shiny skin, with sparse to absent hair growth, B/L.?TEMPERTURE GRADIENT(C):? decreased, cool to cool, proximal to distal, B/L.?PIGMENTATION:?pale, B/L.?EDEMA(C):?absent, B/L.?CLAUDICATION(C):?denies, B/L.?REST PAIN:?denies, B/L.?PARESTHESIA(C):?absent, B/L.?BURNING(C):?absent, B/L.?Dermatologic: ?SKIN FINDINGS:?Skin exam reveals Keratotic lesion(s) located at, SUB MTH (s), 1, 5, B/L, Plantar Heel(s) B/L.?Neurological: ?SENSORY:?Neurological exam reveals intact sensorium, pain sensation normal, vibration sensation intact, pinprick sensation is normal in the lower extremities, Pt denies, anesthesia, burning, paresthesia, tingling, B/L.?General Examination: ?GENERAL APPEARANCE:?Reveals a pleasant, alert, well nourished, well- developed, well hydrated individual, who demonstrates proper attention to hygiene/body habitus, and is in no acute distress, Pt serves as own historian for office visit today.?ORIENTED:?person, place, and time.? Assessment: * Assessment: 1.?Pain in right toe(s) - M7 9.674???2.?Pain in left toe(s) - M79.675???3.?Onychomycosis - B35.1 (Primary)???4.?Other hammer toe(s) (acquired), left foot - M20.42???Specify :Acute problem, Uncomplicated (3)???5.?Atherosclerosis of chipewwa artery of both lower extremities, with unspecified presence of clinical manifestation - I70.203???Notes :Q7(A), Q8(2B), Q9(1B,2C)???6.?Tinea unguium - B35.1??? Plan: * Treatment: 2.?Tinea unguium?Procedure: 06364-JDLNHGS NAIL, 6 OR MORE * Procedures:?Debride Nail 6-10:?Nail debridement?Performance of this nail treatment by a nonprofessional would put this patients foot and overall health at risk. Therefore, debridement to affected nail(s), as described in exam, was performed extensively to reduce/remove overall nail length, girth, thickness, subungual debris, and necrotic tissue, by manual and/or electrical means through the use of a nail nipper and/or dremel-type rubber roller grinder operator, to a more viable healthy nail plate or bed tissue 6-10 nails in total. Silver nitrate was used for any petechial bleeding as necessary. Definitive antifungal treatment options, both pharmaceutical and surgical, have been reviewed and discussed with the patient. The patient solely prefers the use of intermittent/as needed professional debridement services for their nail condition and understands the need for additional periodic treatments to maintain effectiveness in symptomatic relief - 63643.?Keratoma Treatment:?Parring or Cutting of Benign Hyperkeratotic Lesion(s)??(-57) More than 4 Lesions - The Benign hyperkeratotic lesions, (6_ ) in total, locations as stated and described in exam, were pared, and/or cut utilizing a sterile 15 blade, tissue nippers, and/or power dremel instrumentation - 24923, Q8.? * Procedure Codes:?13500 DEBRI DE NAIL, 6 OR MORE, Modifiers: XS 76562 TRIM SKIN LESIONS, OVER 4, Modifiers: XS , Q8 * Preventive Medicine:? ??Counseling:?Discussion:?-03: Office or other outpatient visit for the evaluation and management of a new patient, which required a medically appropriate history and/or examination and LOW level of DECISION MAKING for: 1 STABLE ACUTE UNCOMPLICATED PROBLEM, 2 OR MORE MINOR PROBLEMS, OR 1 STABLE CHRONIC PROBLEM, THAT POSE(S) A LOW RISK FOR MORBIDITY/MORTALITY. The visit on the day of the encounter encompassed interpreting the data and educating the patient as to the nature of their condition, treatment options available according to their individual PMH, meds, allergies, and overall health/living conditions, as well as any potential risks or complications that may occur from a failure to adhere to, and participate in, the recommended course of therapy. The discussion included a complete verbal, and/or written explanation of the examination results, any x-rays taken, the proposed diagnosis, and outline of the treatment plan. A schedule for future care needs was also explained. The patient verbalized an understanding of the instructions at this time and agreed to be an active participant in their treatment. If the patient should think of any questions or concerns after the visit, I have encouraged the patient to call the office, ____.?Digital Surgery:?Digital surgery was discussed with the patient, including the risks of surgery(below), vs not having surgery (persistent pain, deformity, risk for skin ulceration/infection, loss of toe), the potential surg complications, the anesthesia, and the usual post-op course. No guarentees were given. We discussed the potential procedure complications including, but not limited to: pain, swelling, bleeding, scarring, numbness, infection, delayed/non healing, floppy/unstable/shorthened toe, recurrence, failure of the procedure, overcorrection leading to plantarflexed/downward positioned toe, recurrence, need for further surgery, as well as the possibility for loss of the toe itself. We discussed the use of local anesthesia, and the usual post-op course for healing. No guarentees were given. The patient verbally indicated a full understanding of the above conversation, and any other of their questions were answered to their satisfaction. Alternatives to the procedure were also discussed, including conservative care. I also discussed the usual post-operative course and gave no guarantees regarding outcome.?Digital Treatment:?I explained to the patient the possible etiologies of Hammertoes, including genetics/foot type/shoegear/activity level/exercise routine and the risks/benefits of all the different treatment options for their pain including: No treatment at all, Rest, Ice, New/supportive/wider/deeper Shoegear, Digital Padding/Strapping/Taping/Bracing/Gel protective sleeves, Foot/Ankle AFO Bracing, Stretching exercises, Deep Tissue Massage, Arch support/shoe inserts with splay metatarsal padding, and Custom orthoses. I insisted that any digital devices be removed daily and not worn overnight for safety. The patient is to carefully examine the toes daily for any skin irritation while using any splinting or padding device. The advantages and disadvantages of each option were discussed and the patients questions re: shoegear, padding, custom vs prefabricated inserts, activity level, and consistency in home treatment regimens for optimal success were answered to their verbally confirmed satisfaction, Recommended/Applied Budin Hammertoe Nitro Man.?Fungal Nail Counseling:?The patient was counseled on the diagnosis, potential etiologies (including, but not limited to, environmental factors, genetic, immune deficiency), and the multiple treatment options for Onychomycosis. We discussed the risks and benefits of each option from performing no treatment, to ultraviolet light shoe treatment, to laser nail treatment, to applying topical antifungals, to taking oral antifungal medication, to surgical removal of the involved nail(s) with or without performing a matricectomy, or any combination thereof. We discussed the advantages and disadvantages of each of possible treatment and importance for adherence to all the recommended therapies for optimum success. This includes the necessity for weekly emery board self nail home debridements, and control the nail and skin environment as much as possible by only using a fresh, dry pair of shoes/socks each day, as well as keeping the skin as dry as possible through the use of sprays/powders if necessary. The patient was instructed to discard the emery board after use to prevent reinfection of the involved nail(s). We discussed the mycological and visual clinical effectiveness of topical vs oral antifungal treatments as well as each ones potential side effects and/or any patient- specific medication interactions. We discussed the reasons behind the important requirement of regular liver function testing with oral antifungal therapy for safety. Patient questions regarding use, dosage, successful outcomes, blood tests, and possible pharmaceutical interactions were reviewed and the patient verbalized that all answers were clearly understood.?Shoe Gear Counseling:?The patient and I reviewed the types of shoes they should be wearing. My recommendation included obtaining a well-fitted shoe with a good supportive, non-foldable nor twistable sole, plenty of toe/room for the forefoot, and proper arch support. Based on todays examination, I recommended the patient look for new shoes, by having their feet professionally measured. We discussed that generally the best time of the day for a shoe fitting is the afternoon. Different shoes types and brands to best match the patients occupation and vocation were discussed. Specific brand selection will be up to the patient, their individual foot condition/deformities, and fit. The patient and I reviewed the standard new shoe break in period by wearing them for a few hours a day while checking for redness or sores as wear time is increased. The patient verbally confirmed to understanding the information discussed.? * Follow Up:?3 Months * Images: * Sign off status: Completed true * Provider:?Rubi Casiano DPM Date:?06/25/2023 Generated for Julián serrano/Kendal/Yifan on:?05/15/2024 12:22 PM EST History and Physical Notes * HPI (History of Present Illness) Category Sub-Category Detail Notes Category Not es Toe pain Nature: tenderness Location: Left foot Duration: several months Course: worse Aggravated by: any pressure, shoes Treatments: rest/alter normal da minh activity, change in shoes Painful Nails Aggravated by: shoegear causing difficul ty standing/walking Course: worse Duration: several years Location: Both feet Nature: aching, tender, disc olored, thick Treatments: none At Risk footcare Pt States Last PCP Visit: Date: 4 Examination Category Sub-Category Detail Notes Category Not es Neurological SENSORY: Neurological exa m reveals intact sensorium, pain sensation normal, vibration sensation intact, pinprick sensation is normal in the lower extremities, Pt denies, anesthesia, burning, paresthesia, tingling, B/L Dermatologic SKIN FINDINGS: Skin exam reveal s Keratotic lesion(s) located at, SUB MTH (s), 1, 5, B/L, Plantar Heel(s) B/L Orthopedic FOOTWEAR: shoe gear proper ties exacerbate patients foot/toe deformity DIGITAL DEFORMITIES: Digital contracture , PIPJ, 2-5 B/L, incompl-reducible with WB, or to push-up test, no over, nor underlapping MUSCLE STRENGTH: 5/5 all groups in a symmetrical fashion, B/L General Examination GENERAL APPEARANCE: Reveals a pleasant, alert, well nourished, well-developed, well hydrated individual, who demonstrates proper attention to hygiene/body habitus, and is in no acute distress, Pt serves as own historian for office visit today ORIENTED: person, place, and t kip Vascular DP PULSES(B): 1/4, B/L PT PULSES(B): 0/4, B/L CAPILLARY FILL TIME: delayed, all digits , B/L TEMPERTURE GRADIENT(C): decreased, cool to cool, proximal to distal, B/L TROPHIC CONDITION-TEXTURE/ELASTICITY/TURGOR/HAIR GROWTH(B): decreased, fragile, thin, shiny skin, wi th sparse to absent hair growth, B/L EDEMA(C): absent, B/L CLAUDICATION(C): denies, B/L REST PAIN: denies, B/L PIGMENTATION: pale, B/L PARESTHESIA(C): absent, B/L BURNING(C): absent, B/L Nails NAILS are: Elongated, overg rown, dystrophic, lytic, greater than 3mm thick, discolored and friable with crumbly malodorous subungual debris, with pain on palpation, 1-5 B/L
--- OUTSIDE RECORDS SUMMARY | 2024-05-15 12:23 | XMS_ITS ---
Author Name [facility] Organization Unknown History of Medication Use Medication Directions Dispensed Refills Start Date End Date Stat us traMADol (ULTRAM) 50 MG tablet Take 0.5 tablets (25 mg total) by mouth. PRN 01/27/2023 active apixaban (ELIQUIS) 5 MG tablet Take 1 tablet (5 mg total) by mouth 2 (two) times a day. 12/02/2022 active Klor-Con M20 20 MEQ tablet Pt reports taking 1/2 a tablet 01/27/2023 active acetaminophen (TYLENOL) 325 MG tablet Take 2 tablets (650 mg total) by mouth 4 times daily (every 6 hours) as needed for mild pain. 12/02/2022 active atorvastatin (LIPITOR) 40 MG tablet Take 1 tablet (40 mg total) by mouth daily. Do not start before November 27, 2022. 12/02/2022 active lactase (LACTAID) 9000 units Tab tablet Take 1 tablet (9,000 Units total) by mouth 3 (three) times a day as needed (before she trys chocolate ensure). 12/02/2022 active diltiazem (CARDIZEM CD) 180 MG 24 hr capsule Take by mouth daily. 01/27/2023 active diltiazem (CARDIZEM) 30 MG tablet Take 1 tablet (30 mg total) by mouth every 6 (six) hours around the clock. 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
--- OUTSIDE RECORDS SUMMARY | 2024-05-15 12:23 | XMS_ITS | Data Portability ---
Author Organization [facility], Main Office Address [address] [facility] [facility] [address], [address] [place] [address] Care Team Providers Care As400 Developer Name Role Phone LYNN BONDS 2ND FLOOR OTHER [phone] FLORY BROWN Primary Care Provider Assessment No assessment recorded. Plan of Treatment Reminders Order Date Submit Date Provider Last Modified By Organization Details Last Modified Time Details Appointments None record ed. Lab None record ed. Referral None record ed. Procedures None record ed. Surgeries None record ed. Imaging None record ed. Medication Orders None record ed. Patient TargetsNo targets recorded. Patient InstructionsNo instructions recorded. Reason for Referral None Reported. Problems Name Problem SNOMED Code Status Onset Date Resolution Date Notes Provider Name and Address Organization Details Recorded Time Surgical incision wound of skin 104174908267 Active 2022 abdomen HUA GARCIA NP [address] , [address], [place], [address], [facility] 3 10:42:08 Atrial fibrillati on 12352679 Active 2022 HUA GARCIA NP [address] [facility] [address] [facility], [address], [place], [address], [facility] 3 10:53:24 Essential hypertensi on 51355116 Active 2022 HUA GARCIA NP [address] [facility] [address] [facility], [address], [place], [address], [facility] 3 10:53:28 Hyperlipid emia 48005413 Active 2022 HUA GARCIA NP [address] , [address], [place], [address], [facility] 3 10:53:37 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 496152823 Active 2022 HUA GARCIA NP [address] [facility], [address], [place], [address], [facility] 3 10:53:45 Asthenia 71413682 Active 2022 HUA GARCIA NP [address] [facility] [address], [address], [place], [address], [facility] 3 10:54:04 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 2022 Marion Álvarez MD [address], [address], [place], [address], [facility] 3 21:57:31 Gastroesop hageal reflux disease without esophagiti s 370635378 Active 2022 HUA GARCIA NP [address] [facility] [address], [address], [place], [address], [facility] 3 10:11:07 Thoracic back pain 756420127 Active 2022 HUA GARCIA NP [address] [place] [address], [address], [place], [address], [facility] 3 10:40:51 Problem Notes None recorded. Medical Equipment None Reported. Allergies Allergen ID Allergen Name Allergen Category Reaction Reaction Severity Criticality Documentation Date Start Date Code Code System Note Provider Name and Address Organization Details Recorded Time [id number] 2824e lactose food,medi cation Not available Not available Not available 11/29/2022 6211 RxNorm Not Available Not Available Not Available [id number] 317734154 1571452r9 2824e amoxicill in medicatio n Not available Not available Not available 11/29/2022 723 RxNorm Not Available Not Available Not Available Medications Name Sig Start Date Stop Date Status Note LastModified by Organization Details LastModified Time diltiazem 30 mg tablet TAKE 1 TABLET BY MOUTH EVERY 6 HOURS 023 active Not Available Not Available Not Avai lable Vitals Date Recorded Body height Heart rate Respiratory rate Body temperature Oxygen saturation Oxygen saturation in Arterial blood by Pulse oximetry Systolic blood pressure Diastolic blood pressure Provider Name and Address Organization Details Last Updated DateTime 3 152.4 cm 78 /min 16 /min 97.1 [degF] 97 % 97 % 117 mm[Hg] 55 mm[Hg] HUA GARCIA NP [address] , [address], [place], [address], [facility] 3 13:17:43 Date Recorded Body height Heart rate Respiratory rate Body temperature Oxygen saturation Oxygen saturation in Arterial blood by Pulse oximetry Systolic blood pressure Diastolic blood pressure Provider Name and Address Organization Details Last Updated DateTime 3 152.4 cm 82 /min 16 /min 98.3 [degF] 98 % 98 % 122 mm[Hg] 64 mm[Hg] HUA AGRCIA NP [address] , [address], [place], [address], [facility] 3 11:19:12 Date Recorded Body height Heart rate Respiratory rate Body temperature Oxygen saturation Oxygen saturation in Arterial blood by Pulse oximetry Systolic blood pressure Diastolic blood pressure Provider Name and Address Organization Details Last Updated DateTime 3 152.4 cm 88 /min 16 /min 97.8 [degF] 97 % 97 % 132 mm[Hg] 60 mm[Hg] HUA GARCIA NP [address] [facility], [address], [place], [address], [facility] 3 14:02:39 Date Recorded Body height Heart rate Respiratory rate Body temperature Oxygen saturation Oxygen saturation in Arterial blood by Pulse oximetry Systolic blood pressure Diastolic blood pressure Provider Name and Address Organization Details Last Updated DateTime 3 152.4 cm 80 /min 16 /min 98.2 [degF] 96 % 96 % 120 mm[Hg] 55 mm[Hg] HUA GARCIA [facility] [address] , [address], [place], [address], [facility] 3 10:10:54 Date Recorded Body height Heart rate Respiratory rate Body temperature Oxygen saturation Oxygen saturation in Arterial blood by Pulse oximetry Systolic blood pressure Diastolic blood pressure Provider Name and Address Organization Details Last Updated DateTime 3 152.4 cm 82 /min 16 /min 98.7 [degF] 98 % 98 % 140 mm[Hg] 87 mm[Hg] HUA GARCIA, FLEX [address] [facility] [address] [facility], [address], [place], [address], [facility] 3 10:37:32 Social History Question Answer Notes LastModified by Organization Details LastModified Time Tobacco Smoking Status Never Smoker HUA GARCIA NP [address], [address], [place], [address], [facility] 11/29/2022 10:40:01 Do You Have An Advance Directive? Yes Information not available 11/29/2022 What Is Your Level Of Alcohol Consumption? Occasional Information not available 11/29/2022 How Many Times Per Week Do You Consume Alcohol? 3-4 Times Per Week Information not available 12/07/2022 What Is Your Code Status? Full Code Information not available 11/29/2022 Where Do You Live? SingleLevelHouse Home Alone, [address] Information not available 12/07/2022 Legal Guardian? No Information not available 12/07/2022 Do You Have A Medical Power Of Contract Clerk Automobile? Yes Information not available 12/07/2022 What Was The Date Of Your Most Recent Tobacco Screening? 12/07/2022 Information not available 12/07/2022 Do You Have An Out Of Hospital DNR? No Information not available 12/07/2022 Have You Ever Been Counseled For Unhealthy Alcohol Use? No Information not available 12/07/2022 What Is Your Relationship Status? Single Had One Boyfriend For Awhile, Didn't Work Out Because She Was Too Independent Information not available 12/07/2022 Do You Use Any Illicit Or Recreational Drugs? No Information not available 11/29/2022 Has Tobacco Cessation Counseling Been Provided? No N/a As Pt Is Non-smoker Information not available 12/07/2022 Do You Or Have You Ever Used Any Other Forms Of Tobacco Or Nicotine? No Information not available 12/07/2022 Sex: Unknown Functional Status None recorded. Mental Status None recorded. Family History Nothing Reported Notes:n/c Medical History No medical history recorded. Gynecological HistoryNo gynecological history recorded. Obstetrics History GPAL:G 0 P 0 0 0 0 Immunizations Vaccine Type Date Status Note Provider Nam e and Address Organization Details Recorded Time Influenza, adjuvanted, quadrivalent, PF 04/09/2022 completed Sarah jiménez [facility] 06/17/2023 13:23:23 Past Encounters Encounter ID Performer Location Encounter Start Date Encounter Closed Date Diagnosis/Indication Diagnosis SNOMED-CT Code Diagnosis ICD10 Code [id number] HUA GARCIA NP LYNN CAMMIE [address] [place] [address] 11/29/2022 10:23:07 12/08/2022 16:44:33 Surgical incision wound of skin 4704138260 00 R23.8 Atrial fibrillation 4943 6004 I48.91 Essential hypertension 40636406 I10 Hyperlipidemia 64108918 E78.5 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 696016221 E73.9 Asthenia 37622590 R53.1 [id number] FLEX PATEL [address] [address] 12/03/2022 14:22:54 12/09/2022 08:14:32 Surgical incision wound of skin 3172616548 00 R23.8 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 049475211 E73.9 [id number] HUA GARCIA NP [address] [address] 12/06/2022 10:51:14 12/09/2022 10:25:04 Surgical incision wound of skin 8064605788 00 R23.8 Essential hypertension 42073436 I10 [id number] Marion Álvarez MD [address] [address] 12/07/2022 13:07:44 12/14/2022 15:50:56 Essential hypertension 51437059 I10 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 613299111 E73.8 Atrial fibrillation 4943 6004 I48.0 Hyperlipidemia 86421580 E78.49 Asthenia 74569525 R53.1 Occlusive mesenteric ischemia 550881358 K55.011 Occlusion of superior mesenteric artery 563814557 K55.011 Loose stool 668919277 R1 9.5 [id number] HUA GARCIA NP [address] [address] 12/10/2022 11:17:32 12/15/2022 13:24:00 Surgical incision wound of skin 9982244584 00 R23.8 Asthenia 39839624 R53.1 [id number] FLEX PATEL [address] [place] [address] 12/13/2022 13:35:17 12/15/2022 13:45:31 Surgical incision wound of skin 4111523799 00 R23.8 Asthenia 30361118 R53.1 [id number] HUA LOMASADDIE FLEX BAILEY [address] [address] 12/15/2022 13:02:27 12/17/2022 16:02:54 Surgical incision wound of skin 6250991070 00 R23.8 Asthenia 37274838 R53.1 [id number] HUA LOMASADDIE FLEX [address] [address] 12/20/2022 10:57:01 12/22/2022 14:14:27 Surgical incision wound of skin 2659735120 00 R23.8 Asthenia 19335892 R53.1 [id number] HUA ABEBEADDIE FLEX [address] [address] 12/24/2022 13:44:46 12/28/2022 14:09:58 Surgical incision wound of skin 8707980923 00 R23.8 Atrial fibrillation 4943 6004 I48.0 Asthenia 90715447 R53.1 [id number] HUA LOMASADDIE FLEX [address] [address] 12/27/2022 10:10:05 12/29/2022 10:56:04 Gastroesophageal reflux disease without esophagitis 997997179 K21.9 Surgical i ncision wound of skin 0967071862 00 R23.8 Atrial fibrillation 4943 6004 I48.91 Essential hypertension 16490914 I10 Hyperlipidemia 75379690 E78.5 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 976953692 E73.9 Asthenia 46216806 R53.1 [id number] HUA ABEBEADDIE FLEX [address] [address] 12/29/2022 10:20:31 12/31/2022 14:50:04 Gastroesophageal reflux disease without esophagitis 815586829 K21.9 Surgical i ncision wound of skin 1413050458 00 R23.8 Atrial fibrillation 4943 6004 I48.91 Essential hypertension 76603696 I10 Hyperlipidemia 24903484 E78.5 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 206760231 E73.9 Asthenia 61732182 R53.1 Thoracic back pain 03879 8004 M54.6 Health Concerns Section Related Observation LastModified by Organization Detai ls LastModified Time None Recorded Concern Status LastModified by Organization Details LastModified Time None Recorded Advance Directives Directive Y: Payers Encounter Date Sequence Insurance Name Policy Number Policy Baird Covered Member ID Baird Member ID Guarantor Name 12/15/2022 1 [place] [employer] [place] Jennifer A Marceau [id number] 1 Jennifer Marceau 12/15/2022 2 [place] [id number] Jennifer Marceau [id number] Jennifer Marceau 12/20/2022 1 [place] Jennifer A Marceau [id number] 1 Jennifer Marceau 12/20/2022 2 [place] [id number] Jennifer Marceau [id number] Jennifer Marceau 12/24/2022 1 [place] Jennifer A Marceau [id number] 1 Jennifer Marceau 12/24/2022 2 [place] [id number] Jennifer Marceau [id number] Jennifer Marceau 12/27/2022 1 [place] Jennifer A Marceau [id number] 1 Jennifer Marceau 12/27/2022 2 [place] [id number] Jennifer Marceau [id number] Jennifer Marceau 12/29/2022 1 [place] Jennifer A Marceau [id number] 1 Jennifer Marceau 12/29/2022 2 [place] [id number] Jennifer Mccray [id number] Jennifer Mccray Notes Date Note Type Note Provider Name and Address Organization Details Recorded Time 12/15/2022 text/html seen today for a cute rounding visit, CAox3 sitting up in bed, lungs clear, abd healing slowly, steri strips in place, ambulating with PT and walker, she likes to stay in her room HUA GARCIA NP [address] [facility], [address], [place], [address], [facility] 12/15/2022 13:19:16 12/20/2022 text/html seen today for a cute rounding visit, CAOx3 sitting up in bed, ate well at breakfast, abd wound healing slowly, pt reports she is feeling better and participating with PT, ambulating with walker, bathroom with assist HUA GARCIA NP [address] [facility] [address], [address], [place], [address], [facility] 12/20/2022 11:21:34 12/24/2022 text/html seen today for a cute rounding visit, CAOx3 in bed, she does get oob for PT, dressing dry intact, saw surgeon and it is healing well, good po intake HUA GARCIA NP [address] [facility], [address], [place], [address], [facility] 12/24/2022 14:05:34 12/27/2022 text/html seen today for 3 0 day routine rounding visit-82 yof admitted to for rehab after presenting to the hospital, she was xferred to [facility] with complaint of 5 days of abd pain with nausea and 2 bloody bowel movements. It whas thought to be gastroenteritis but found to have mesenteric ischemia, sma occlusion, with high concern for compromised bowel, she had stat vascular surgery for exploratory lap, possible bowel resection. CAOx3 she has been complaining of some reflux symptoms, started omeprazole today, incision healing well and she has been participating with PT HUA GARCIA NP [address] [facility] [address], [address], [place], [address], [facility] 12/27/2022 11:22:49 12/29/2022 text/html seen today for discharge summary- 82 yof admitted to for rehab after presenting to the hospital, she was xferred to [facility] with complaint of 5 days of abd pain with nausea and 2 bloody bowel movements. It was thought to be gastroenteritis but found to have mesenteric ischemia, sma occlusion, with high concern for compromised bowel, she had stat vascular surgery for exploratory lap, possible bowel resection. CAOx3 she has been complaining of some reflux symptoms, started omeprazole with moderate response, incision healing well and she has been participating with PT, medically stable, eating and drinking fairly well HUA GARCIA, FLEX [address] [facility] [address], [address], [place], [address], [facility] [employer] 12/29/2022 10:41:28 OBGyn Episode No OBEpisode recorded.
== END 2024-05-15 12:19 | disposition home or self-care (01) ==
LOC: HO.XRAY 12:18
PROVIDERS: PCP Internal Medicine; Visit Provider Internal Medicine
DX: M25.511 Pain in right shoulder (principal); M25.40 Effusion, unspecified joint; M54.2 Cervicalgia
CPT/HCPCS: 73000; 73030

== ENCOUNTER → 2024-09-27 14:49 | Outpatient (REF) | payer MEDICARE, SELFPAY ==
--- OUTSIDE RECORDS SUMMARY | 2024-09-27 16:47 | XMS_ITS ---
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 Generated for Arti zach/Kendal/eTransmitting on:?09/27/2024 04:47 PM EDT
--- OUTSIDE RECORDS SUMMARY | 2024-09-27 16:47 | XMS_ITS ---
Author Organization [facility] [place] Address [address] [place] [address] Care Team Providers Care Feed Crusher Operator Name Role Phone Carleen Samson MD Primary Care Provider Unav stacie CasianoRubi Unavailable [phone] Allergies Allergen (clinical drug ingredient) Drug/Non Drug [...] Problem Acquired hammer toe of left foot (6474680989397896) Other hammer toe(s) (acquired), left foot (M20.42) Active confirmed Problem Localized, primary osteoarthritis of the ankle and/or foot (443091065) Arthritis of joint of lesser toe, left (M19.072) Active confirmed Problem Bilateral atherosclerosis of arteries of lower limbs (disorder) (01706292460515327 ) 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, with unspecified presence of clinical manifestation (I70.203) Active confirmed Q7(A), Q8(2B), Q9(1B,2 C) Vital Signs Height 5ft in 04/25/2024 Weight 118 lbs 04/25/2024 BMI 23.04 kg/m2 04/25/2024 Procedures Procedure Date Ordered Date Performed Result Body Sit e 08673-IGIHPUS NAIL, 6 OR MORE 04/25/2024 N/A 95714-ESDE SKIN LESIONS, OVER 4 04/25/2024 N/A Encounters Encounter Location Date Provider Diagnosis [facility] [address] [place] [address] 04/25/2024 Rubi Casiano Pain in right toe(s) M79.674 ; Onychomycosis B35.1 ; Pain in left toe(s) M79.675 ; Other hammer toe(s) (acquired), left foot M20.42 ; 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, with unspecified [...] foot (ICD-10 - M20.42) 04/25/2024 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, with unspecified presence of clinical manifestation (ICD-10 - I70.203) Q7(A), Q8(2B), Q9(1B,2C) 04/25/2024 Tinea unguium (ICD-10 - B35.1) Plan Of Treatment Pending Test Test Name Order Date 90913-GWMQZBZ NAIL, 6 OR MORE 04/25/2024 30568-RRWQ SKIN LESIONS, OVER 4 04/25/20 24 Next Appt Details Follow Up: 3 Months, Reason: Provider Name:Rubi bennett, 12/24/2024 03:15:00 PM, [address] [place] [address], [address], Procedure Notes * Category Sub-Category Detail Notes [...] use of a nail nipper and/or dremel-type die grinder, to a more viable healthy nail plate [...] to maintain effectiveness in symptomatic relief - 04800 Keratoma Treatment Parring or Cutting o f Benign Hyperkeratotic Lesion(s) (-57) More than 4 Lesions - The Benign hyperkeratotic lesions, (6_ ) in total, locations as stated and described in exam, were pared, and/or cut utilizing a sterile 15 blade, tissue nippers, and/or power dremel instrumentation - 73117, Q8 Progress Notes * Jennifer MCCRAY ADOB: [birth year] (83 yo F)Acc No.[id number]:04/25/2024 Progress Notes Patient:?Jennifer MCCRAY Provider:?Rubi Casiano DPM :1940???Age:83 Y???Sex:Female D ate:04/25/2024 Address: [address], [place], [place] Pcp:Carleen Samson MD Subjective: * Chief Complaints: [...] reviewed and reconciled with the patient * Allergies:?Amoxicillinyes[Tavon berger Verified] Objective: * Vitals:?Ht:5ft, Wt:118, BMI: 23.04, [...] - M20.42???Specify :Acute problem, Uncomplicated (3)???5.?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 Plan: * Treatment: 2.?Tinea unguium?Procedure: 85275-WYCDABC NAIL, 6 OR MORE * Procedures:?Debride Nail [...] use of a nail nipper and/or dremel-type die grinder, to a more viable healthy nail plate [...] to maintain effectiveness in symptomatic relief - 18611.?Keratoma Treatment:?Parring or Cutting of Benign Hyperkeratotic Lesion(s)??(-57) More than 4 Lesions - The Benign hyperkeratotic lesions, (6_ ) in total, locations as stated and described in exam, were pared, and/or cut utilizing a sterile 15 blade, tissue nippers, and/or power dremel instrumentation - 78455, Q8.? * Procedure Codes:?22366 DEBRI DE NAIL, 6 OR MORE, Modifiers: XS 25309 TRIM SKIN LESIONS, OVER 4, Modifiers: XS [...] answered to their verbally confirmed satisfaction, Recommended/Applied Xenia Mccullough Home Care Liaison.?Fungal Nail Counseling:?The patient was counseled on the [...] * Sign off status: Completed true * Provider:America Casiano DPM Date:?06/25/2023 Generated for Julián serrano/Kendal/Yifan on:?09/27/2024 04:47 PM EDT History and Physical Notes * HPI (History [...] 1, 5, B/L, Plantar Heel(s) B/L Orthopedic FOOTWEAR EVALUATION: shoe gear p roperties exacerbate patients foot/toe deformity DIGITAL DEFORMITIES: Digital [...] person, place, and t kip Vascular DP PULSES (B): 1/4, B/L PT PULSES (B): 0/4, B/L CAPILLARY FILL TIME: delayed, all digits , B/L TEMPERTURE GRADIENT (C): decreased, cool to cool, proximal to distal, B/L TROPHIC CONDITION-TEXTURE/ELASTICITY/TURGOR/HAIR GROWTH (B): decreased, fragile, thin, shiny skin, wi th sparse to absent hair growth, B/L EDEMA (C): absent, B/L CLAUDICATION (C): denies, B/L REST PAIN: denies, B/L PIGMENTATION: pale, B/L PARESTHESIA (C): absent, B/L BURNING (C): absent, B/L Nails NAILS are: Elongated, overg rown, dystrophic, lytic, greater than 3mm thick, discolored and friable with crumbly malodorous subungual debris, with pain on palpation, 1-5 B/L
--- OUTSIDE RECORDS SUMMARY | 2024-09-27 16:48 | XMS_ITS | Patient Health Record ---
Author Organization [facility] Address [address] [place] [address] Care Team Providers Care Hydraulic Tester Name Role Phone Chapin LEVY, Carleen Primary Care Provider Unav stacie Rubi Casiano Unavailable [phone] Allergies Allergen (clinical drug ingredient) Drug/Non Drug Allergy documented on EMR Reaction Allergy Type Onset Date Status amoxicillin Amoxicillin Unknown Drug Allergy Act claude Reason For Referral No Information Medications Medication SIG (Take, Route, Frequency, Duration) Notes Start Date End Date Status Osteo Bi-Flex One Per Day Active Magnesium Active Eliquis Active Klor-Con Active dilTIAZem HCl Active Probiotic Active Atorvastatin Calcium Active Vitamin D3 Active Super B Complex Acti ve Centrum Silver Activ e Social History Tobacco Use: Social History Observation [...] Problem Acquired hammer toe of left foot (0846710047054525) Other hammer toe(s) (acquired), left foot (M20.42) Active confirmed Problem Bilateral atherosclerosis of arteries of lower limbs (disorder) (77040799739675138 ) Atherosclerosis of [place] artery of both lower extremities, with unspecified presence of clinical manifestation (I70.203) Active confirmed Q7(A), Q8(2B), Q9(1B,2 C) Problem Localized, primary osteoarthritis of the ankle and/or foot (083829994) Arthritis of joint of lesser toe, left (M19.072) Active confirmed Vital Signs Height 5ft in 04/25/2024 Weight 118 lbs 04/25/2024 BMI 23.04 kg/m2 04/25/2024 Procedures Procedure Date Ordered Date Performed Result Body Sit e 30144-AMXNRUG NAIL, 6 OR MORE 04/25/2024 N/A 75651-GSBP SKIN LESIONS, OVER 4 04/25/2024 N/A 47218-SPYQJFC NAIL, 6 OR MORE 09/24/2024 N/A 83926-Cuufzupe Plate 09/24/2024 N/A 03264-XZZV SKIN LESIONS, OVER 4 09/24/2024 N/A Encounters Encounter Location Date Provider Diagnosis [address] [address] 04/25/2024 Rubi Casiano Pain in right toe(s) M79.674 ; Onychomycosis B35.1 ; Pain in left toe(s) M79.675 ; Other hammer toe(s) (acquired), left foot M20.42 ; Atherosclerosis of [place] artery of both lower extremities, with unspecified presence of clinical manifestation I70.203 and Tinea unguium B35.[address] [address] 09/24/2024 Rubi Casiano Atherosclerosis of [place] artery of both lower extremities, with unspecified presence of clinical manifestation I70.203 ; Tinea unguium B35.1 ; Pain in right toe(s) M79.674 ; Pain in left toe(s) M79.675 and Ingrown nail L60.[address] [address] 04/19/2024 Rubi Casiano Assessments Encounter Date Diagnosis (ICD Code) Assessment Notes Treatment Notes Treatment Clinical Notes Section Notes 04/25/2024 Pain in right toe(s) (ICD-10 - M79.674) 09/24/2024 Tinea unguium (ICD-10 - B35.1) 09/24/2024 Atherosclerosis of [place] artery of both lower extremities, with unspecified presence of clinical manifestation (ICD-10 - I70.203) Q7(A), Q8(2B), Q9(1B,2C) 09/24/2024 Pain in right toe(s) (ICD-10 - M79.674) 04/25/2024 Onychomycosis (ICD-10 - B35.1) 04/25/2024 Pain in left toe(s) (ICD-10 - M79.675) 04/25/2024 Other hammer toe(s) (acquired), left foot (ICD-10 - M20.42) 09/24/2024 Pain in left toe(s) (ICD-10 - M79.675) 04/25/2024 Atherosclerosis of [place] artery of both lower extremities, with unspecified presence of clinical manifestation (ICD-10 - I70.203) Q7(A), Q8(2B), Q9(1B,2C) 09/24/2024 Ingrown nail (ICD-10 - L60.0) 04/25/2024 Tinea unguium (ICD-10 - B35.1) Plan Of Treatment Pending Test Test Name Order Date 18129-UHVLGWA NAIL, 6 OR MORE 04/25/2024 76236-PBCMMBO NAIL, 6 OR MORE 09/24/2024 73280-Dnvklkpj Plate 09/24/2024 76701-YLTZ SKIN LESIONS, OVER 4 09/25/19 25 64213-XZTK SKIN LESIONS, OVER 4 04/25/20 24 Next Appt Details Provider Name:Rubi Christinesally sabrina, 12/24/2024 03:15:00 PM, [address] [facility], [place], [address], Insurance Providers Payer Name Payer Address Payer Phone Subscriber Number Group Number Insured Name Patient Relationship to Insured Coverage Start Date Coverage End Date Medicare National Govt Sv[employer] [address] [place] [address] [id number] Jennifer Mccray Self - patient is the insured 4 [facility] [employer] [facility] [address] [place] [address] [id number] Jennifer Mccray Self - patient is the insured Medical (General) History Medical History History ICD Code Arthritis Diverticulitis High Blood Pressure Measles Mumps Chicken pox Transfusions Surgical History Surgery Date(Month/Year) tonsillectomy and adenoidectomy carpal tunnel surgery rotator cuff right shoulder ileostomy Mesenteric ischemia
--- OUTSIDE RECORDS SUMMARY | 2024-09-27 16:48 | XMS_ITS | Data Portability ---
Author Organization [facility], Main Office Address [address] [facility] [place] [address] Care Team Providers Care Hand Candy Molder Name Role Phone LYNN BONDS 2ND FLOOR OTHER [phone] FLORY BROWN Primary Care Provider Assessment No [...] Recorded Time Surgical incision wound of skin 542728956489 Active 2022 abdomen HUA GARCIA NP [address] , [address], [place], [address], [facility] 3 10:42:08 Atrial fibrillati on 59081101 Active 2022 HUA GARCIA NP [address] [facility], [address], [place], [address], [facility] 3 10:53:24 Essential hypertensi on 56126811 Active 2022 HUA GARCIA NP [address] 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, [address], [place], [address], [facility] 3 10:53:45 Asthenia 32302546 Active 2022 HUA GARCIA NP [address] [facility], [address], [place], [address], [facility] 3 10:54:04 Occlusion of superior mesenteric artery 918137749 Active 2022 Marion Álvarez MD [address] [facility], [address], [place], [address], [facility] 3 21:57:31 Gastroesop hageal reflux disease without esophagiti s 199806163 Active 2022 HUA GARCIA NP [address] [facility], [address], [place], [address], [facility] 3 10:11:07 Thoracic back pain 931306014 Active 2022 HUA GARCIA NP [address] [place] [address], [address], [place], [address], [facility] 3 10:40:51 Problem Notes None recorded. Medical Equipment None Reported. Allergies Allergen ID Allergen Name Allergen Category Reaction Reaction Severity Criticality Documentation Date Start Date Code Code System Note Provider Name and Address Organization Details Recorded Time 54477 lactose food,medi cation Not available Not available Not available 11/29/2022 6211 RxNorm HUA GARCIA NP [address] [facility], [address], [place], [address], [facility] 3 10:38:55 38518 amoxicill in medicatio n Not available Not available Not available 11/29/2022 723 RxNorm HUA GARCIA NP [address] [place] [address], [address], [place], [address], [facility] 3 10:39:01 Medications Name Sig Start Date Stop Date [...] mm[Hg] 55 mm[Hg] HUA GARCIA NP [address] [facility], [address], [place], [address], [facility] 3 13:17:43 Date Recorded Body height Heart rate Respiratory rate Body temperature Oxygen saturation Oxygen saturation in Arterial blood by Pulse oximetry Systolic blood pressure Diastolic blood pressure Provider Name and Address Organization Details Last Updated DateTime 3 152.4 cm 82 /min 16 /min 98.3 [degF] 98 % 98 % 122 mm[Hg] 64 mm[Hg] HUA GARCIA NP [address] [facility], [facility] [address], [place], [address], [facility] 3 11:19:12 Date Recorded Body height Heart rate Respiratory rate Body temperature Oxygen saturation Oxygen saturation in Arterial blood by Pulse oximetry Systolic blood pressure Diastolic blood pressure Provider Name and Address Organization Details Last Updated DateTime 3 152.4 cm 88 /min 16 /min 97.8 [degF] 97 % 97 % 132 mm[Hg] 60 mm[Hg] HUA GARCIA NP [address] [facility], [facility] [address], [place], [address], [facility] 3 14:02:39 Date Recorded Body height Heart rate Respiratory rate Body temperature Oxygen saturation Oxygen saturation in Arterial blood by Pulse oximetry Systolic blood pressure Diastolic blood pressure Provider Name and Address Organization Details Last Updated DateTime 3 152.4 cm 80 /min 16 /min 98.2 [degF] 96 % 96 % 120 mm[Hg] 55 mm[Hg] HUA GARCIA NP [address] [facility], [facility] [address], [place], [address], [facility] 3 10:10:54 Date Recorded Body height Heart rate Respiratory rate Body temperature Oxygen saturation Oxygen saturation in Arterial blood by Pulse oximetry Systolic blood pressure Diastolic blood pressure Provider Name and Address Organization Details Last Updated DateTime 3 152.4 cm 82 /min 16 /min 98.7 [degF] 98 % 98 % 140 mm[Hg] 87 mm[Hg] HUA GARCIA NP [address] [facility], [address], [place], [address], [facility] 3 10:37:32 Social History Question Answer Notes LastModified by Organization Details LastModified Time Tobacco Smoking Status Never Smoker HUA GARCIA NP [address] [facility], [address], [place], [address], [facility] 11/29/2022 10:40:01 Do You Have An [...] Do You Have A Medical Power Of Rn Cardiology? Yes Information not available 12/07/2022 What Was [...] Vaccine Type Date Status Note Provider Nam sola and Address Organization Details Recorded Time Influenza, adjuvanted, quadrivalent, PF 04/09/2022 completed Sarah jiménez MA [facility] 06/17/2023 13:23:23 Past Encounters Encounter ID Performer Location Encounter Start Date Encounter Closed Date Diagnosis/Indication Diagnosis SNOMED-CT Code Diagnosis ICD10 Code Diagnosis Note [id number] HUA GARCIA NP [address] [address] 11/29/2022 10:23:07 12/08/2022 16:44:33 Surgical incision wound of skin 0789707122 00 R23.8 monitor for any signs of infectionm onitor BSencourag e cough, deep breath, ispirofoll owup with surgeon as scheduled Atrial fibrillation 4943 6004 I48.91 diltiazem 30 mg s1nekifvfb s 5 mg bidmonitor heart rate Essential hypertension 70738793 I10 monitor bp Hyperlipidemia 76657531 E78.5 atorvastat in 40 mg daily 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 596137230 E73.9 lactaid tid Asthenia 75191070 R53.1 PT OT eval and treatfall precaution frequent safety checks [id number] HUA GARCIA NP [address] [address] 12/03/2022 14:22:54 12/09/2022 08:14:32 Surgical incision wound of skin 9274257992 00 R23.8 monitor for any signs of infectionm onitor BSencourag e cough, deep breath, ispirofoll owup with surgeon as scheduledp robiotic daily 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 652159196 E73.9 lactaid tidensure clear tid for snacks [id number] HUA GARCIA NP [address] [address] 12/06/2022 10:51:14 12/09/2022 10:25:04 Surgical incision wound of skin 4154060324 00 R23.8 monitor for any signs of infectionm onitor BSchange dressing per surgeon recommenda tionsencou rage cough, deep breath, ispirofoll owup with surgeon as scheduledp robiotic daily Essential hypertension 03113117 I10 monitor bp [id number] MD LYNN Gipson [address] [address] 12/07/2022 13:07:44 12/14/2022 15:50:56 Essential hypertension 82570960 I10 BP in good control on diltiazem 30 mg q 6 hrsMonitor BP and labs. 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 Atrial fibrillation 4943 6004 I48.0 Rate in good control on meds as above.Cont inue eliquis 5 mg BID for AC.Monitor HR and bleeding risk. Hyperlipidemia 42117175 E78.49 Continue atorvastat in 40 mg qdMonitor labs as outpt. Asthenia 91810190 R53.1 Very deconditio gibson.Needs PT/OT for strengthen ing, balance, gait training, safety and function.C ontinue fall precaution s.Monitor for safety. 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 Recovering well.Aminah nue tramadol 25 mg q 6 hrs prn and APAP 650 mg q 6 hrs prnContinu e apixaban 5 mg BID for DVT prophylaxi s (already on this for Afib).Cont inue wound care as ordered.Co ntinue Ensure clear TID for wound healing.F/ U with surgeon as planned (appt on 12/08). Occlusion of superior mesenteric artery 108387271 K55.011 As above. Loose stool 679719484 R1 9.5 Improved.C ontinue acidophilu s qdMonitor bowel function [id number] FLEX PATEL CAMMIE [address] [place] [address] 12/10/2022 11:17:32 12/15/2022 13:24:00 Surgical incision wound of skin 1206662978 00 R23.8 monitor for any signs of infectionm onitor BSchange dressing per surgeon recommenda tions-bide ncourage cough, deep breath, ispirofoll owup with surgeon as scheduledp robiotic dailyAVOID laxatives Asthenia 36988407 R53.1 PT OT eval and treatfall precaution frequent safety checks [id number] HUA FLEX GARCIA LYNN BONDS [address] [place] [address] 12/13/2022 13:35:17 12/15/2022 13:45:31 Surgical incision wound of skin 7705015989 00 R23.8 monitor for any signs of infectionm onitor BSchange dressing per surgeon recommenda tions-bide ncourage cough, deep breath, ispirofoll owup with surgeon as scheduledp robiotic dailyAVOID laxatives Asthenia 81827531 R53.1 PT OT eval and treatfall precaution frequent safety checks [id number] HUA GARCIA NP [address] [address] 12/15/2022 13:02:27 12/17/2022 16:02:54 Surgical incision wound of skin 4522390713 00 R23.8 monitor for any signs of infectionm onitor BSchange dressing per surgeon recommenda tions-bide ncourage cough, deep breath, ispirofoll owup with surgeon as scheduledp robiotic dailyAVOID laxatives Asthenia 94523873 R53.1 PT OT eval and treatfall precaution frequent safety checks [id number] [facility] NP [facility] [address] [place] [address] 12/20/2022 10:57:01 12/22/2022 14:14:27 Surgical incision wound of skin 3396245698 00 R23.8 monitor for any signs of infectionm onitor BSchange dressing per surgeon recommenda tions-bide ncourage cough, deep breath, ispirofoll owup with surgeon as scheduledp robiotic dailyAVOID laxatives Asthenia 61644002 R53.1 PT OT eval and treatfall precaution frequent safety checks [id number] [facility]UA [facility]ARCIA NP [facility] [address] [place] [address] 12/24/2022 13:44:46 12/28/2022 14:09:58 Surgical incision wound of skin 3468055361 00 R23.8 monitor for any signs of infectionm onitor BSchange dressing per surgeon recommenda tions-bide ncourage cough, deep breath, ispirofoll owup with surgeon as scheduledp robiotic dailyAVOID laxatives Atrial fibrillation 4943 6004 I48.0 diltiazem 30 mg v6pspcogop s 5 mg bidmonitor heart rate Asthenia 47547601 R53.1 PT OT eval and treatfall precaution frequent safety checks [id number] HUA FLEX GARCIA [address] [address] 12/27/2022 10:10:05 12/29/2022 10:56:04 Gastroesophageal reflux disease without esophagitis 204641939 K21.9 omeprazole 20 mg bid Surgical i ncision wound of skin 1192356725 00 R23.8 monitor for any signs of infectionm onitor BSencourag e cough, deep breath, ispirofoll owup with surgeon as scheduled Atrial fibrillation 4943 6004 I48.91 diltiazem 30 mg b9rkhzcidf s 5 mg bidmonitor heart rate Essential hypertension 69332540 I10 monitor bp Hyperlipidemia 58178304 E78.5 atorvastat in 40 mg daily 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 907408833 E73.9 lactaid tid Asthenia 99147953 R53.1 PT OT eval and treatfall precaution frequent safety checks [id number] HUA GARCIA NP [address] [address] 12/29/2022 10:20:31 12/31/2022 14:50:04 Gastroesophageal reflux disease without esophagitis 559088612 K21.9 omeprazole 20 mg bid Surgical i ncision wound of skin 0013164226 00 R23.8 monitor for any signs of infectionm onitor BSencourag e cough, deep breath, ispirofoll owup with surgeon as scheduled Atrial fibrillation 4943 6004 I48.91 diltiazem 30 mg b2nfwoepnh s 5 mg bidmonitor heart rate Essential hypertension 00720058 I10 monitor bp Hyperlipidemia 94712452 E78.5 atorvastat in 40 mg daily 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 158098066 E73.9 lactaid tid Asthenia 36185061 R53.1 PT OT eval and treatfall precaution frequent safety checks Thoracic back pain 73267 8004 M54.6 lidoderm patch dailytrama dol 25 mg q6hr prn Health Concerns Section Related Observation LastModified by Organization Detai ls LastModified Time None Recorded Concern Status LastModified by Organization Details LastModified Time None Recorded Advance Directives Directive Y: Payers Encounter Date Sequence Insurance Name Policy Number Policy Baird Covered Member ID Baird Member ID Guarantor Name 12/15/2022 1 [place] [employer] Jennifer A Marceau [id number] 1 Jennifer Marceau 12/15/2022 2 [place] [id number] Jennifer Marceau [id number] Jennifer Marceau 12/20/2022 1 [place] [facility] GOVERNMENT SERVICES Jennifer A Marceau [id number] 1 Jennifer Marceau 12/20/2022 2 [place] [id number] Jennifer Marceau [id number] Jennifer Marceau 12/24/2022 1 [place] Jennifer Lambert Marceau [id number] Jennifer Marceau 12/24/2022 2 [place] [id number] Jennifer Marceau [id number] Jennifer Marceau 12/27/2022 1 [place] Jennifer A Marceau [id number] Jennifer Marceau 12/27/2022 2 [place] [id number] Jennifer Marceau [id number] Jennifer Marceau 12/29/2022 1 [place] Jennifer A Marceau [id number] 1 Jennifer Marceau 12/29/2022 2 [place] [id number] Jennifer Marceau [id number] Jennifer Marceau Notes Date Note Type Note Provider Name and Address Organization Details Recorded Time 12/15/2022 text/html seen today for a cute rounding visit, CAox3 sitting up in bed, lungs clear, abd healing slowly, steri strips in place, ambulating with PT and walker, she likes to stay in her room HUA GARCIA NP [address] [facility], [address], [place], [address], [facility] 12/15/2022 13:19:16 12/20/2022 text/html seen today for a cute rounding visit, CAOx3 sitting up in bed, ate well at breakfast, abd wound healing slowly, pt reports she is feeling better and participating with PT, ambulating with walker, bathroom with assist HUA GARCIA NP [address] [facility], [address], [place], [address], [facility] [facility] 12/20/2022 11:21:34 12/24/2022 text/html seen today for a cute rounding visit, CAOx3 in bed, she does get oob for PT, dressing dry intact, saw surgeon and it is healing well, good po intake HUA GARCIA NP [address] [facility], [address], [place], [address], [facility] [facility] 12/24/2022 14:05:34 12/27/2022 text/html seen today for [...] participating with PT HUA GARCIA NP [address] [facility], [address], [place], [address], [employer] [facility] 12/27/2022 11:22:49 12/29/2022 text/html seen today for [...] stable, eating and drinking fairly well HUA GARCIA NP [address] [facility], [address], [place], [address], [facility] 12/29/2022 10:41:28 OBGyn Episode No OBEpisode recorded.
--- OUTSIDE RECORDS SUMMARY | 2024-09-27 16:48 | XMS_ITS | Clinical Summary ---
Author Organization [facility] Address [address] [place] [address] Care Team Providers Care Director Outcomes Name Role Phone Carleen Samsno MD Primary Care Provider [phone] Hernesto Dior MD Unavailable [phone] Allergies Active Allergy Reactions Criticality Noted Date Comments Amoxicillin Rash/Dermatitis Low 11/18/2022 Lactose GI Intolerance/Nausea/Vomiting Low 01/24 Medications acetaminophen (TYLENOL) 325 MG tabletIndicatio ns:Occlusion of superior mesenteric artery Take 2 tablets (650 mg total) by mouth 4 times daily (every 6 hours) as needed for mild pain. 240 tablet 3 Active atorvastatin (LIPITOR) 40 MG tabletIndicatio ns:Occlusion of superior mesenteric artery Take 1 tablet (40 mg total) by mouth daily. Do not start before November 27, 2022. 30 tablet 3 Active diltiazem (CARDIZEM) 30 MG tabletIndicatio ns:Occlusion of superior mesenteric artery Take 1 tablet (30 mg total) by mouth every 6 (six) hours around the clock. 70 tablet 3 Active lactase (LACTAID) 9000 units Tab tabletIndicatio ns:Occlusion of superior mesenteric artery Take 1 tablet (9,000 Units total) by mouth 3 (three) times a day as needed (before she trys chocolate ensure). 0 3 Active apixaban (ELIQUIS) 5 MG tabletIndicatio ns:Occlusion of superior mesenteric artery Take 1 tablet (5 mg total) by mouth 2 (two) times a day. 60 tablet 3 Active diltiazem (CARDIZEM CD) 180 MG 24 hr capsule Take by mouth daily. 08/03/202 3 Active Klor-Con M20 20 MEQ tablet Pt reports taking 1/2 a tablet 3 Active traMADol (ULTRAM) 50 MG tablet Take 0.5 tablets (25 mg total) by mouth. PRN 3 Active Active Problems Problem Noted Date Diagnosed Date Ischemia, bowel 11/18/2022 Ischemic bowel syndrome 11/18/2022 Occlusion of superior mesenteric artery 11/18/19 23 Social History Tobacco Use Types Packs/Day Years Used Date Smoking Tobacco: Never Smokeless Tobacco: Never Tobacco Cessation:Counseling Given: Not Answered Alcohol Use Standard Drinks/Week Comments Never 0 (1 standard drink = 0.6 oz pur e alcohol) Comments Unknown Sex and Gender Information Value Date Recorded Sex Assigned at Female 11/23/2022 5:45 PM EDT Legal Sex Female 8:54 PM EDT Gender Identity Female 11/23/2022 5:45 PM EDT Sexual Orientation Heterosexual (straight) 11/23 5:45 PM EDT Last Filed Vital Signs Vital Sign Reading Time Taken Comments Blood Pressure 128/58 01/24/2023 10:27 AM EDT L 122/60 Pulse 89 01/24/2023 10:27 AM EDT Temperature 36.7 ??C (98.1 ??F) 12/08/2022 1:50 PM ED T Respiratory Rate 20 11/26/2022 11:59 AM EDT Oxygen Saturation 99% 01/24/2023 10:27 AM EDT Inhaled Oxygen Concentration - - Weight 56.7 kg (125 lb) 01/24/2023 10:27 AM EDT Height 152.4 cm (5') 01/24/2023 10:27 AM EDT Body Mass Index 24.41 01/24/2023 10:27 AM EDT Plan of Treatment Health Maintenance Due Date Last Done Comments DTaP/Tdap/Td Vaccines (1 - Tdap) 1958 Pneumococcal Vaccines 50+ (1 of 1 - PCV) 1989 Zoster (Shingles) Vaccine (1 of 2) 1989 DXA Bone Density (Females,Ages 65 and older) 2004 RSV Vaccine 60 years and older and Patients (1 - 1-dose 75+ series) 2014 Influenza Vaccine 12/29/2023 04/09/2022 COVID-19 Vaccine ( season) 2024 07/01/2022, 08/31/2021, 02/26/2021, Additional history exists Hepatitis B Vaccines Aged Out No long er eligible based on patient's age to complete this topic Insurance MEDICARE PART A & B [place] [id number] Advance Directives * Full Code (Latest Code Status on File) Date Activated Date Inactivated Comments 11/18/2022 4:22 AM Care Teams Director Outcomes Relationship Specialty [place] [address] [place] [address] PCP - General Internal Medicine 11/19/22 Hernesto Dior MD [address] [place] [id number] Internal Medicine 01/24/23
--- OUTSIDE RECORDS SUMMARY | 2024-09-27 16:48 | XMS_ITS ---
Author Organization [facility] Care Team Providers Care Parole Hearing Officer Name Role Phone Gilmer Lerner Unavailable Unavailable Merari Calderon Unavailable Unavailable Marion Álvarez Unavailable Unavailable Allergies and adverse reactions Code CodeSystem Substance Reaction Severity StartDate Concern Status Lactose Intolerant Unknown 11/27/2022 ac tive 723 RXNORM Amoxicillin Anaphylaxis (code- 96419212, SNOMED CT) Severe 11/26/2022 active Care Team Name Role Address Phone Organization Fermín Álvarez PCP [address], [address], [place] (Office): [facility] 11/26/2022 - 12/30/2022 Gilmer Lerner Attending Physician [address] [address], [place], [address], [place] (Office): : [facility] 11/26/2022 - 12/30/2022 Merari Calderon Attending Physician [address], [address], [place] (Office): : [facility] 11/26/2022 - 12/30/2022 Immunizations Immunization Status Vaccine Details Vaccine Code CodeSystem Wilian e Notes Influenza completed Influenza, split virus, trivalent, injectable, contains preservative 141 CVX created date: 12/01/2022 administered date: 04/09/2022 PCV13 (Pneumococcal Conjugate)Vaccine completed pneumococcal conjugate vaccine, 13 valent 133 CVX created date: 12/21/2022 administered date: 02/21/2016 SARS-COV-2 (COVID-19) completed SARS-COV-2 (COVID-19) vaccine, mRNA, spike protein, LNP, preservative free, 30 mcg/0.3mL dose Step 2 of Multi-step with next step required 208 CVX created date: 12/01/2022 administered date: 07/24/2020 SARS-COV-2 (COVID-19) completed SARS-COV-2 (COVID-19) vaccine, mRNA, spike protein, LNP, preservative free, 30 mcg/0.3mL dose Step 1 of Multi-step with next step required 208 CVX created date: 12/01/2022 administered date: 07/03/2020 Pfizer Covid-19 Booster (SARS-COV-2) vaccine completed SARS-COV-2 (COVID-19) vaccine, mRNA, spike protein, LNP, preservative free, 30 mcg/0.3mL dose 208 CVX created date: 12/01/2022 administered date: 08/31/2021 Pfizer Covid-19 Booster (SARS-COV-2) vaccine completed SARS-COV-2 (COVID-19) vaccine, mRNA, spike protein, LNP, preservative free, 30 mcg/0.3mL dose 208 CVX created date: 12/01/2022 administered date: 02/26/2021 PfizerNetatmo Covid-19 Bi-valent Solution completed SARS-COV-2 (COVID-19) vaccine, mRNA, spike protein, LNP, bivalent, preservative free, 30 mcg/0.3 mL dose, farhad-sucrose formulation 300 CVX created date: 12/01/2022 administered date: 07/01/2022 Mental Status Section Date Assessment Total Score Description 12/30/2022 BIMS 15 cognitively int act CAM 0 No delirium ind icated PHQ-9 00 12/01/2022 BIMS 15 cognitively int act CAM 0 No delirium ind icated PHQ-9 06 mild depression Problems Problem # Description Date of onset Resolved Date Code CodeSystem Concern Status 1 ENCOUNTER FOR SURGICAL AFTERCARE FOLLOWING SURGERY ON THE DIGESTIVE SYSTEM 11/29/[address] active 2 ACQUIRED ABSENCE OF OTHER SPECIFIED PARTS OF DIGESTIVE TRACT 11/26/[address] active 3 ACUTE INFARCTION OF INTESTINE, PART AND EXTENT UNSPECIFIED 11/26/[address] active 4 DIFFICULTY IN WALKING, NOT ELSEWHERE CLASSIFIED 11/26/[address] active 5 ESSENTIAL (PRIMARY) HYPERTENSION 11/26/[address] active 6 MUSCLE WASTING AND ATROPHY, NOT ELSEWHERE CLASSIFIED, MULTIPLE SITES 11/26/[address] active 7 PAROXYSMAL ATRIAL FIBRILLATION 11/26/[address] active 8 UNSPECIFIED INJURY OF SUPERIOR MESENTERIC ARTERY, SUBSEQUENT ENCOUNTER 11/26/[address] active 9 UNSPECIFIED PROTEIN-CALORIE MALNUTRITION 11/26/[address] active 10 UNSTEADINESS ON FEET 11/26/[address] active Reason for Referral No Reasons for Referral Entered Social History Social History Observation Description Start Date End Date Code Code System Current Smoking Status Tobacco smoking consumption unknown 085748040 SNOMED CT Sex Assigned At Female 1940 [address]-8 [facility] Vital Signs Code Code System Vitals Name Values and Units Timing Information 9279-1 INC Respiratory Rate Value=18.0 Units=/m in 12/30/2022 8462-4 LOINC Blood Pressure-Diastolic Value=57 Un its=mmHg 12/30/2022 8480-6 LOINC Blood Pressure-Systolic Jjoug=636 Un its=mmHg 12/30/2022 8310-5 INC Body Temperature Value=98.0 Units=?? F 12/30/2022 8867-4 LOINC Heart rate Value=93.0 Units=/min 07/2022 27423-6 INC O2 % BldC Oximetry Value=94.0 Units= % 12/30/2022 04618-5 LOINC Pain Level Value=0.0 12/30/2022 00566-7 LOINC Weight Nyttg=363.0 Units=Lbs 05/2022 8302-2 LOINC Height Value=60.0 Units=Inches 11/26/2022
--- OUTSIDE RECORDS SUMMARY | 2024-09-27 16:48 | XMS_ITS | Encounter Summary ---
Author Organization [facility] Address [address] [place] [address] Care Team Providers Care Curriculum Coordinator Name Role Phone Carleen Samson MD Primary Care Provider [phone] Hernesto Dior MD Unavailable [phone] Encounter Details Date Type Department Care Team (Late st Contact Info) Description 12/09/2022 Scanned Document [facility] Emergency General Surgery [place] [address] [facility] [address] [place] [address] Social History Tobacco Use Types Packs/Day Years Used Date Smoking Tobacco: Never Smokeless Tobacco: Never Alcohol Use Standard Drinks/Week Comments Never 0 (1 standard drink = 0.6 oz pur e alcohol) Comments Unknown Sex and Gender Information Value Date Recorded Sex Assigned at Female 11/23/2022 5:45 PM EDT Legal Sex Female 8:54 PM EDT Gender Identity Female 11/23/2022 5:45 PM EDT Sexual Orientation Heterosexual (straight) 11/23 5:45 PM EDT COVID-19 Exposure Response Date Recorded In the last 10 days, have yo u been in contact with someone who was confirmed or suspected to have Coronavirus/COVID-19? No / Unsure 11/23/2022 5:44 PM EDT documented as of this encounter Plan of Treatment Not on file documented as of this encounter Visit Diagnoses Not on filedocumented in this encounter Care Teams Curriculum Coordinator Relationship Specialty Start Date End Date Carleen Samson MD [address] [address] PCP - General Internal Medicine 11/19/22 Hernesto Dior MD [address] [address] Internal Medicine 01/24/23 documented as of this encounter
--- OUTSIDE RECORDS SUMMARY | 2024-09-27 16:48 | XMS_ITS | Encounter Summary ---
Author Organization [facility] Address [address] [place] [address] Care Team Providers Care Digital X Ray Service Engineer Name Role Phone Carleen Samson MD Primary Care Provider [phone] Hernesto Dior MD Unavailable [phone] Encounter Details Date Type Department Care Team (Late st Contact Info) Description 12/10/2022 Scanned Document [facility] Emergency General Surgery [place] [address] [facility] [address] [place] [id number] Suzanne Mosquera APRN [address] [facility] [address] [address] [place] [address] Social History Tobacco Use Types Packs/Day Years [...] on filedocumented in this encounter Care Teams Digital X Ray Service Engineer Relationship Specialty [place] [address] [place] [address] PCP - General Internal Medicine 11/19/22 Hernesto Dior MD [address] [place] [address] Internal Medicine 01/24/23 documented as of this encounter
--- OUTSIDE RECORDS SUMMARY | 2024-09-27 16:48 | XMS_ITS ---
Author Organization [facility] Address [address] [place] [address] Care Team Providers Care Post Office Manager Name Role Phone Carleen Samson MD Primary Care Provider Unav stacie Rubi Casiano Unavailable [phone] Allergies Allergen (clinical drug ingredient) Drug/Non Drug Allergy documented on EMR Reaction Allergy Type Onset Date Status amoxicillin Amoxicillin Unknown Drug Allergy Act claude REASON FOR VISIT At Risk Footcare, Painful Nail(s) aggravated by shoes and causing difficulty standing/walking., Ingrown Nail Medications Medication SIG (Take, Route, Frequency, Duration) Notes Start Date End Date Status Klor-Con Active dilTIAZem HCl Active Probiotic Active Atorvastatin Calcium Active Super B Complex Acti ve Osteo Bi-Flex One Per Day Active Magnesium Active Eliquis Active Vitamin D3 Active Centrum Silver Activ e Social History Tobacco [...] less (1 point) Points 2 Interpretation Negative Procedures Procedure Date Ordered Date Performed Result Body Sit e 87907-EMGPCKL NAIL, 6 OR MORE 09/24/2024 N/A 99915-Lssxvolm Plate 09/24/2024 N/A 01390-EFKK SKIN LESIONS, OVER 4 09/24/2024 N/A Encounters Encounter Location Date Provider Diagnosis [facility] [address] [place] [address] 09/24/2024 Rubi Casiano Atherosclerosis of [place] artery of both lower extremities, with unspecified presence of clinical manifestation I70.203 ; Tinea unguium B35.1 ; Pain in right toe(s) M79.674 ; Pain in left toe(s) M79.675 and Ingrown nail L60.0 Assessments Encounter Date Diagnosis (ICD Code) Assessment Notes Treatment Notes Treatment Clinical Notes Section Notes 09/24/2024 Atherosclerosis of [place] artery of both lower extremities, with unspecified presence of clinical manifestation (ICD-10 - I70.203) Q7(A), Q8(2B), Q9(1B,2C) 09/24/2024 Tinea unguium (ICD-10 - B35.1) 09/24/2024 Pain in right toe(s) (ICD-10 - M79.674) 09/24/2024 Pain in left toe(s) (ICD-10 - M79.675) 09/24/2024 Ingrown nail (ICD-10 - L60.0) Plan Of Treatment Pending Test Test Name Order Date 70430-EKMKMQD NAIL, 6 OR MORE 09/24/2024 07573-Ugyxmotp Plate 09/24/2024 42143-CVAC SKIN LESIONS, OVER 4 09/25/19 25 Next Appt Details Follow Up: 3 Months, Reason: Provider Name:Rubi bennett, 12/24/2024 03:15:00 PM, [address] [place] [address], [phone], Procedure Notes * Category Sub-Category Detail Notes Nail Avulsion Procedure A fine sterile e levator was placed between the eponychium, nail fold, and nail plate to separate the structures. A sterile nail splitter, and/or sterile 316 blade, was then used to longitudinally section the nail along its entire length through the eponychium to the area under the nail fold. The offending portion of nail was from the nail bed with a rolling action and then removed with a hemostat. No underlying bone was identified. There was minimal bleeding as hemostasis was achieved through the temporary use of either a digital tourniquet or the aforementioned local with epinephrine. A bacitracin sterile dressing was applied. Local wound aftercare instructions were discussed and dispensed. The patient was informed of both conservative and future surgical procedures to prevent recurrence. Tylenol or Motrin was recommended for pain or discomfort - 16825 Anesthesia was accomplished TOP ICALLY with Lidocaine Hydrochloride Jelly 2 percent Location Medial nail border, TA Debride Nail 6-10 Nail debridement Due to the cl inical pathology outlined in the exam findings, performance of this nail treatment is medically necessary as its management by an unskilled/untrained nonprofessional would put this patients foot and overall health at risk. Therefore, debridement to affected nail(s), as described in exam ( T1, T2, T3, T4, T5, T6, T7, T8, T9, ), was performed exclusively by the physician of record to reduce/remove overall nail length, girth, thickness, subungual debris, and necrotic tissue, by manual and/or electrical means through the use of a nail nipper and/or dremel-type head grinder, to a more viable healthy nail [...] to maintain effectiveness in symptomatic relief - 29399 Keratoma Treatment Parring or Cutting o f Benign Hyperkeratotic Lesion(s) (-57) More than 4 Lesions - Due to the a t risk nature of the patients medical condition as documented in the exam findings, performance of this keratoderma treatment is medically necessary as its management by an unskilled/untrained nonprofessional would put this patients foot and overall health at risk. Therefore, the benign hyperkeratotic lesions, (6) in total, locations as stated and described in the exam ( SUB MTH (s), 1, 5, B/L, Plantar Heel(s) B/L ), were pared, and/or cut utilizing a sterile 15 blade, tissue nippers, and/or power dremel instrumentation by the physician of record - 49472 Progress Notes * Jennifer MCCRAY ADOB: [birth year] (84 yo F)Acc No.[id number]:09/24/2024 Progress Note Patient:?Jennifer MCCRAY Provider:?Rubi Casiano DPM :1940???Age:84 Y???Sex:Female D ate:09/24/2024 Address:[address] [place], [place] [id number] Pcp:Carleen Samson MD Subjective: * Chief Complaints: * ???At Risk FootcarePainful N ail(s) aggravated by shoes and causing difficulty standing/walking.Ingrown Nail * HPI: ???At Risk footcare:?Pt States Last PCP Visit:?Date?07/31/2024 * ROS:?General/Constitutional:?Nausea?denies.?Vomiting?denies.?Hunger Thirst?denies.?Loss appetite?denies.?Chills?denies.?Fatigue?denies.?Fever?denies.?Night Sweats?denies.?Unexplained weight loss?denies.?Unexplained [...] patient * Allergies:?Amoxicillinyes[Al celine Verified] Objective: * Vitals:? * Examination: ???Nails: ?NAILS are:?Elongated, overgrown, dystrophic, lytic, greater than 3mm thick, discolored and friable with crumbly malodorous subungual debris, with pain on palpation,, TA, T1, T2, T3, T4, T5, T6, T7, T8, T9.?Vascular: ?DP PULSES (B):?1/4, B/L.?PT PULSES (B):? 0/4, B/L.?CAPILLARY FILL TIME:? delayed, all digits, B/L.?TROPHIC CONDITION-TEXTURE/ELASTICITY/TURGOR/HAIR GROWTH (B):? decreased, fragile, thin, shiny skin, with sparse to absent hair growth, B/L.?TEMPERTURE GRADIENT (C):? decreased, cool to cool, proximal to distal, B/L.?PIGMENTATION:?pale, B/L.?EDEMA (C):?absent, B/L.?CLAUDICATION (C):?denies, B/L.?REST PAIN:?denies, B/L.?PARESTHESIA (C):?absent, B/L.?BURNING (C):?absent, B/L.?Dermatologic: ?SKIN FINDINGS:?Skin exam reveals Keratotic lesion(s) located at, SUB MTH (s), 1, 5, B/L, Plantar Heel(s) B/L.?Ingrown Nail: ?INSPECTION:?Reveals nail incurvation, pain on palpation, groove hypertrophy, Medial nail border,?, TA.? Assessment: * Assessment: 1.?Tinea unguium - B35.1???2 .?Atherosclerosis of [place] artery of both lower extremities, with unspecified presence of clinical manifestation - I70.203 (Primary)???Notes :Q7(A), Q8(2B), Q9(1B,2C)???3.?Pain in right toe(s) - M79.674???4.?Pain in left toe(s) - M79.675???5.?Ingrown nail - L60.0???Specify :Medial nail border, TA??? Plan: * Treatment: 2.?Tinea unguium?Procedure: 77069-AEYODUZ NAIL, 6 OR MORE 3.?Ingrown nail?Procedure: 83727-Putvbnxv Plate * Procedures:?Debride Nail 6-10:?Nail debridement?Due to the clinical pathology outlined in the exam findings, performance of this nail treatment is medically necessary as its management by an unskilled/untrained nonprofessional would put this patients foot and overall health at risk. Therefore, debridement to affected nail(s), as described in exam ( T1, T2, T3, T4, T5, T6, T7, T8, T9, ), was performed exclusively by the physician of record to reduce/remove overall nail length, girth, thickness, subungual debris, and necrotic tissue, by manual and/or electrical means through the use of a nail nipper and/or dremel-type head grinder, to a more viable healthy nail plate or bed tissue 6- 10 nails in total. Silver nitrate was used for any petechial bleeding as necessary. Definitive antifungal treatment options, both pharmaceutical and surgical, have been reviewed and discussed with the patient. The patient solely prefers the use of intermittent/as needed professional debridement services for their nail condition and understands the need for additional periodic treatments to maintain effectiveness in symptomatic relief - 65909.?Keratoma Treatment:?Parring or Cutting of Benign Hyperkeratotic Lesion(s)?(-57) More than 4 Lesions - Due to the at risk nature of the patients medical condition as documented in the exam findings, performance of this keratoderma treatment is medically necessary as its management by an unskilled/untrained nonprofessional would put this patients foot and overall health at risk. Therefore, the benign hyperkeratotic lesions, (6) in total, locations as stated and described in the exam ( SUB MTH (s), 1, 5, B/L, Plantar Heel(s) B/L ), were pared, and/or cut utilizing a sterile 15 blade, tissue nippers, and/or power dremel instrumentation by the physician of record - 14685.?Nail Avulsion:?Location?Medial nail border, TA.?Anesthesia?was accomplished TOPICALLY with Lidocaine Hydrochloride Jelly 2 percent.?Procedure?A fine sterile elevator was placed between the eponychium, nail fold, and nail plate to separate the structures. A sterile nail splitter, and/or sterile 316 blade, was then used to longitudinally section the nail along its entire length through the eponychium to the area under the nail fold. The offending portion of nail was from the nail bed with a rolling action and then removed with a hemostat. No underlying bone was identified. There was minimal bleeding as hemostasis was achieved through the temporary use of either a digital tourniquet or the aforementioned local with epinephrine. A bacitracin sterile dressing was applied. Local wound aftercare instructions were discussed and dispensed. The patient was informed of both conservative and future surgical procedures to prevent recurrence. Tylenol or Motrin was recommended for pain or discomfort - 87864.? * Procedure Codes:?64371 DEBRI DE NAIL, 6 OR MORE, Modifiers: XS 91845 Avulsion Plate, Modifiers: XS , [id number] TRIM SKIN LESIONS, OVER 4, Modifiers: XS , Q8 * Follow Up:?3 Months * Images: * Sign off status: Completed true * Provider:?Rubi Casiano DPM Date:?0 09/24/2024 Generated for Julián serrano/Kendal/Yifan on:?09/27/2024 04:48 PM EDT History and Physical Notes * HPI (History of Present Illness) Category Sub-Category Detail Notes Category Not es At Risk footcare Pt States Last PCP Visit: Date: 5 Examination Category Sub-Category Detail Notes Category Not es Ingrown Nail INSPECTION: Reveals nail inc urvation, pain on palpation, groove hypertrophy, Medial nail border, , TA Dermatologic SKIN FINDINGS: Skin exam reveal s Keratotic lesion(s) located at, SUB MTH (s), 1, 5, B/L, Plantar Heel(s) B/L Vascular DP PULSES (B): 1/4, B/L PT [...] crumbly malodorous subungual debris, with pain on palpation,, TA, T1, T2, T3, T4, T5, T6, T7, T8, T9
--- OUTSIDE RECORDS SUMMARY | 2024-09-27 16:48 | XMS_ITS | Clinical Summary ---
Author Organization [employer] Address [address] [place] [address] [address] [place] [address] Care Team Providers Care Fixed Route Operator Name Role Phone Unavailable Primary Care Provider Unavailabl e Immunizations Name Administration Dates Next Due Influenza, seasonal, injectable, preservative fr ee 02/15/2024 Social History Tobacco Use Types Packs/Day Years Used Date Smoking Tobacco: Never Assessed Comments Unknown Sex and Gender Information Value Date Recorded Sex Assigned at Female 02/21/2024 3:01 PM EDT Legal Sex Female 3:48 PM EDT Gender Identity Female 02/21/2024 3:01 PM EDT Sexual Orientation Straight 02/21/2024 3: 03 PM EDT Plan of Treatment Health Maintenance Due Date Last Done Comments Depression Screening 1940 Lipid Panel 1940 SDOH Screening 1940 Alcohol/Substance Use Screening 1951 Tobacco Screening 1952 DTaP/Tdap/Td Vaccines (1 - Tdap) 1958 Zoster Vaccines (1 of 2) 1989 RSV Patients and Patients Aged 60 years or older (1 - 1-dose 75+ series) 2014 Pneumococcal Vaccine: 50+ Years (2 of 2 - PPSV23) 02/20/2017 02/21/2016 COVID-19 Vaccine ( season) 2024 07/01/2022, 08/31/2021, 02/26/2021, Additional history exists Influenza Vaccine Completed 02/15/2024, , 04/09/2022, Additional history exists HIB Vaccines Aged Out No longer eligi ble based on patient's age to complete this topic HPV Vaccines Aged Out No longer eligi ble based on patient's age to complete this topic Hepatitis A Vaccines Aged Out No long er eligible based on patient's age to complete this topic Hepatitis B Vaccines Aged Out No long er eligible based on patient's age to complete this topic IPV Vaccines Aged Out No longer eligi ble based on patient's age to complete this topic Meningococcal Vaccine Aged Out No ayaan german eligible based on patient's age to complete this topic RSV under 20 months Aged Out No longe r eligible based on patient's age to complete this topic Rotavirus Vaccines Aged Out No longer eligible based on patient's age to complete [place] [id number] [facility] MED CARE
== END ==
LOC: HO.CARD 14:49
PROVIDERS: Visit Provider Internal Medicine
DX: I48.0 Paroxysmal atrial fibrillation (principal)
CPT/HCPCS: 93242

== ENCOUNTER → 2024-09-27 14:51 | Outpatient (BNV) | payer MEDICARE, SELFPAY | PROVIDERS: Visit Provider Internal Medicine Cardiovascular Disease | DX: I47.10 Supraventricular tachycardia, unspecified (principal); I49.1 Atrial premature depolarization | CPT/HCPCS: 93244 ==

== ENCOUNTER 2024-10-10 09:38 | Outpatient (REF) | payer MEDICARE, SELFPAY ==
--- OUTSIDE RECORDS SUMMARY | 2024-10-10 10:16 | XMS_ITS ---
Author Organization [facility] [place] Address [address] [place] [address] Care Team Providers Care News Videotape Editor Name Role Phone Carleen Samson MD Primary Care Provider Unav stacie CasianoRubi Unavailable [phone] Allergies Allergen (clinical drug ingredient) Drug/Non Drug [...] Problem Acquired hammer toe of left foot (4863597560883634) Other hammer toe(s) (acquired), left foot (M20.42) Active confirmed Problem Localized, primary osteoarthritis of the ankle and/or foot (900009135) Arthritis of joint of lesser toe, left (M19.072) Active confirmed Problem Bilateral atherosclerosis of arteries of lower limbs (disorder) (86146436619349535 ) Atherosclerosis of enterprise artery of both lower extremities, with unspecified presence of clinical manifestation (I70.203) Active confirmed Q7(A), Q8(2B), Q9(1B,2 C) Vital Signs Height 5ft in 04/25/2024 Weight 118 lbs 04/25/2024 BMI 23.04 kg/m2 04/25/2024 Procedures Procedure Date Ordered Date Performed Result Body Sit e 84647-LVVMDXT NAIL, 6 OR MORE 04/25/2024 N/A 59188-HZTM SKIN LESIONS, OVER 4 04/25/2024 N/A Encounters Encounter Location Date Provider Diagnosis [facility] [address] [place] [address] 04/25/2024 Rubi Casiano Pain in right toe(s) M79.674 ; Onychomycosis B35.1 ; Pain in left toe(s) M79.675 ; Other hammer toe(s) (acquired), left foot M20.42 ; Atherosclerosis of enterprise artery of both lower extremities, with unspecified [...] foot (ICD-10 - M20.42) 04/25/2024 Atherosclerosis of enterprise artery of both lower extremities, with unspecified presence of clinical manifestation (ICD-10 - I70.203) Q7(A), Q8(2B), Q9(1B,2C) 04/25/2024 Tinea unguium (ICD-10 - B35.1) Plan Of Treatment Pending Test Test Name Order Date 03470-YKCJEZX NAIL, 6 OR MORE 04/25/2024 30230-LMGI SKIN LESIONS, OVER 4 04/25/20 24 Next Appt Details Follow Up: 3 Months, Reason: Provider Name:Rubi bennett, 12/24/2024 03:15:00 PM, [address] [place] [address], [id number], Procedure Notes * Category Sub-Category Detail Notes [...] use of a nail nipper and/or dremel-type grinder operator external tool, to a more viable healthy nail plate [...] to maintain effectiveness in symptomatic relief - 14003 Keratoma Treatment Parring or Cutting o f Benign Hyperkeratotic Lesion(s) (-57) More than 4 Lesions - The Benign hyperkeratotic lesions, (6_ ) in total, locations as stated and described in exam, were pared, and/or cut utilizing a sterile 15 blade, tissue nippers, and/or power dremel instrumentation - 59083, Q8 Progress Notes * Jennifer MCCRAY ADOB: [birth year] (83 yo F)Acc No.[id number]:04/25/2024 Progress Notes Patient:?Jennifer MCCRAY Provider:?Rubi Casiano DPM :1940???Age:83 Y???Sex:Female D ate:04/25/2024 Address: [address], [place], [id number] Pcp:Carleen Samson MD Subjective: * Chief Complaints: [...] - M20.42???Specify :Acute problem, Uncomplicated (3)???5.?Atherosclerosis of enterprise artery of both lower extremities, with unspecified presence of clinical manifestation - I70.203???Notes :Q7(A), Q8(2B), Q9(1B,2C)???6.?Tinea unguium - B35.1??? Plan: * Treatment: 2.?Tinea unguium?Procedure: 83083-SIZEKRO NAIL, 6 OR MORE * Procedures:?Debride Nail [...] use of a nail nipper and/or dremel-type grinder operator external tool, to a more viable healthy nail plate [...] to maintain effectiveness in symptomatic relief - 58703.?Keratoma Treatment:?Parring or Cutting of Benign Hyperkeratotic Lesion(s)??(-57) More than 4 Lesions - The Benign hyperkeratotic lesions, (6_ ) in total, locations as stated and described in exam, were pared, and/or cut utilizing a sterile 15 blade, tissue nippers, and/or power dremel instrumentation - 34516, Q8.? * Procedure Codes:?91829 DEBRI DE NAIL, 6 OR MORE, Modifiers: XS 60264 TRIM SKIN LESIONS, OVER 4, Modifiers: XS [...] their verbally confirmed satisfaction, Recommended/Applied [employer].?Fungal Nail Counseling:?The patient was counseled on the [...] Casiano DPM Date:?06/25/2023 Generated for Julián serrano/Kendal/Yifan on:?10/10/2024 10:16 AM EDT History and Physical Notes * HPI [...]
--- OUTSIDE RECORDS SUMMARY | 2024-10-10 10:17 | XMS_ITS | Encounter Summary ---
Author Organization [facility] Address [address] [place] [address] Care Team Providers Care Supply Coordinator Name Role Phone Carleen Samson MD Primary Care Provider [phone] Hernesto Dior MD Unavailable [phone] Encounter Details Date Type Department Care Team (Late st Contact Info) Description 12/10/2022 Scanned Document [facility] Emergency General Surgery [place] [address] [facility] [address] [place] [id number] Suzanne Mosquera APRN [address] [facility] [address] [place] [address] Social History Tobacco Use Types Packs/Day Years [...] on filedocumented in this encounter Care Teams Supply Coordinator Relationship Specialty [place] [address] [place] [address] PCP - General Internal Medicine 11/19/22 Hernesto Dior MD [address] [place] [address] Internal Medicine 01/24/23 documented as of this encounter
--- OUTSIDE RECORDS SUMMARY | 2024-10-10 10:17 | XMS_ITS | Patient Health Record ---
Author Organization [facility] Address [address] [place] [address] Care Team Providers Care Barrel Loader And Cleaner Name Role Phone Chapin LEVY, Carleen Primary Care Provider Unav stacie Rubi Casiano Unavailable [phone] Allergies Allergen (clinical drug ingredient) Drug/Non Drug [...] Problem Acquired hammer toe of left foot (9104917457655562) Other hammer toe(s) (acquired), left foot (M20.42) Active confirmed Problem Bilateral atherosclerosis of arteries of lower limbs (disorder) (14056425027122204 ) Atherosclerosis of [place]add[place] artery of both lower extremities, with unspecified presence of clinical manifestation (I70.203) Active confirmed Q7(A), Q8(2B), Q9(1B,2 C) Problem Localized, primary osteoarthritis of the ankle and/or foot (847371021) Arthritis of joint of lesser toe, left (M19.072) Active confirmed Vital Signs Height 5ft in 04/25/2024 Weight 118 lbs 04/25/2024 BMI 23.04 kg/m2 04/25/2024 Procedures Procedure Date Ordered Date Performed Result Body Sit e 43238-PVLEKLY NAIL, 6 OR MORE 04/25/2024 N/A 67897-UWEK SKIN LESIONS, OVER 4 04/25/2024 N/A 18203-JRIICSH NAIL, 6 OR MORE 09/24/2024 N/A 81664-Xwwendsl Plate 09/24/2024 N/A 06623-PNQQ SKIN LESIONS, OVER 4 09/24/2024 N/A Encounters Encounter Location Date Provider Diagnosis [address] [address] 04/25/2024 Rubi Casiano Pain in right toe(s) M79.674 ; Onychomycosis B35.1 ; Pain in left toe(s) M79.675 ; Other hammer toe(s) (acquired), left foot M20.42 ; Atherosclerosis of [place] artery of both lower extremities, with unspecified presence of clinical manifestation I70.203 and Tinea unguium B35.[address] [address] 09/24/2024 Rubi Casiano Atherosclerosis of [place] artery of both lower extremities, with unspecified presence of clinical manifestation I70.203 ; Tinea unguium B35.1 ; Pain in right toe(s) M79.674 ; Pain in left toe(s) M79.675 and Ingrown nail L60.[address] [address] 04/19/2024 Rubi Casiano Assessments Encounter Date Diagnosis (ICD Code) Assessment Notes Treatment Notes Treatment Clinical Notes Section Notes 04/25/2024 Pain in right toe(s) (ICD-10 - M79.674) 09/24/2024 Tinea unguium (ICD-10 - B35.1) 09/24/2024 Atherosclerosis of [place] artery of both lower extremities, with unspecified presence of clinical manifestation (ICD-10 - I70.203) Q7(A), Q8(2B), Q9(1B,2C) 09/24/2024 Pain in right toe(s) (ICD-10 - M79.674) 04/25/2024 Onychomycosis (ICD-10 - B35.1) 04/25/2024 Pain in left toe(s) (ICD-10 - M79.675) 04/25/2024 Other hammer toe(s) (acquired), left foot (ICD-10 - M20.42) 09/24/2024 Pain in left toe(s) (ICD-10 - M79.675) 04/25/2024 Atherosclerosis of [place] artery of both lower extremities, with unspecified presence of clinical manifestation (ICD-10 - I70.203) Q7(A), Q8(2B), Q9(1B,2C) 09/24/2024 Ingrown nail (ICD-10 - L60.0) 04/25/2024 Tinea unguium (ICD-10 - B35.1) Plan Of Treatment Pending Test Test Name Order Date 81716-VIQBOON NAIL, 6 OR MORE 04/25/2024 43016-XWKHNPW NAIL, 6 OR MORE 09/24/2024 28082-Zvhavanj Plate 09/24/2024 39953-DHEB SKIN LESIONS, OVER 4 09/25/19 25 32407-XQHT SKIN LESIONS, OVER 4 04/25/20 24 Next Appt Details Provider Name:Rubi Christinesally sabrina, 12/24/2024 03:15:00 PM, [address] [facility], [place], [address], Insurance Providers Payer Name Payer Address Payer Phone Subscriber Number Group Number Insured Name Patient Relationship to Insured Coverage Start Date Coverage End Date Medicare National [employer] [address] [place] [address] [id number] Jennifer Mccray Self - patient is the insured 4 [facility] [employer] [facility] [address] [place] [address] [id number] Jennifer Mccray Self - patient is the insured Medical (General) History Medical History History ICD Code Arthritis Diverticulitis High Blood Pressure Measles Mumps Chicken pox Transfusions Surgical History Surgery Date(Month/Year) tonsillectomy and adenoidectomy carpal tunnel surgery rotator cuff right shoulder ileostomy Mesenteric ischemia
--- OUTSIDE RECORDS SUMMARY | 2024-10-10 10:17 | XMS_ITS ---
Author Organization [facility] Address [address] [place] [address] Care Team Providers Care Scrub Woman Name Role Phone Carleen Samson MD Primary Care Provider Unav ailable Rubi Casiano Unavailable [phone] REASON FOR VISIT RUBBER TUBING SPLICER PPWK Entered Encounters Encounter Location Date Provider Diagnosis [address] [address] 04/19/2024 Rubi Casiano Plan Of Treatment Next Appt Details Provider Name:Rubi bennett, 12/24/2024 03:15:00 PM, [address] [place], [address], Progress Notes * Jennifer MCCRAYDOB: [birth year] (83 yo F)Acc No.[id number]:04/19/2024 Patient:?Jennifer MCCRAY :1940???Age:83 Y???Sex:Female Address:[place], [address] * true * Date:? Generated for Arti zach/Kendal/eTransmitting on:?10/10/2024 10:16 AM EDT
--- OUTSIDE RECORDS SUMMARY | 2024-10-10 10:17 | XMS_ITS | Clinical Summary ---
Author Organization [facility] Address [address] [place] [address] Care Team Providers Care Drafter Electrical Name Role Phone Carleen Samson MD Primary Care Provider Hernesto Dior MD Unavailable [phone] Allergies Active Allergy Reactions Criticality Noted Date [...] Patients (1 - 1-dose 75+ series) 2014 COVID-19 Vaccine ( season) 2024 07/01/2022, 08/31/2021, 02/26/2021, Additional history exists Influenza Vaccine 12/28/2024 04/09/2022 Hepatitis B Vaccines Aged Out No long er eligible based on patient's age to complete this topic Insurance MEDICARE PART A & B [place] [id number] Advance Directives * Full Code (Latest Code Status on File) Date Activated Date Inactivated Comments 11/18/2022 4:22 AM Care Teams Drafter Electrical Relationship Specialty [place] [address] [place] [address] PCP - General Internal Medicine 11/19/22 Hernesto Dior MD [address] [place] [address] Internal Medicine 01/24/23
--- OUTSIDE RECORDS SUMMARY | 2024-10-10 10:17 | XMS_ITS | Encounter Summary ---
Author Organization [facility] Address [address] [place] [address] Care Team Providers Care Acid Concentrator Name Role Phone Carleen Samson MD Primary Care Provider [phone] Hernesto Dior MD Unavailable [phone] Encounter Details Date Type Department Care Team (Late st Contact Info) Description 12/09/2022 Scanned Document [facility] Emergency General Surgery [place] [address] [facility] [address] [place] [address] Social History Tobacco Use Types [...] on filedocumented in this encounter Care Teams Acid Concentrator Relationship Specialty Start Date End Date Carleen Samson MD [address] [address] PCP - General Internal Medicine 11/19/22 Hernesto Dior MD [address] [address] Internal Medicine 01/24/23 documented as of this encounter
--- OUTSIDE RECORDS SUMMARY | 2024-10-10 10:17 | XMS_ITS ---
Author Organization [facility] [place] Address [address] [place] [address] Care Team Providers Care Senior Game Advisor Name Role Phone Carleen Samson MD Primary Care Provider Unav stacie Rubi Casiano Unavailable [phone] Allergies Allergen (clinical drug ingredient) Drug/Non Drug [...] Ordered Date Performed Result Body Sit e 46084-SLKWFUB NAIL, 6 OR MORE 09/24/2024 N/A 37325-Jndphxzl Plate 09/24/2024 N/A 57947-VZFN SKIN LESIONS, OVER 4 09/24/2024 N/A Encounters Encounter Location Date Provider Diagnosis [facility] [place] [address] [place] [address] 09/24/2024 Rubi Casiano Atherosclerosis of [place] cliff artery of both lower extremities, with unspecified presence of clinical manifestation I70.203 ; Tinea unguium B35.1 ; Pain in right toe(s) M79.674 ; Pain in left toe(s) M79.675 and Ingrown nail L60.0 Assessments Encounter Date Diagnosis (ICD Code) Assessment Notes Treatment Notes Treatment Clinical Notes Section Notes 09/24/2024 Atherosclerosis of [place] cliff artery of both lower extremities, with unspecified presence of clinical manifestation (ICD-10 - I70.203) Q7(A), Q8(2B), Q9(1B,2C) 09/24/2024 Tinea unguium (ICD-10 - B35.1) 09/24/2024 Pain in right toe(s) (ICD-10 - M79.674) 09/24/2024 Pain in left toe(s) (ICD-10 - M79.675) 09/24/2024 Ingrown nail (ICD-10 - L60.0) Plan Of Treatment Pending Test Test Name Order Date 00518-BWIMNNX NAIL, 6 OR MORE 09/24/2024 29219-Veexagwe Plate 09/24/2024 11535-MSSM SKIN LESIONS, OVER 4 09/25/19 25 Next Appt Details Follow Up: 3 Months, Reason: Provider Name:Rubi bennett, 12/24/2024 03:15:00 PM, [address] [place] [address], [address], Procedure Notes * Category Sub-Category Detail Notes [...] was recommended for pain or discomfort - 46650 Anesthesia was accomplished TOP ICALLY with Lidocaine [...] of a nail nipper and/or dremel-type rubber grinder, to a more viable healthy nail [...] to maintain effectiveness in symptomatic relief - 00026 Keratoma Treatment Parring or Cutting o f [...] instrumentation by the physician of record - 20166 Progress Notes * Jennifer MCCRAY ADOB: [birth year] (84 yo F)Acc No.[id number]:09/24/2024 Progress Note Patient:?Jennifer MCCRAY Provider:?Rubi Casiano DPM :1940???Age:84 Y???Sex:Female D ate:09/24/2024 Address:[address] [place], [place] [id number] Pcp:Carleen Samson MD Subjective: * Chief Complaints: [...] Assessment: 1.?Tinea unguium - B35.1???2 .?Atherosclerosis of [place] artery of both lower extremities, with unspecified presence of clinical manifestation - I70.203 (Primary)???Notes :Q7(A), Q8(2B), Q9(1B,2C)???3.?Pain in right toe(s) - M79.674???4.?Pain in left toe(s) - M79.675???5.?Ingrown nail - L60.0???Specify :Medial nail border, TA??? Plan: * Treatment: 2.?Tinea unguium?Procedure: 95886-OOLSUKB NAIL, 6 OR MORE 3.?Ingrown nail?Procedure: 23827-Hvrdzwjt Plate * Procedures:?Debride Nail 6-10:?Nail debridement?Due to [...] of a nail nipper and/or dremel-type rubber grinder, to a more viable healthy nail [...] to maintain effectiveness in symptomatic relief - 44888.?Keratoma Treatment:?Parring or Cutting of Benign Hyperkeratotic Lesion(s)?(-57) [...] instrumentation by the physician of record - 71019.?Nail Avulsion:?Location?Medial nail border, TA.?Anesthesia?was accomplished TOPICALLY with [...] was recommended for pain or discomfort - 33756.? * Procedure Codes:?09903 DEBRI DE NAIL, 6 OR MORE, Modifiers: XS 95971 Avulsion Plate, Modifiers: XS , LP68486 TRIM SKIN LESIONS, OVER 4, Modifiers: XS , Q8 * Follow Up:?3 Months * Images: * Sign off status: Completed true * Provider:?Rubi Casiano DPM Date:?0 09/24/2024 Generated for Julián serrano/Kendal/Yifan on:?10/10/2024 10:17 AM EDT History and Physical Notes * [...]
--- OUTSIDE RECORDS SUMMARY | 2024-10-10 10:17 | XMS_ITS | Data Portability ---
Author Organization [facility], Main Office Address [address] [facility], [address] [place] [address] Care Team Providers Care Strategic Accounts Manager Name Role Phone LYNN BONDS 2ND FLOOR OTHER [phone] FLORY BROWN Primary Care Provider Assessment No [...] Recorded Time Surgical incision wound of skin [id number] Active 2022 abdomen HUA GARCIA NP [address] , [address], [place], [address], [facility] 3 10:42:08 Atrial fibrillati on 32473317 Active 2022 HUA GARCIA NP [address] [facility], [address], [place], [address], [facility] 3 10:53:24 Essential hypertensi on 45831965 Active 2022 HUA GARCIA NP [address] [facility], [address], [place], [address], [facility] 3 10:53:28 Hyperlipid emia 57358431 Active 2022 HUA GARCIA NP [address] , [address], [place], [address], [facility] 3 10:53:37 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 519490731 Active 2022 HUA GARCIA NP [address] [facility], [address], [place], [address], [facility] 3 10:53:45 Asthenia 57007525 Active 2022 HUA GARCIA NP [address] [facility], [address], [place], [address], [facility] 3 10:54:04 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 Medical Equipment None Reported. Allergies Allergen ID Allergen Name Allergen Category Reaction Reaction Severity Criticality Documentation Date Start Date Code Code System Note Provider Name and Address Organization Details Recorded Time 34657 lactose food,medi cation Not available Not available Not available 11/29/2022 6211 RxNorm HUA GARCIA NP [address] [facility], [address], [place], [address], [facility] 3 10:38:55 35572 amoxicill in medicatio n Not available Not available Not available 11/29/2022 723 RxNorm HUA GARCIA NP [address] [place] [address], [address], [place], [address], [facility] 3 10:39:01 Medications Name Sig Start Date [...] mm[Hg] 55 mm[Hg] HUA GARCIA NP [address] [facility], [address], [place], [address], [facility] 3 13:17:43 Date Recorded Body height Heart rate Respiratory rate Body temperature Oxygen saturation Oxygen saturation in Arterial blood by Pulse oximetry Systolic blood pressure Diastolic blood pressure Provider Name and Address Organization Details Last Updated DateTime 3 152.4 cm 82 /min 16 /min 98.3 [degF] 98 % 98 % 122 mm[Hg] 64 mm[Hg] HUA GARCIA NP [address] [facility], [facility] [address], [place], [address], [facility] 3 11:19:12 Date Recorded Body height Heart rate Respiratory rate Body temperature Oxygen saturation Oxygen saturation in Arterial blood by Pulse oximetry Systolic blood pressure Diastolic blood pressure Provider Name and Address Organization Details Last Updated DateTime 3 152.4 cm 88 /min 16 /min 97.8 [degF] 97 % 97 % 132 mm[Hg] 60 mm[Hg] HUA GARCIA NP [address] [facility], [facility] [address], [place], [address], [facility] 3 14:02:39 Date Recorded Body height Heart rate Respiratory rate Body temperature Oxygen saturation Oxygen saturation in Arterial blood by Pulse oximetry Systolic blood pressure Diastolic blood pressure Provider Name and Address Organization Details Last Updated DateTime 3 152.4 cm 80 /min 16 /min 98.2 [degF] 96 % 96 % 120 mm[Hg] 55 mm[Hg] HUA GARCIA NP [address] [facility], [facility] [address], [place], [address], [facility] 3 10:10:54 Date Recorded Body height Heart rate Respiratory rate Body temperature Oxygen saturation Oxygen saturation in Arterial blood by Pulse oximetry Systolic blood pressure Diastolic blood pressure Provider Name and Address Organization Details Last Updated DateTime 3 152.4 cm 82 /min 16 /min 98.7 [degF] 98 % 98 % 140 mm[Hg] 87 mm[Hg] HUA GARCIA NP [address] [facility], [address], [place], [address], [facility] [employer] 3 10:37:32 Social History Question Answer Notes LastModified by Organization Details LastModified Time Tobacco Smoking Status Never Smoker HUA GARCIA NP [address] [facility], [address], [place], [address], [facility] [employer] 11/29/2022 10:40:01 Do You Have An Advance Directive? Yes Information not available 11/29/2022 What Is Your Code Status? Full Code Information not available 11/29/2022 Where Do You Live? SingleLevelHouse Home Alone, 5 [address] Information not available 12/07/2022 Legal Guardian? No Information not available 12/07/2022 Do You Have A Medical Power Of [employer]? Yes Information not available 12/07/2022 What Was [...] Was Too Independent Information not available 12/07/2022 Has Tobacco Cessation Counseling Been Provided? No N/a As Pt Is Non-smoker Information not available 12/07/2022 Sex: Unknown Functional Status Question Answer Note LastModified by Organizat ion Details LastModified Time How many times per week do you consume alcohol? 3-4 times per week Information not available 12/07/2022 Do you use any illicit or recreational drugs? No Information not available 11/29/2022 Do you or have you ever used any other forms of tobacco or nicotine? No Information not available 12/07/2022 What is your level of alcohol consumption? Occasional Information not available 11/29/2022 Mental Status None recorded. Family History Nothing Reported Notes:n/c Medical History No medical history recorded. Gynecological HistoryNo gynecological history recorded. Obstetrics History GPAL:G 0 P 0 0 0 0 Immunizations Vaccine Type Date Status Note Provider Nathan selby and Address Organization Details Recorded Time Influenza, adjuvanted, quadrivalent, PF 04/09/2022 [facility] 13:23:23 Past Encounters Encounter ID Performer Location Encounter Start Date Encounter Closed Date Diagnosis/Indication Diagnosis SNOMED-CT Code Diagnosis ICD10 Code Diagnosis Note [id number] HUA GARCIA NP [address] [address] 11/29/2022 10:23:07 12/08/2022 16:44:33 Surgical incision wound of skin 9273167822 00 R23.8 monitor for any signs of infectionm onitor BSencourag e cough, deep breath, ispirofoll owup with surgeon as scheduled Atrial fibrillation 4943 6004 I48.91 diltiazem 30 mg p0rigjmqhl s 5 mg bidmonitor heart rate Essential hypertension 02488639 I10 monitor bp Hyperlipidemia 98017144 E78.5 atorvastat in 40 mg daily 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 600481763 E73.9 lactaid tid Asthenia 46582924 R53.1 PT OT eval and treatfall precaution frequent safety checks [id number] HUA GARCIA NP [address] [address] 12/03/2022 14:22:54 12/09/2022 08:14:32 Surgical incision wound of skin 3599844728 00 R23.8 monitor for any signs of infectionm onitor BSencourag e cough, deep breath, ispirofoll owup with surgeon as scheduledp robiotic daily 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 487178562 E73.9 lactaid tidensure clear tid for snacks [id number] HUA GARCIA NP [address] [address] 12/06/2022 10:51:14 12/09/2022 10:25:04 Surgical incision wound of skin 6081293339 00 R23.8 monitor for any signs of infectionm onitor BSchange dressing per surgeon recommenda tionsencou rage cough, deep breath, ispirofoll owup with surgeon as scheduledp robiotic daily Essential hypertension 34787522 I10 monitor bp [id number] MD LYNN Gipson [address] [address] 12/07/2022 13:07:44 12/14/2022 15:50:56 Essential hypertension 75914666 I10 BP in good control on diltiazem 30 mg q 6 hrsMonitor BP and labs. 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 Atrial fibrillation 4943 6004 I48.0 Rate in good control on meds as above.Cont inue eliquis 5 mg BID for AC.Monitor HR and bleeding risk. Hyperlipidemia 95163065 E78.49 Continue atorvastat in 40 mg qdMonitor labs as outpt. Asthenia 12888289 R53.1 Very deconditio gibson.Needs PT/OT for strengthen ing, balance, gait training, safety and function.C ontinue fall precaution s.Monitor for safety. 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 Recovering well.Aminah nue tramadol 25 mg q 6 hrs prn and APAP 650 mg q 6 hrs prnContinu e apixaban 5 mg BID for DVT prophylaxi s (already on this for Afib).Cont inue wound care as ordered.Co ntinue Ensure clear TID for wound healing.F/ U with surgeon as planned (appt on 12/08). Occlusion of superior mesenteric artery 743402036 K55.011 As above. Loose stool 226056678 R1 9.5 Improved.C ontinue acidophilu s qdMonitor bowel function [id number] HUA GARCIA NP [address] [address] 12/10/2022 11:17:32 12/15/2022 13:24:00 Surgical incision wound of skin 5003739244 00 R23.8 monitor for any signs of infectionm onitor BSchange dressing per surgeon recommenda tions-bide ncourage cough, deep breath, ispirofoll owup with surgeon as scheduledp robiotic dailyAVOID laxatives Asthenia 50338011 R53.1 PT OT eval and treatfall precaution frequent safety checks [id number] HUA GARCIA NP LYNN BONDS [address] [place] [address] 12/13/2022 13:35:17 12/15/2022 13:45:31 Surgical incision wound of skin 8073203819 00 R23.8 monitor for any signs of infectionm onitor BSchange dressing per surgeon recommenda tions-bide ncourage cough, deep breath, ispirofoll owup with surgeon as scheduledp robiotic dailyAVOID laxatives Asthenia 74164242 R53.1 PT OT eval and treatfall precaution frequent safety checks [id number] HUA GARCIA NP LYNN BONDS [address] [place] [address] 12/15/2022 13:02:27 12/17/2022 16:02:54 Surgical incision wound of skin 9817822870 00 R23.8 monitor for any signs of infectionm onitor BSchange dressing per surgeon recommenda tions-bide ncourage cough, deep breath, ispirofoll owup with surgeon as scheduledp robiotic dailyAVOID laxatives Asthenia 03655250 R53.1 PT OT eval and treatfall precaution frequent safety checks [id number] HUA GARCIA NP LYNN BONDS [address] [place] [address] 12/20/2022 10:57:01 12/22/2022 14:14:27 Surgical incision wound of skin 3193768798 00 R23.8 monitor for any signs of infectionm onitor BSchange dressing per surgeon recommenda tions-bide ncourage cough, deep breath, ispirofoll owup with surgeon as scheduledp robiotic dailyAVOID laxatives Asthenia 15970614 R53.1 PT OT eval and treatfall precaution frequent safety checks [id number] HUA GARCIA NP LYNN CAMMIE [address] [place] [address] 12/24/2022 13:44:46 12/28/2022 14:09:58 Surgical incision wound of skin 4081738347 00 R23.8 monitor for any signs of infectionm onitor BSchange dressing per surgeon recommenda tions-bide ncourage cough, deep breath, ispirofoll owup with surgeon as scheduledp robiotic dailyAVOID laxatives Atrial fibrillation 4943 6004 I48.0 diltiazem 30 mg y6xyqtqacc s 5 mg bidmonitor heart rate Asthenia 03776374 R53.1 PT OT eval and treatfall precaution frequent safety checks [id number] HUA FLEX GARCIA [address] [address] 12/27/2022 10:10:05 12/29/2022 10:56:04 Gastroesophageal reflux disease without esophagitis 596771354 K21.9 omeprazole 20 mg bid Surgical i ncision wound of skin 3496038677 00 R23.8 monitor for any signs of infectionm onitor BSencourag e cough, deep breath, ispirofoll owup with surgeon as scheduled Atrial fibrillation 4943 6004 I48.91 diltiazem 30 mg t9waifufde s 5 mg bidmonitor heart rate Essential hypertension 58792695 I10 monitor bp Hyperlipidemia 78771114 E78.5 atorvastat in 40 mg daily 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 758280030 E73.9 lactaid tid Asthenia 78575253 R53.1 PT OT eval and treatfall precaution frequent safety checks [id number] HUA GARCIA NP [address] [address] 12/29/2022 10:20:31 12/31/2022 14:50:04 Gastroesophageal reflux disease without esophagitis 917730424 K21.9 omeprazole 20 mg bid Surgical i ncision wound of skin 2480508355 00 R23.8 monitor for any signs of infectionm onitor BSencourag e cough, deep breath, ispirofoll owup with surgeon as scheduled Atrial fibrillation 4943 6004 I48.91 diltiazem 30 mg d4aepoyzdx s 5 mg bidmonitor heart rate Essential hypertension 56114029 I10 monitor bp Hyperlipidemia 64889519 E78.5 atorvastat in 40 mg daily 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 055648840 E73.9 lactaid tid Asthenia 72926715 R53.1 PT OT eval and treatfall precaution frequent safety checks Thoracic back pain 07772 8004 M54.6 lidoderm patch dailytrama dol 25 [...] [place] Jennifer A Marceau [id number] 1 Jennifer Marceau 12/15/2022 2 [place] [id number] Jennifer Marceau [id number] Jennifer Marceau 12/20/2022 1 [place] Jennifer A Marceau [id number] 1 Jennifer Marceau 12/20/2022 2 [place] [id number] Jennifer Marceau [id number] Jennifer Marceau 12/24/2022 1 [place] Jennifer A Marceau [id number] 1 Jennifer Marceau 12/24/2022 2 [place] [id number] Jennifer Marceau [id number] Jennifer Marceau 12/27/2022 1 [place] Jennifer A Marceau [id number] 1 Jennifer Marceau 12/27/2022 2 [place] [id number] Jennifer Marceau [id number] Jennifer Marceau 12/29/2022 1 [place] Jennifer A Marceau [id number] 1 Jennifer Marceau 12/29/2022 2 [place] [id number] Jennifer Marceau [id number] Jennifer Marceau Notes Date Note Type Note Provider Name and Address Organization Details Recorded Time 12/15/2022 text/html seen today for a cute rounding visit, CAox3 sitting up in bed, lungs clear, abd healing slowly, steri strips in place, ambulating with PT and walker, she likes to stay in her room HUA GRIPPIN, BRAND ANALYST [address] [facility], [address], [place], [address], [facility] 12/15/2022 13:19:16 12/20/2022 text/html seen today for a cute rounding visit, CAOx3 sitting up in bed, ate well at breakfast, abd wound healing slowly, pt reports she is feeling better and participating with PT, ambulating with walker, bathroom with assist HUA GARCIA NP [address] [facility], [address], [place], [address], [facility] 12/20/2022 11:21:34 12/24/2022 text/html seen today for a cute rounding visit, CAOx3 in bed, she does get oob for PT, dressing dry intact, saw surgeon and it is healing well, good po intake HUA GARCIA NP [address] [facility], [address], [place], [address], [facility] 12/24/2022 14:05:34 12/27/2022 text/html seen today for 3 0 day routine rounding visit-82 yof admitted to for rehab after presenting to the hospital, she was xferred to [facility] with complaint of 5 days of [...] participating with PT HUA GARCIA NP [address] [facility], [address], [place], [address], [facility] 12/27/2022 11:22:49 12/29/2022 text/html seen today for discharge summary- 82 yof admitted to for rehab after presenting to the hospital, she was xferred to [facility] with complaint of 5 days of [...] drinking fairly well HUA GARCIA NP [address] [facility], [address], [place], [address], [facility] 12/29/2022 10:41:28 OBGyn Episode No OBEpisode recorded.
== END 2024-10-10 09:39 | disposition home or self-care (01) ==
LOC: HO.MAMMO 09:38
PROVIDERS: PCP Internal Medicine; Visit Provider Internal Medicine
DX: Z12.31 Encounter for screening mammogram for malignant neoplasm of breast (principal)
CPT/HCPCS: 77063; 77067

== ENCOUNTER → 2024-10-10 09:45 | Outpatient (BNV) | payer MEDICARE, SELFPAY | PROVIDERS: PCP Internal Medicine; Visit Provider Internal Medicine | DX: Z12.31 Encounter for screening mammogram for malignant neoplasm of breast (principal) | CPT/HCPCS: 77063; 77067 ==

== ENCOUNTER 2024-10-17 14:14 | Outpatient (AMB) | payer MEDICARE, SELFPAY ==
--- NOTE | 2024-10-17 14:19 | MHC.OFFVIS ---
Vital Signs 10/17/24 14:21 Height 4 ft 11 in Weight 123 lb 3.814 oz BMI 24.9 BP 120/52 L Blood Pressure Location Lt brachial Position Sitting Pulse 60 Pulse Source Pulse Oximeter Intake Visit Reasons: 6m follow up/holter/labs Ct Scan Tech Required: No Accompanied by: Self / Same As Patient Allergies amoxicillin Allergy (Verified 03/29/23 14:44) Rash lactose Adverse Reaction (Severe, Verified 03/29/23 14:44) upset stomach Medication List - Last Reconciled 10/17/24 by Hernesto Dior MD apixaban 2.5 mg PO BID 90 days atorvastatin 40 mg PO DAILY diltiazem HCl CD 180 mg PO DAILY magnesium hydroxide (Milk of Magnesia) 30 mL PO Q4-6H potassium chloride ER 20 mEq PO DAILY HPI Comments Details: Jennifer returns for follow-up regarding atrial fibrillation. Records reviewed from 2022. She was admitted for gastroenteritis type symptoms. 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 This led to bowel ischemia and it appears that she got transferred to [facility] where she went surgical procedures and then eventually discharged. Patient states that she had atrial fibrillation diagnosis around 2017. She has been on diltiazem. Initially she took Eliquis for few months but in 2018 was apparently stopped and patient states that it was due to the fact that she had no further atrial fibrillation. Any case, after current hospitalization she has been put back on Eliquis. Overall, she is doing quite good. No new concerns. No cardiac symptoms at all. [facility] Medical History (Updated 12/30/22 @ 14:37 by Hernesto Dior MD) Embolus of superior mesenteric artery PAF (paroxysmal atrial fibrillation) HTN (hypertension) Surgical History History of tonsillectomy History of rotator cuff surgery History of intestinal surgery Family History Father Cancer Mother Lung cancer Social History Household Members: None Household Members Other:: self Housing: House Do you presently have visiting nurse or other home services: No Alcohol intake: current Alcohol intake frequency: a few times a month Alcohol type: beer, wine and hard liquor Patient Tobacco Use Status: Never used Tobacco service: No Review of Systems Const Denies chills, Denies fatigue, Denies fever(s), Denies frequent falls, Denies weakness, Denies weight gain and Denies weight loss ENT Denies dizziness Card Denies chest pain, Denies leg edema, Denies lightheadedness, Denies palpitations, Denies dyspnea and Denies dyspnea on exertion Resp Denies cough, Denies dyspnea and Denies dyspnea on exertion GI Denies hematochezia Musc Denies abnormal gait, Denies muscle weakness, Denies numbness, Denies radiating pain into limb and Denies tingling Neuro Denies abnormal gait, Denies dizziness, Denies frequent falls, Denies numbness, Denies tingling and Denies weakness Endo Denies fatigue and Denies palpitations Physical Exam Vital Signs: Last Vital Signs Pulse 60 10/17/24 14:21 BP 120/52 L 10/17/24 14:21 BMI result Body Mass Index 24.9 Const General: comfortable and no acute distress Orientation/consciousness: patient oriented x3 HEENT Other: Unremarkable Head: Yes normal to inspection Neck Neck: Yes normal visual inspection Chest Chest palpation & inspection: normal inspection of the chest Resp Auscultation: clear to auscultation bilaterally Cardio Palpation: normal PMI Heart sounds: S1 normal heart sound present, S2 normal heart sound present, no gallops, no murmurs and no rubs GI Palpation (GI): Soft to palpation Back/Spine/Pelvis Other: unremarkable Skin General skin exam: no rashes or lesions noted Neuro General: patient oriented x3 Extrem General: Yes normal to inspection Psych Mental Status: mental status grossly normal Assessment & Plan Assessment & Plan (1) PAF (paroxysmal atrial fibrillation): Code(s): I48.0 - Paroxysmal atrial fibrillation Category: Medical (2) Embolus of superior mesenteric artery: Code(s): K55.059 - Acute (reversible) ischemia of intestine, part and extent unspecified Category: Medical Plan Cardiac studies summarized. EKG with underlying sinus rhythm and right bundle-branch block pattern. Echocardiogram from [facility] with LVEF of 76%. RV systolic function normal. No significant valvular issues and there was no cardiac source of embolism. Myocardial perfusion study from 2017 showed normal perfusion-at [facility]. In the Holter monitor, underlying rhythm is sinus with an average rate of 64/Min. Few short runs of SVT. Overall, history of paroxysmal atrial fibrillation with SMA embolus. Continue diltiazem CD without changes. Continue long-term anticoagulation. She has a history of alcohol excess but she states that she is not doing it as much these days. Relationship with atrial fibrillation discussed. We will follow up in one year. In the interim, she will call with any concerns. Discussion Notes We reviewed the patient's current health status, focusing on vascular health and medication management. The patient is on Diltiazem and Eliquis, with the Eliquis dose reduced given her weight. The importance of continued adherence to her medication regime was emphasized. The patient did not note any adverse effects from the medications, and no changes to her regimen were required at this time. Any significant symptoms should prompt an immediate follow-up. Patient was informed and verbally consented to the use of an ambient scribe for clinic note documentation during this visit. Patient Instructions: - Continue taking Diltiazem and Eliquis as prescribed. - Monitor for any new or worsening symptoms. - Keep track of alcohol intake and aim for moderation. - Contact us if you experience any significant changes in health or symptoms. - Remember to follow your medication plan as discussed. Coding Level of Care Code Est Pt Level 4 (05124) Complex EM visit Add On G2211 Diagnoses PAF (paroxysmal atrial fibrillation) I48.0 Embolus of superior mesenteric artery K55.059
[2024-10-17 14:21] VITALS: BP 120/52; PULSE 60; BMI 24.9
--- OUTSIDE RECORDS SUMMARY | 2024-10-17 14:37 | XMS_ITS ---
Author Organization [facility] [place] Address [address] [place] [address] Care Team Providers Care Hook And Eye Machine Operator Name Role Phone Carleen Samson MD Primary Care Provider Unav stacie CasianoRubi Unavailable [phone] Allergies Allergen (clinical drug ingredient) Drug/Non Drug [...] Problem Acquired hammer toe of left foot (3023327046309819) Other hammer toe(s) (acquired), left foot (M20.42) Active confirmed Problem Localized, primary osteoarthritis of the ankle and/or foot (888807925) Arthritis of joint of lesser toe, left (M19.072) Active confirmed Problem Bilateral atherosclerosis of arteries of lower limbs (disorder) (71725514545478528 ) Atherosclerosis of [place] artery of both lower extremities, with unspecified presence of clinical manifestation (I70.203) Active confirmed Q7(A), Q8(2B), Q9(1B,2 C) Vital Signs Height 5ft in 04/25/2024 Weight 118 lbs 04/25/2024 BMI 23.04 kg/m2 04/25/2024 Procedures Procedure Date Ordered Date Performed Result Body Sit e 86918-YDITOPP NAIL, 6 OR MORE 04/25/2024 N/A 95164-QXPY SKIN LESIONS, OVER 4 04/25/2024 N/A Encounters Encounter Location Date Provider Diagnosis [facility] [place] [address] [place] [address] 04/25/2024 Rubi Casiano Pain in right toe(s) M79.674 ; Onychomycosis B35.1 ; Pain in left toe(s) M79.675 ; Other hammer toe(s) (acquired), left foot M20.42 ; Atherosclerosis of [place] artery of both lower extremities, with unspecified [...] foot (ICD-10 - M20.42) 04/25/2024 Atherosclerosis of [place] artery of both lower extremities, with unspecified presence of clinical manifestation (ICD-10 - I70.203) Q7(A), Q8(2B), Q9(1B,2C) 04/25/2024 Tinea unguium (ICD-10 - B35.1) Plan Of Treatment Pending Test Test Name Order Date 78547-RYNEUAN NAIL, 6 OR MORE 04/25/2024 43976-LFHI SKIN LESIONS, OVER 4 04/25/20 24 Next Appt Details Follow Up: 3 Months, Reason: Provider Name:Rubi bennett, 12/24/2024 03:15:00 PM, [address] [place] [address], [phone], Procedure Notes * Category Sub-Category Detail Notes [...] use of a nail nipper and/or dremel-type jig grinder set up operator, to a more viable healthy nail [...] to maintain effectiveness in symptomatic relief - 52672 Keratoma Treatment Parring or Cutting o f Benign Hyperkeratotic Lesion(s) (-57) More than 4 Lesions - The Benign hyperkeratotic lesions, (6_ ) in total, locations as stated and described in exam, were pared, and/or cut utilizing a sterile 15 blade, tissue nippers, and/or power dremel instrumentation - 49153, Q8 Progress Notes * Jennifer MCCRAY ADOB: [birth year] (83 yo F)Acc No.[id number]:04/25/2024 Progress Notes Patient:?Jennifer MCCRAY Provider:?Rubi Casiano DPM :1940???Age:83 Y???Sex:Female D ate:04/25/2024 Address: [address], [place], [id number] Pcp:Carleen Samson MD Subjective: * Chief Complaints: [...] - M20.42???Specify :Acute problem, Uncomplicated (3)???5.?Atherosclerosis of [place] artery of both lower extremities, with unspecified presence of clinical manifestation - I70.203???Notes :Q7(A), Q8(2B), Q9(1B,2C)???6.?Tinea unguium - B35.1??? Plan: * Treatment: 2.?Tinea unguium?Procedure: 65796-OZHFSAR NAIL, 6 OR MORE * Procedures:?Debride Nail [...] use of a nail nipper and/or dremel-type jig grinder set up operator, to a more viable healthy nail [...] to maintain effectiveness in symptomatic relief - 15053.?Keratoma Treatment:?Parring or Cutting of Benign Hyperkeratotic Lesion(s)??(-57) More than 4 Lesions - The Benign hyperkeratotic lesions, (6_ ) in total, locations as stated and described in exam, were pared, and/or cut utilizing a sterile 15 blade, tissue nippers, and/or power dremel instrumentation - 30187, Q8.? * Procedure Codes:?65065 DEBRI DE NAIL, 6 OR MORE, Modifiers: XS 56193 TRIM SKIN LESIONS, OVER 4, Modifiers: XS [...] their verbally confirmed satisfaction, Recommended/Applied Xenia Mccullough Currency Exchange Specialist.?Fungal Nail Counseling:?The patient was counseled on the [...] Casiano DPM Date:?06/25/2023 Generated for Julián serrano/Kendal/Yifan on:?10/17/2024 02:36 PM EDT History and Physical Notes * [...]
--- OUTSIDE RECORDS SUMMARY | 2024-10-17 14:37 | XMS_ITS | Encounter Summary ---
Author Organization [facility] Address [address] [place] [address] Care Team Providers Care Senior Security Architect Name Role Phone Carleen Samson MD Primary Care Provider [phone] Hernesto Dior MD Unavailable [phone] Encounter Details Date Type Department Care Team (Late st Contact Info) Description 12/09/2022 Scanned Document [facility] [place] [address] [facility] [address] [place] [address] Social History Tobacco Use Types [...] on filedocumented in this encounter Care Teams Senior Security Architect Relationship Specialty Start Date End Date Carleen Samson MD [address] [address] PCP - General Internal Medicine 11/19/22 Hernesto Dior MD [address] [address] Internal Medicine 01/24/23 documented as of this encounter
--- OUTSIDE RECORDS SUMMARY | 2024-10-17 14:37 | XMS_ITS | Clinical Summary ---
Author Organization [facility] Address [address] [place] [address] Care Team Providers Care Senior Operations Manager Name Role Phone Carleen Samson MD Primary Care Provider Hernesto Dior MD Unavailable [phone] Allergies Active Allergy Reactions Criticality Noted Date [...] topic Insurance MEDICARE PART A & B [place] [id number] Advance Directives * Full Code (Latest Code Status on File) Date Activated Date Inactivated Comments 11/18/2022 4:22 AM Care Teams Senior Operations Manager Relationship Specialty [place] [address] [place] [address] PCP - General Internal Medicine 11/19/22 Hernesto Dior MD [address] [place] [address] Internal Medicine 01/24/23
--- OUTSIDE RECORDS SUMMARY | 2024-10-17 14:37 | XMS_ITS | Encounter Summary ---
Author Organization [facility] Address [address] [place] [address] Care Team Providers Care Sulfuric Acid Plant Operator Name Role Phone Carleen Samson MD Primary Care Provider [phone] Hernesto Dior MD Unavailable [phone] Encounter Details Date Type Department Care Team (Late st Contact Info) Description 12/10/2022 Scanned Document [facility] Emergency General Surgery [place] [address] [facility] [address] [place] [id number] Suzanne Mosquera APRN [address] [facility] [address] [place] [address] Social History Tobacco Use Types Packs/Day Years [...] on filedocumented in this encounter Care Teams Sulfuric Acid Plant Operator Relationship Specialty [place] [address] [place] [address] PCP - General Internal Medicine 11/19/22 Hernesto Dior MD [address] [place] [address] Internal Medicine 01/24/23 documented as of this encounter
--- OUTSIDE RECORDS SUMMARY | 2024-10-17 14:37 | XMS_ITS | Clinical Summary ---
Author Organization [employer] Address [address] [place] [address] [address] [place] [address] Care Team Providers Care Nurse Midwife Name Role Phone Unavailable Primary Care Provider Unavailabl e Immunizations Immunization Administration Dates Next Due Influenza, seasonal, injectable, [...] patient's age to complete this topic Meningococcal B Vaccine Aged Out No l onger eligible based on patient's age to complete this topic Meningococcal Vaccine Aged Out No ayaan german eligible based on patient's age to complete this topic RSV under 20 months Aged Out No longe r eligible based on patient's age to complete this topic Rotavirus Vaccines Aged Out No longer eligible based on patient's age to complete this topic Insurance MEDICARE [facility]
--- OUTSIDE RECORDS SUMMARY | 2024-10-17 14:37 | XMS_ITS ---
Author Organization [facility] [place] Address [address] [place] [address] Care Team Providers Care Salt Washer Harvesting Station Name Role Phone Carleen Samson MD Primary Care Provider Unav stacie Rubi Casiano Unavailable [phone] Allergies Allergen (clinical drug ingredient) Drug/Non Drug [...] Ordered Date Performed Result Body Sit e 48043-TAZEFKG NAIL, 6 OR MORE 09/24/2024 N/A 45507-Jyilgpiv Plate 09/24/2024 N/A 17974-XOOT SKIN LESIONS, OVER 4 09/24/2024 N/A Encounters Encounter Location Date Provider Diagnosis [facility] [address] [place] [address] 09/24/2024 Rubi Casiano Atherosclerosis of [place] artery of both lower extremities, with unspecified presence of clinical manifestation I70.203 ; Tinea unguium B35.1 ; Pain in right toe(s) M79.674 ; Pain in left toe(s) M79.675 and Ingrown nail L60.0 Assessments Encounter Date Diagnosis (ICD Code) Assessment Notes Treatment Notes Treatment Clinical Notes Section Notes 09/24/2024 Atherosclerosis of [place] artery of both lower extremities, with unspecified presence of clinical manifestation (ICD-10 - I70.203) Q7(A), Q8(2B), Q9(1B,2C) 09/24/2024 Tinea unguium (ICD-10 - B35.1) 09/24/2024 Pain in right toe(s) (ICD-10 - M79.674) 09/24/2024 Pain in left toe(s) (ICD-10 - M79.675) 09/24/2024 Ingrown nail (ICD-10 - L60.0) Plan Of Treatment Pending Test Test Name Order Date 00762-AUWCTNR NAIL, 6 OR MORE 09/24/2024 30235-Nfkxhugw Plate 09/24/2024 96040-HJSD SKIN LESIONS, OVER 4 09/25/19 25 Next Appt Details Follow Up: 3 Months, Reason: Provider Name:Rubi bennett, 12/24/2024 03:15:00 PM, [address] [place] [address], [phone], Procedure Notes * Category Sub-Category Detail Notes [...] was recommended for pain or discomfort - 04016 Anesthesia was accomplished TOP ICALLY with Lidocaine [...] use of a nail nipper and/or dremel-type broach grinder, to a more viable healthy nail [...] to maintain effectiveness in symptomatic relief - 19327 Keratoma Treatment Parring or Cutting o f [...] instrumentation by the physician of record - 08656 Progress Notes * Jennifer MCCRAY ADOB: [birth year] (84 yo F)Acc No.[id number]:09/24/2024 Progress Note Patient:?Jennifer MCCRAY Provider:?Rubi Casiano DPM :1940???Age:84 Y???Sex:Female D ate:09/24/2024 Address:[address] [place], [place] [id number] Pcp:Carleen Samson MD Subjective: * Chief Complaints: [...] Assessment: 1.?Tinea unguium - B35.1???2 .?Atherosclerosis of [place] artery of both lower extremities, with unspecified presence of clinical manifestation - I70.203 (Primary)???Notes :Q7(A), Q8(2B), Q9(1B,2C)???3.?Pain in right toe(s) - M79.674???4.?Pain in left toe(s) - M79.675???5.?Ingrown nail - L60.0???Specify :Medial nail border, TA??? Plan: * Treatment: 2.?Tinea unguium?Procedure: 49961-COXRQYZ NAIL, 6 OR MORE 3.?Ingrown nail?Procedure: 80965-Soifwddc Plate * Procedures:?Debride Nail 6-10:?Nail debridement?Due to [...] use of a nail nipper and/or dremel-type broach grinder, to a more viable healthy nail [...] to maintain effectiveness in symptomatic relief - 75281.?Keratoma Treatment:?Parring or Cutting of Benign Hyperkeratotic Lesion(s)?(-57) [...] instrumentation by the physician of record - 30549.?Nail Avulsion:?Location?Medial nail border, TA.?Anesthesia?was accomplished TOPICALLY with [...] was recommended for pain or discomfort - 18121.? * Procedure Codes:?85063 DEBRI DE NAIL, 6 OR MORE, Modifiers: XS 77482 Avulsion Plate, Modifiers: XS , [id number] TRIM SKIN LESIONS, OVER 4, Modifiers: XS , Q8 * Follow Up:?3 Months * Images: * Sign off status: Completed true * Provider:?Rubi Casiano DPM Date:?0 09/24/2024 Generated for Julián serrano/Kendal/Yifan on:?10/17/2024 02:37 PM EDT History and Physical Notes * [...]
--- OUTSIDE RECORDS SUMMARY | 2024-10-17 14:37 | XMS_ITS | Patient Health Record ---
Author Organization [facility] Address [address] [place] [address] Care Team Providers Care Content Creation Manager Name Role Phone Chapin LEVY, Carleen Primary Care Provider Unav stacie Rubi Casiano Unavailable [phone] Allergies Allergen (clinical drug ingredient) Drug/Non Drug [...] Problem Acquired hammer toe of left foot (8841691030787390) Other hammer toe(s) (acquired), left foot (M20.42) Active confirmed Problem Bilateral atherosclerosis of arteries of lower limbs (disorder) (29039547022447389 ) Atherosclerosis of [place] artery of both lower extremities, with unspecified presence of clinical manifestation (I70.203) Active confirmed Q7(A), Q8(2B), Q9(1B,2 C) Problem Localized, primary osteoarthritis of the ankle and/or foot (346910955) Arthritis of joint of lesser toe, left (M19.072) Active confirmed Vital Signs Height 5ft in 04/25/2024 Weight 118 lbs 04/25/2024 BMI 23.04 kg/m2 04/25/2024 Procedures Procedure Date Ordered Date Performed Result Body Sit e 19052-NZJBWMP NAIL, 6 OR MORE 04/25/2024 N/A 00227-AIBB SKIN LESIONS, OVER 4 04/25/2024 N/A 43115-KJTWYBO NAIL, 6 OR MORE 09/24/2024 N/A 79433-Ekerboap Plate 09/24/2024 N/A 34345-SJKM SKIN LESIONS, OVER 4 09/24/2024 N/A Encounters Encounter Location Date Provider Diagnosis [address] [address] 04/25/2024 Rubi Casiano Pain in right toe(s) M79.674 ; Onychomycosis B35.1 ; Pain in left toe(s) M79.675 ; Other hammer toe(s) (acquired), left foot M20.42 ; Atherosclerosis of [place] artery of both lower extremities, with unspecified presence of clinical manifestation I70.203 and Tinea unguium B35.[address] [address] 09/24/2024 Rubi Casiano Atherosclerosis of [place] artery of both lower extremities, with unspecified presence of clinical manifestation I70.203 ; Tinea unguium B35.1 ; Pain in right toe(s) M79.674 ; Pain in left toe(s) M79.675 and Ingrown nail L60.[address] [address] 04/19/2024 Rubi Casiano Assessments Encounter Date Diagnosis [...] Treatment Pending Test Test Name Order Date 86793-AHEMWJS NAIL, 6 OR MORE 04/25/2024 56191-FKLYRVI NAIL, 6 OR MORE 09/24/2024 04672-Iibvxtru Plate 09/24/2024 32969-TDCK SKIN LESIONS, OVER 4 09/25/19 25 18767-SGWZ SKIN LESIONS, OVER 4 04/25/20 24 Next Appt Details Provider Name:Rubi Christinesally sabrina, 12/24/2024 03:15:00 PM, [address] [facility], [place], [address], Insurance Providers Payer Name Payer Address Payer Phone Subscriber Number Group Number Insured Name Patient Relationship to Insured Coverage Start Date Coverage End Date Medicare National [employer] [address] [place] [address] [id number] Jennifer Mccray Self - patient is the insured [facility] [employer] [facility] [address] [place] [address] [phone] [id number] Jennifer Mccray Self - patient is the insured Medical (General) History Medical History History ICD Code Arthritis Diverticulitis High Blood Pressure Measles Mumps Chicken pox Transfusions Surgical History Surgery Date(Month/Year) tonsillectomy and adenoidectomy carpal tunnel surgery rotator cuff right shoulder ileostomy Mesenteric ischemia
--- OUTSIDE RECORDS SUMMARY | 2024-10-17 14:37 | XMS_ITS ---
Author Organization [facility] Address [address] [place] [address] Care Team Providers Care Cosmetician Apprentice Name Role Phone Carleen Samson MD Primary Care Provider Unav ailable Rubi Casiano Unavailable [phone] REASON FOR VISIT CUSTOM SHOP WORKER PPWK Entered Encounters Encounter Location Date Provider Diagnosis [address] [address] 04/19/2024 Rubi Casiano Plan Of Treatment Next Appt Details Provider Name:Rubi bennett, 12/24/2024 03:15:00 PM, [address] [place] [address], [phone], Progress Notes * Jennifer MCCRAYDOB: [birth year] (83 yo F)Acc No.[id number]:04/19/2024 Patient:?Jennifer MCCRAY :1940???Age:83 Y???Sex:Female [place] [address] * true * Date:? Generated for Arti zach/Kendal/eTransmitting on:?10/17/2024 02:37 PM EDT
--- OUTSIDE RECORDS SUMMARY | 2024-10-17 14:37 | XMS_ITS | Data Portability ---
Author Organization [facility], Main Office Address [address] [facility], [address] [place] [address] Care Team Providers Care Engine Builder Name Role Phone LYNN BONDS 2ND FLOOR OTHER FLORY BROWN Primary Care Provider Assessment No [...] Recorded Time Surgical incision wound of skin 939246907503 Active 2022 abdomen HUA GARCIA NP [address] , [address], [place], [address], [facility] 3 10:42:08 Atrial fibrillati on 46692141 Active 2022 HUA GARCIA NP [address] [facility], [address], [place], [address], [facility] 3 10:53:24 Essential hypertensi on 06389914 Active 2022 HUA GARCIA NP [address] [facility], [address], [place], [address], [facility] 3 10:53:28 Hyperlipid emia 59122268 Active 2022 HUA GARCIA NP [address] , [address], [place], [address], [facility] 3 10:53:37 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 833035365 Active 2022 HUA GARCIA NP [address] [facility], [address], [place], [address], [facility] 3 10:53:45 Asthenia 57247648 Active 2022 HUA GARCIA NP [address] [facility], [address], [place], [address], [facility] 3 10:54:04 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 Medical Equipment None Reported. Allergies Allergen ID Allergen Name Allergen Category Reaction Reaction Severity Criticality Documentation Date Start Date Code Code System Note Provider Name and Address Organization Details Recorded Time 96768 lactose food,medi cation Not available Not available Not available 11/29/2022 6211 RxNorm HUA GARCIA NP [address] [facility], [address], [place], [address], [facility] 3 10:38:55 25099 amoxicill in medicatio n Not available Not available Not available 11/29/2022 723 RxNorm HUA GARCIA NP [address] [place] [address], [address], [place], [address], [facility] 3 10:39:01 Medications Name Sig Start Date [...] mm[Hg] 55 mm[Hg] HUA GARCIA NP [address] [facility], [address], [place], [address], [facility] 3 13:17:43 Date Recorded Body height Heart rate Respiratory rate Body temperature Oxygen saturation Oxygen saturation in Arterial blood by Pulse oximetry Systolic blood pressure Diastolic blood pressure Provider Name and Address Organization Details Last Updated DateTime 3 152.4 cm 82 /min 16 /min 98.3 [degF] 98 % 98 % 122 mm[Hg] 64 mm[Hg] HUA GARCIA NP [address] [facility], [facility] [address], [place], [address], [facility] 3 11:19:12 Date Recorded Body height Heart rate Respiratory rate Body temperature Oxygen saturation Oxygen saturation in Arterial blood by Pulse oximetry Systolic blood pressure Diastolic blood pressure Provider Name and Address Organization Details Last Updated DateTime 3 152.4 cm 88 /min 16 /min 97.8 [degF] 97 % 97 % 132 mm[Hg] 60 mm[Hg] HUA GARCIA NP [address] [facility], [facility] [address], [place], [address], [facility] 3 14:02:39 Date Recorded Body height Heart rate Respiratory rate Body temperature Oxygen saturation Oxygen saturation in Arterial blood by Pulse oximetry Systolic blood pressure Diastolic blood pressure Provider Name and Address Organization Details Last Updated DateTime 3 152.4 cm 80 /min 16 /min 98.2 [degF] 96 % 96 % 120 mm[Hg] 55 mm[Hg] HUA GARCIA NP [address] [facility], [facility] [address], [place], [address], [facility] 3 10:10:54 Date Recorded Body height Heart rate Respiratory rate Body temperature Oxygen saturation Oxygen saturation in Arterial blood by Pulse oximetry Systolic blood pressure Diastolic blood pressure Provider Name and Address Organization Details Last Updated DateTime 3 152.4 cm 82 /min 16 /min 98.7 [degF] 98 % 98 % 140 mm[Hg] 87 mm[Hg] HUA GARCIA NP [address] [facility], [address], [place], [address], [facility] 3 10:37:32 Social History Question Answer Notes LastModified by Organization Details LastModified Time Tobacco Smoking Status Never Smoker HUA GARCIA NP [address] [facility], [address], [place], [address], [facility] 11/29/2022 10:40:01 Do You Have An Advance Directive? Yes Information not available 11/29/2022 What Is Your Code Status? Full Code Information not available 11/29/2022 Where Do You Live? SingleLevelHouse Home Alone, 5 Entry [address] Information not available 12/07/2022 Legal Guardian? No Information not available 12/07/2022 Do You Have A Medical Power Of Siding Coreboard Inspector? Yes Information not available 12/07/2022 What Was [...] Influenza, adjuvanted, quadrivalent, PF 04/09/2022 [facility] 13:23:23 Past Encounters Encounter ID Performer Location Encounter Start Date Encounter Closed Date Diagnosis/Indication Diagnosis SNOMED-CT Code Diagnosis ICD10 Code Diagnosis Note [id number] HUA GARCIA NP [address] [address] 11/29/2022 10:23:07 12/08/2022 16:44:33 Surgical incision wound of skin 5351129338 00 R23.8 monitor for any signs of infectionm onitor BSencourag e cough, deep breath, ispirofoll owup with surgeon as scheduled Atrial fibrillation 4943 6004 I48.91 diltiazem 30 mg m7cdedwghb s 5 mg bidmonitor heart rate Essential hypertension 22378708 I10 monitor bp Hyperlipidemia 75443448 E78.5 atorvastat in 40 mg daily 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 407320176 E73.9 lactaid tid Asthenia 75116798 R53.1 PT OT eval and treatfall precaution frequent safety checks [id number] HUA GARCIA NP [address] [address] 12/03/2022 14:22:54 12/09/2022 08:14:32 Surgical incision wound of skin 6311216820 00 R23.8 monitor for any signs of infectionm onitor BSencourag e cough, deep breath, ispirofoll owup with surgeon as scheduledp robiotic daily 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 789349093 E73.9 lactaid tidensure clear tid for snacks [id number] HUA GARCIA NP [address] [address] 12/06/2022 10:51:14 12/09/2022 10:25:04 Surgical incision wound of skin 5102476350 00 R23.8 monitor for any signs of infectionm onitor BSchange dressing per surgeon recommenda tionsencou rage cough, deep breath, ispirofoll owup with surgeon as scheduledp robiotic daily Essential hypertension 30399514 I10 monitor bp [id number] MD LYNN Gipson [address] [address] 12/07/2022 13:07:44 12/14/2022 15:50:56 Essential hypertension 50445238 I10 BP in good control on diltiazem 30 mg q 6 hrsMonitor BP and labs. 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 Atrial fibrillation 4943 6004 I48.0 Rate in good control on meds as above.Cont inue eliquis 5 mg BID for AC.Monitor HR and bleeding risk. Hyperlipidemia 93460222 E78.49 Continue atorvastat in 40 mg qdMonitor labs as outpt. Asthenia 64869813 R53.1 Very deconditio gibson.Needs PT/OT for strengthen ing, balance, gait training, safety and function.C ontinue fall precaution s.Monitor for safety. 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 Recovering well.Aminah nue tramadol 25 mg q 6 hrs prn and APAP 650 mg q 6 hrs prnContinu e apixaban 5 mg BID for DVT prophylaxi s (already on this for Afib).Cont inue wound care as ordered.Co ntinue Ensure clear TID for wound healing.F/ U with surgeon as planned (appt on 12/08). Occlusion of superior mesenteric artery 005017767 K55.011 As above. Loose stool 439335905 R1 9.5 Improved.C ontinue acidophilu s qdMonitor bowel function [id number] HUA GARCIA NP [address] [address] 12/10/2022 11:17:32 12/15/2022 13:24:00 Surgical incision wound of skin 1386778794 00 R23.8 monitor for any signs of infectionm onitor BSchange dressing per surgeon recommenda tions-bide ncourage cough, deep breath, ispirofoll owup with surgeon as scheduledp robiotic dailyAVOID laxatives Asthenia 39096796 R53.1 PT OT eval and treatfall precaution frequent safety checks [id number] HUA GARCIA NP LYNN BONDS [address] [place] [address] 12/13/2022 13:35:17 12/15/2022 13:45:31 Surgical incision wound of skin 4423390185 00 R23.8 monitor for any signs of infectionm onitor BSchange dressing per surgeon recommenda tions-bide ncourage cough, deep breath, ispirofoll owup with surgeon as scheduledp robiotic dailyAVOID laxatives Asthenia 91337050 R53.1 PT OT eval and treatfall precaution frequent safety checks [id number] HUA GARCIA NP LYNN BONDS [address] [place] [address] 12/15/2022 13:02:27 12/17/2022 16:02:54 Surgical incision wound of skin 6813876633 00 R23.8 monitor for any signs of infectionm onitor BSchange dressing per surgeon recommenda tions-bide ncourage cough, deep breath, ispirofoll owup with surgeon as scheduledp robiotic dailyAVOID laxatives Asthenia 96372974 R53.1 PT OT eval and treatfall precaution frequent safety checks [id number] HUA GARCIA NP LYNN BONDS [address] [place] [address] 12/20/2022 10:57:01 12/22/2022 14:14:27 Surgical incision wound of skin 0569144894 00 R23.8 monitor for any signs of infectionm onitor BSchange dressing per surgeon recommenda tions-bide ncourage cough, deep breath, ispirofoll owup with surgeon as scheduledp robiotic dailyAVOID laxatives Asthenia 07215091 R53.1 PT OT eval and treatfall precaution frequent safety checks [id number] HUA GARCIA NP LYNN CAMMIE [address] [place] [address] 12/24/2022 13:44:46 12/28/2022 14:09:58 Surgical incision wound of skin 9946897516 00 R23.8 monitor for any signs of infectionm onitor BSchange dressing per surgeon recommenda tions-bide ncourage cough, deep breath, ispirofoll owup with surgeon as scheduledp robiotic dailyAVOID laxatives Atrial fibrillation 4943 6004 I48.0 diltiazem 30 mg p8craxwugc s 5 mg bidmonitor heart rate Asthenia 92843084 R53.1 PT OT eval and treatfall precaution frequent safety checks [id number] HUA FLEX GARCIA [address] [address] 12/27/2022 10:10:05 12/29/2022 10:56:04 Gastroesophageal reflux disease without esophagitis 045351173 K21.9 omeprazole 20 mg bid Surgical i ncision wound of skin 6421186339 00 R23.8 monitor for any signs of infectionm onitor BSencourag e cough, deep breath, ispirofoll owup with surgeon as scheduled Atrial fibrillation 4943 6004 I48.91 diltiazem 30 mg u6tlybtotm s 5 mg bidmonitor heart rate Essential hypertension 54940701 I10 monitor bp Hyperlipidemia 35372718 E78.5 atorvastat in 40 mg daily 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 794472056 E73.9 lactaid tid Asthenia 02749932 R53.1 PT OT eval and treatfall precaution frequent safety checks [id number] HUA GARCIA NP [address] [address] 12/29/2022 10:20:31 12/31/2022 14:50:04 Gastroesophageal reflux disease without esophagitis 621352363 K21.9 omeprazole 20 mg bid Surgical i ncision wound of skin 7822251887 00 R23.8 monitor for any signs of infectionm onitor BSencourag e cough, deep breath, ispirofoll owup with surgeon as scheduled Atrial fibrillation 4943 6004 I48.91 diltiazem 30 mg h5mremanlu s 5 mg bidmonitor heart rate Essential hypertension 15466238 I10 monitor bp Hyperlipidemia 53219369 E78.5 atorvastat in 40 mg daily 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 487588442 E73.9 lactaid tid Asthenia 84082029 R53.1 PT OT eval and treatfall precaution frequent safety checks Thoracic back pain 83593 8004 M54.6 lidoderm patch dailytrama dol 25 [...] [place] Jennifer A Marceau [id number] 1 Jennifer Marceau 12/15/2022 2 [place] [id number] Jennifer Marceau [id number] Jennifer Marceau 12/20/2022 1 [place] Jennifer A Marceau [id number] 1 Jennifer Marceau 12/20/2022 2 [place] [id number] Jennifer Marceau [id number] Jennifer Marceau 12/24/2022 1 [place] Jennifer A Marceau [id number] 1 Jennifer Marceau 12/24/2022 2 [place] [id number] Jennifer Marceau [id number] Jennifer Marceau 12/27/2022 1 [place] Jennifer A Marceau [id number] 1 Jnenifer Marceau 12/27/2022 2 [place] [id number] Jennifer Marceau [id number] Jennifer Marceau 12/29/2022 1 [place] Jennifer A Marceau [id number] 1 Jennifer Marceau 12/29/2022 2 [place] [id number] Jennifer Marceau [id number] Jennifer Marceau Notes Date Note Type Note Provider Name and Address Organization Details Recorded Time 12/15/2022 text/html seen today for a cute rounding visit, CAox3 sitting up in bed, lungs clear, abd healing slowly, steri strips in place, ambulating with PT and walker, she likes to stay in her room HUA GRIPPIN, WAREHOUSE DISTRIBUTION ASSOCIATE [address] [facility], [address], [place], [address], [facility] 12/15/2022 13:19:16 12/20/2022 text/html seen today for a cute rounding visit, CAOx3 sitting up in bed, ate well at breakfast, abd wound healing slowly, pt reports she is feeling better and participating with PT, ambulating with walker, bathroom with assist HUA GARCIA NP [address] [facility], [address], [place], [address], [facility] 12/20/2022 11:21:34 12/24/2022 text/html seen today for a cute rounding visit, CAOx3 in bed, she does get oob for PT, dressing dry intact, saw surgeon and it is healing well, good po intake HUA GARCIA NP [address] [facility], [address], [place], [address], [facility] 12/24/2022 14:05:34 12/27/2022 text/html seen today for 3 0 day routine rounding visit-82 yof admitted to for rehab after presenting to the hospital, she was xferred to [facility] with complaint of 5 days of [...] participating with PT HUA GARCIA NP [address] [facility], [address], [place], [address], [facility] 12/27/2022 11:22:49 12/29/2022 text/html seen today for discharge summary- 82 yof admitted to for rehab after presenting to the hospital, she was xferred to [facility] with complaint of 5 days of [...] drinking fairly well HUA GARCIA NP [address] [facility], [address], [place], [address], [facility] 12/29/2022 10:41:28 OBGyn Episode No OBEpisode recorded.
== END 2024-10-17 14:38 | disposition home or self-care (01) ==
LOC: HO.HCS 14:16
PROVIDERS: PCP Internal Medicine; Visit Provider Internal Medicine
DX: I48.0 Paroxysmal atrial fibrillation (principal); K55.059 Acute (reversible) ischemia of intestine, part and extent unspecified
CPT/HCPCS: 99214; G2211

== ENCOUNTER → 2024-10-17 14:14 | Outpatient (BNVA) | payer MEDICARE, SELFPAY | PROVIDERS: PCP Internal Medicine; Visit Provider Internal Medicine | DX: K55.059 Acute (reversible) ischemia of intestine, part and extent unspecified (principal); I48.0 Paroxysmal atrial fibrillation | CPT/HCPCS: 99212 ==

== ENCOUNTER 2025-05-14 07:30 | Outpatient (REF) | payer MEDICARE, SELFPAY ==
--- NOTE | ~2025-05-14 | XR_ITS ---
EXAMINATION: XR SINUSES CLINICAL INFORMATION: LEFT SINUS PAIN,R/O MAXILLARY OF FRONTAL SINUSITIS COMPARISON: None available. TECHNIQUE: AP, lateral, axial and Alvarado projection. FINDINGS: Paranasal sinuses are well pneumatized without air-fluid levels. No metallic foreign bodies within the orbits. No acute cortical disruption. No gross lytic or blastic lesions. XR/XR sinus min 3V IMPRESSION: No acute paranasal sinus disease. Electronically signed by: Suresh Hillman MD 05/14/2025 08:20 AM [facility]
--- OUTSIDE RECORDS SUMMARY | 2025-05-14 07:35 | XMS_ITS ---
Author Name [facility] Organization Unknown History of Medication Use Medication Directions Dispensed Refills Start Date End Date Stat us Klor-Con M20 20 MEQ tablet Pt reports taking 1/2 a tablet 01/03/2023 active diltiazem (CARDIZEM CD) 180 MG 24 hr capsule Take by mouth daily. 12/30/2022 active traMADol (ULTRAM) 50 MG tablet Take 0.5 tablets (25 mg total) by mouth. PRN 12/02/2022 active atorvastatin (LIPITOR) 40 MG tablet Take 1 tablet (40 mg total) by mouth daily. Do not start before November 27, 2022. 11/27/2022 12/28/2022 active acetaminophen (TYLENOL) 325 MG tablet Take 2 tablets (650 mg total) by mouth 4 times daily (every 6 hours) as needed for mild pain. 11/26/2022 12/27/2022 active apixaban (ELIQUIS) 5 MG tablet Take 1 tablet (5 mg total) by mouth 2 (two) times a day. 11/26/2022 12/27/2022 active lactase (LACTAID) 9000 units Tab tablet Take 1 tablet (9,000 Units total) by mouth 3 (three) times a day as needed (before she trys chocolate ensure). 11/26/2022 12/27/2022 active diltiazem (CARDIZEM) 30 MG tablet Take 1 tablet (30 mg total) by mouth every 6 (six) hours around the clock. 11/26/2022 12/15/2022 active Allergies Allergen Reaction Severity Comment Documented Date Source Statu s LACTOSE GI INTOLERANCE/NAUSEA/VOMITIN G 01/24/2023 [facility] active AMOXICILLIN RASH/DERMATITIS 11/18/2022 CCT a ctive Problems Problem Status Onset Date Problem Type Date of Resoluti on Source Ischemic bowel syndrome active 2022-11-18 ProblemAct [facility] Occlusion of superior mesenteric artery active 2022-11-17 ProblemAct [facility] Encounters Encounter Type Encounter Reason Primary Diagnosis Location Date Ambulatory Acute infarction of intestine, part and extent unspecified Acute infarction of intestine, part and extent unspecified [facility] 01/24/2023 Ambulatory Other specified postprocedural states Other specified postprocedural states [facility] 01/18/2023 Ambulatory Encounter for ot her specified aftercare [facility] 12/22/2022 Ambulatory [facility] 12/09/2022 Ambulatory [facility] 12/09/2022 Ambulatory Vascular disorde r of intestine, unspecified [facility] 12/08/2022 Inpatient Acute infarction of intestine, part and extent unspecified [facility] 11/18/2022 Emergency Vascular disorde r of intestine, unspecified [facility] 11/18/2022 Care Team Organization Name Specialty Phone Email Start Date End Da te [facility] FLORY BROWN [facility] 12/09/2022 [facility] BROWN [facility] 11/18/202210/29 [facility] 11/18/2022 11/18/2022 [facility] 11/18/2022
--- OUTSIDE RECORDS SUMMARY | 2025-05-14 07:36 | XMS_ITS | Encounter Summary ---
Author Organization Formerly [facility] Address [address] [place] [address] Care Team Providers Care Beater And Pulper Feeder Name Role Phone Carleen Samson MD Primary Care Provider [phone] Hernesto Dior MD Unavailable [phone] Encounter Details Date Type Department Care Team (Late st Contact Info) Description 12/10/2022 Scanned Document [facility] Emergency General Surgery [place] [address] [facility] [address] [place] [id number] Suzanne Mosquera APRN [address] [facility] [address] [place] [address] Social History Tobacco Use Types Packs/Day Years [...] on filedocumented in this encounter Care Teams Beater And Pulper Feeder Relationship Specialty [place] [address] [place] [address] PCP - General Internal Medicine 11/19/22 Hernesto Dior MD [address] [place] [address] Internal Medicine 01/24/23 documented as of this encounter
--- OUTSIDE RECORDS SUMMARY | 2025-05-14 07:36 | XMS_ITS | Patient Health Record ---
Author Organization [facility] Address [address] [place] [address] Care Team Providers Care Learning Technologies Specialist Name Role Phone Chapin LEVY, Carleen Primary Care Provider Unav stacie CasianoRuib Unavailable [phone] Allergies Allergen (clinical drug ingredient) Drug/Non Drug Allergy documented on EMR Reaction Allergy Type Onset Date Status amoxicillin Amoxicillin Unknown Drug Allergy Act claude Reason For Referral No Information Medications Medication SIG (Take, Route, Frequency, Duration) Notes Start Date End Date Status Magnesium Active Osteo Bi-Flex One Per Day Active Eliquis Active dilTIAZem HCl Active Klor-Con Active Atorvastatin Calcium Active Probiotic Active Super B Complex Acti ve Vitamin D3 Active Centrum Silver Activ e Immunizations Vaccine Route Administration Date Status Comme nts Influenza Unknown 02/28/2024 Administered Influenza Unknown 03/01/2025 Administered Social History Tobacco Use: Social History Observation [...] Problem Acquired hammer toe of left foot (4849023439833925) Other hammer toe(s) (acquired), left foot (M20.42) Active confirmed Problem Bilateral atherosclerosis of arteries of lower limbs (disorder) (56083766401164965 ) Atherosclerosis of diomede artery of both lower extremities, with unspecified presence of clinical manifestation (I70.203) Active confirmed Q7(A), Q8(2B), Q9(1B,2 C) Problem Localized, primary osteoarthritis of the ankle and/or foot (853962396) Arthritis of joint of lesser toe, left (M19.072) Active confirmed Vital Signs Blood pressure diastolic 65 mm Hg 04/01/2025 Height 5ft in 04/01/2025 Blood pressure systolic 126 mm Hg 04/01/2025 Weight 118 lbs 04/01/2025 BMI 23.04 kg/m2 04/01/2025 Procedures Procedure Date Ordered Date Performed Result Body Sit e 73218-IYLMWAP NAIL, 6 OR MORE 09/24/2024 N/A 21564-Sdjpqsuf Plate 09/24/2024 N/A 80860-DBPQ SKIN LESIONS, OVER 4 09/24/2024 N/A Encounters [facility] [address] [facility]/24/2024 Rubi Casiano Atherosclerosis of diomede artery of both lower extremities, with unspecified presence of clinical manifestation I70.203 ; Tinea unguium B35.1 ; Pain in right toe(s) M79.674 ; Pain in left toe(s) M79.675 and Ingrown nail L60.[address] [address] 12/24/2024 Rubi Casiano Atherosclerosis of diomede artery of both lower extremities, with unspecified presence of clinical manifestation I70.203 ; Tinea unguium B35.1 ; Pain in right toe(s) M79.674 and Pain in left toe(s) M79.[address] [address] 04/01/2025 Rubi Casiano Atherosclerosis of diomede artery of both lower extremities, with unspecified presence of clinical manifestation I70.203 ; Tinea unguium B35.1 ; Pain in right toe(s) M79.674 and Pain in left toe(s) M79.675 Assessments Encounter Date Diagnosis (ICD Code) Assessment Notes Treatment Notes Treatment Clinical Notes Section Notes 09/24/2024 Tinea unguium (ICD-10 - B35.1) 09/24/2024 Atherosclerosis of diomede artery of both lower extremities, with unspecified presence of clinical manifestation (ICD-10 - I70.203) Q7(A), Q8(2B), Q9(1B,2C) 12/24/2024 Tinea unguium (ICD-10 - B35.1) 12/24/2024 Atherosclerosis of diomede artery of both lower extremities, with unspecified presence of clinical manifestation (ICD-10 - I70.203) Q7(A), Q8(2B), Q9(1B,2C) 04/01/2025 Tinea unguium (ICD-10 - B35.1) 04/01/2025 Atherosclerosis of diomede artery of both lower extremities, with unspecified presence of clinical manifestation (ICD-10 - I70.203) Q7(A), Q8(2B), Q9(1B,2C) 12/24/2024 Pain in right toe(s) (ICD-10 - M79.674) 04/01/2025 Pain in right toe(s) (ICD-10 - M79.674) 09/24/2024 Pain in right toe(s) (ICD-10 - M79.674) 09/24/2024 Pain in left toe(s) (ICD-10 - M79.675) 12/24/2024 Pain in left toe(s) (ICD-10 - M79.675) 04/01/2025 Pain in left toe(s) (ICD-10 - M79.675) 09/24/2024 Ingrown nail (ICD-10 - L60.0) Plan Of Treatment Pending Test Test Name Order Date [id number]-CQABEJO NAIL, 6 OR MORE 04/25/2024 [id number] NAIL, 6 OR MORE 09/24/2024 68422-Afphkhuq Plate 09/24/2024 17105-QQYZ SKIN LESIONS, OVER 4 09/25/19 34978-LMVV SKIN LESIONS, OVER 4 04/25/20 Next Appt Details Provider Name:Rubi bennett, 08/15/2025 11:00:00 AM, [address] [place], [address], Insurance Providers Payer Name Payer Address Payer Phone Subscriber Number Group Number Insured Name Patient Relationship to Insured Coverage Start Date Coverage End Date Medicare National [employer] [address] [place] [address] [id number] Jennifer Mccray Self - patient is the insured 4 [employer] [facility] [address] [place] [address] [id number] Jennifer Mccray Self - patient is the insured Medical (General) History Medical History History ICD Code Arthritis Diverticulitis High Blood Pressure Measles Mumps Chicken pox Transfusions Surgical History Surgery Date(Month/Year) tonsillectomy and adenoidectomy carpal tunnel surgery rotator cuff right shoulder ileostomy Mesenteric ischemia
--- OUTSIDE RECORDS SUMMARY | 2025-05-14 07:36 | XMS_ITS | Data Portability ---
Author Organization [facility], Main Office Address [address] [facility], [address] [place] [address] Care Team Providers Care Director Pharmacology Name Role Phone LYNN BONDS 2ND FLOOR OTHER [phone] FLORY BROWN Primary Care Provider Assessment No [...] Recorded Time Surgical incision wound of skin 713970880572 Active 2022 abdomen HUA GARCIA NP [address] [facility], [address], [place], [address], [facility] 3 10:42:08 Atrial fibrillati on 84825452 Active 2022 HUA GARCIA NP [address] [facility], [address], [place], [address], [facility] 3 10:53:24 Essential hypertensi on 48862481 Active 2022 HUA GARCIA NP [address] [facility], [address], [place], [address], [facility] 3 10:53:28 Hyperlipid emia 67432076 Active 2022 HUA GARCIA NP [address] [facility], [address], [place], [address], [facility] 3 10:53:37 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 866586845 Active 2022 HUA GARCIA NP [address] [facility], [address], [place], [address], [facility] 3 10:53:45 Asthenia 69426544 Active 2022 HUA GARCIA NP [address] [facility], [address], [place], [address], [facility] 3 10:54:04 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 Medical Equipment None Reported. Allergies Allergen ID Allergen Name Allergen Category Reaction Reaction Severity Criticality Documentation Date Start Date Code Code System Note Provider Name and Address Organization Details Recorded Time 36964 lactose food,medi cation Not available Not available Not available 11/29/2022 6211 RxNorm HUA GARCIA NP [address] [facility], [address], [place], [address], [facility] 3 10:38:55 61954 amoxicill in medicatio n Not available Not available Not available 11/29/2022 723 RxNorm HUA GARCIA NP [address] [facility], [address], [place], [address], [facility] 3 10:39:01 Medications Name Sig Start Date Stop Date Status Note LastModified by Organization Details LastModified Time diltiazem 30 mg tablet TAKE 1 TABLET BY MOUTH EVERY 6 HOURS 023 active Not Available Not Available Not Avai lable Vitals Date Recorded Body height Heart rate Respiratory rate Body temperature Oxygen saturation Systolic And Diastolic Provider Name and Address Organization Details Last Updated DateTime 3 152.4 cm 78 /min 16 /min 97.1 [degF] 97 % 117/55 mm[Hg] HUA GARCIA NP [address], [address], [place], [address], [facility] 3 13:17:43 Date Recorded Body height Heart rate Respiratory rate Body temperature Oxygen saturation Systolic And Diastolic Provider Name and Address Organization Details Last Updated DateTime 3 152.4 cm 82 /min 16 /min 98.3 [degF] 98 % 122/64 mm[Hg] HUA GARCIA NP [address] [facility], [address], [place], [address], [facility] 3 11:19:12 Date Recorded Body height Heart rate Respiratory rate Body temperature Oxygen saturation Systolic And Diastolic Provider Name and Address Organization Details Last Updated DateTime 3 152.4 cm 88 /min 16 /min 97.8 [degF] 97 % 132/60 mm[Hg] HUA GARCIA NP [address] [facility], [address], [place], [address], [facility] 3 14:02:39 Date Recorded Body height Heart rate Respiratory rate Body temperature Oxygen saturation Systolic And Diastolic Provider Name and Address Organization Details Last Updated DateTime 3 152.4 cm 80 /min 16 /min 98.2 [degF] 96 % 120/55 mm[Hg] HUA GARCIA NP [address] [facility], [address], [place], [address], [facility] 3 10:10:54 Date Recorded Body height Heart rate Respiratory rate Body temperature Oxygen saturation Systolic And Diastolic Provider Name and Address Organization Details Last Updated DateTime 3 152.4 cm 82 /min 16 /min 98.7 [degF] 98 % 140/87 mm[Hg] HUA GARCIA NP [address] [facility], [address], [place], [address], [facility] 3 10:37:32 Social History Question Answer Notes LastModified by Organization Details LastModified Time Tobacco Smoking Status Never Smoker HUA GARCIA NP [address] [facility], [address], [place], [address], [facility] 11/29/2022 10:40:01 Do You Have An Advance Directive? Yes Information not available 11/29/2022 What Is Your Code Status? Full Code Information not available 11/29/2022 Where Do You Live? SingleLevelHouse Home Alone, 5 Entry [address] Information not available 12/07/2022 Legal Guardian? 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 Yes Information not available 12/07/2022 What Was [...] quadrivalent, PF 04/09/2022 completed Sarah jiménez MA - [facility] 06/17/2023 13:23:23 Past Encounters Encounter ID Performer Location Encounter Start Date Encounter Closed Date Diagnosis/Indication Diagnosis SNOMED-CT Code Diagnosis ICD10 Code Diagnosis IMO Codes Diagnosis Note [id number] HUA GARCIA NP [facility] [address] [place] [address] 11/29/2022 10:23:07 12/08/2022 16:44:33 Surgical incision wound of skin 9870870558 00 R23.8 monitor for any signs of infectionm onitor BSencourag e cough, deep breath, ispirofoll owup with surgeon as scheduled Atrial fibrillation 4943 6004 I48.91 diltiazem 30 mg h5izqzipcz s 5 mg bidmonitor heart rate Essential hypertension 67416992 I10 monitor bp Hyperlipidemia 04029964 E78.5 atorvastat in 40 mg daily 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 510835750 E73.9 lactaid tid Asthenia 81176706 R53.1 PT OT eval and treatfall precaution frequent safety checks [id number] HUA GARCIA NP [address] [address] 12/03/2022 14:22:54 12/09/2022 08:14:32 Surgical incision wound of skin 4135267932 00 R23.8 monitor for any signs of infectionm onitor BSencourag e cough, deep breath, ispirofoll owup with surgeon as scheduledp robiotic daily 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 964704971 E73.9 lactaid tidensure clear tid for snacks [id number] HUA GARCIA NP [address] [address] 12/06/2022 10:51:14 12/09/2022 10:25:04 Surgical incision wound of skin 1285176060 00 R23.8 monitor for any signs of infectionm onitor BSchange dressing per surgeon recommenda tionsencou rage cough, deep breath, ispirofoll owup with surgeon as scheduledp robiotic daily Essential hypertension 59702800 I10 monitor bp [id number] Marion Álvarez MD [address] [address] 12/07/2022 13:07:44 12/14/2022 15:50:56 Essential hypertension 39917906 I10 BP in good control on diltiazem 30 mg q 6 hrsMonitor BP and labs. 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 596391489 E73.8 Continue lactaid with meals. Atrial fibrillation 4943 6004 I48.0 Rate in good control on meds as above.Cont inue eliquis 5 mg BID for AC.Monitor HR and bleeding risk. Hyperlipidemia 03497660 E78.49 Continue atorvastat in 40 mg qdMonitor labs as outpt. Asthenia 63805903 R53.1 Very deconditio gibson.Needs PT/OT for strengthen ing, balance, gait training, safety and function.C ontinue fall precaution s.Monitor for safety. 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 Recovering well.Aminah nue tramadol 25 mg q 6 hrs prn and APAP 650 mg q 6 hrs prnContinu e apixaban 5 mg BID for DVT prophylaxi s (already on this for Afib).Cont inue wound care as ordered.Co ntinue Ensure clear TID for wound healing.F/ U with surgeon as planned (appt on 12/08). Occlusion of superior mesenteric artery 903690250 K55.011 As above. Loose stool 229683685 R1 9.5 Improved.C ontinue acidophilu s qdMonitor bowel function [id number] FLEX PATEL [address] [place] [address] 12/10/2022 11:17:32 12/15/2022 13:24:00 Surgical incision wound of skin 6661734282 00 R23.8 monitor for any signs of infectionm onitor BSchange dressing per surgeon recommenda tions-bide ncourage cough, deep breath, ispirofoll owup with surgeon as scheduledp robiotic dailyAVOID laxatives Asthenia 60481581 R53.1 PT OT eval and treatfall precaution frequent safety checks [id number] FLEX PATEL [address] [place] [address] 12/13/2022 13:35:17 12/15/2022 13:45:31 Surgical incision wound of skin 9871258466 00 R23.8 monitor for any signs of infectionm onitor BSchange dressing per surgeon recommenda tions-bide ncourage cough, deep breath, ispirofoll owup with surgeon as scheduledp robiotic dailyAVOID laxatives Asthenia 02379148 R53.1 PT OT eval and treatfall precaution frequent safety checks [id number] HUA GARCIA NP [address] [address] 12/15/2022 13:02:27 12/17/2022 16:02:54 Surgical incision wound of skin 6816684321 00 R23.8 monitor for any signs of infectionm onitor BSchange dressing per surgeon recommenda tions-bide ncourage cough, deep breath, ispirofoll owup with surgeon as scheduledp robiotic dailyAVOID laxatives Asthenia 24453337 R53.1 PT OT eval and treatfall precaution frequent safety checks [id number] HUA GARCIA NP [address] [address] 12/20/2022 10:57:01 12/22/2022 14:14:27 Surgical incision wound of skin 0039741078 00 R23.8 monitor for any signs of infectionm onitor BSchange dressing per surgeon recommenda tions-bide ncourage cough, deep breath, ispirofoll owup with surgeon as scheduledp robiotic dailyAVOID laxatives Asthenia 39881921 R53.1 PT OT eval and treatfall precaution frequent safety checks [id number] HUA GARCIA NP [address] [address] 12/24/2022 13:44:46 12/28/2022 14:09:58 Surgical incision wound of skin 2932482830 00 R23.8 monitor for any signs of infectionm onitor BSchange dressing per surgeon recommenda tions-bide ncourage cough, deep breath, ispirofoll owup with surgeon as scheduledp robiotic dailyAVOID laxatives Atrial fibrillation 4943 6004 I48.0 diltiazem 30 mg u5bfjbotjv s 5 mg bidmonitor heart rate Asthenia 78880556 R53.1 PT OT eval and treatfall precaution frequent safety checks [id number] HUA GRIPPIN, ANALYTICAL RESEARCH PROGRAM MANAGER [address] [address] 12/27/2022 10:10:05 12/29/2022 10:56:04 Gastroesophageal reflux disease without esophagitis 402009637 K21.9 omeprazole 20 mg bid Surgical i ncision wound of skin 9169757109 00 R23.8 monitor for any signs of infectionm onitor BSencourag e cough, deep breath, ispirofoll owup with surgeon as scheduled Atrial fibrillation 4943 6004 I48.91 diltiazem 30 mg k8kysqkztt s 5 mg bidmonitor heart rate Essential hypertension 13097613 I10 monitor bp Hyperlipidemia 79895560 E78.5 atorvastat in 40 mg daily 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 131470328 E73.9 lactaid tid Asthenia 09614572 R53.1 PT OT eval and treatfall precaution frequent safety checks [id number] HUA GARCIA NP [address] [address] 12/29/2022 10:20:31 12/31/2022 14:50:04 Gastroesophageal reflux disease without esophagitis 952919760 K21.9 omeprazole 20 mg bid Surgical i ncision wound of skin 7335333486 00 R23.8 monitor for any signs of infectionm onitor BSencourag e cough, deep breath, ispirofoll owup with surgeon as scheduled Atrial fibrillation 4943 6004 I48.91 diltiazem 30 mg b7tbbodspr s 5 mg bidmonitor heart rate Essential hypertension 82028520 I10 monitor bp Hyperlipidemia 05209458 E78.5 atorvastat in 40 mg daily 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 021410568 E73.9 lactaid tid Asthenia 77871118 R53.1 PT OT eval and treatfall precaution frequent safety checks Thoracic back pain 66242 8004 M54.6 lidoderm patch dailytrama dol 25 mg q6hr prn Health Concerns Section Related Observation LastModified by Organization Detai ls LastModified Time None Recorded Concern Status LastModified by Organization Details LastModified Time None Recorded Advance Directives Directive Y: Payers Insurance Date Sequence Insurance Name Policy Number Policy Baird Covered Member ID Baird Member ID Guarantor Name 12/29/2022 1 [place] [employer] ([employer] SERVICES Jennifer Mccray [id number] Jennifer Mccray 12/29/2022 2 [place] [id number] Jennifer Mccray [id number] Jennifer Mccray Notes Date Note Type Note Provider Name and Address Organization Details Recorded Time 12/15/2022 text/html ROS as noted in the HPI seen today for acute rounding visit, CAox3 sitting up in bed, lungs clear, abd healing slowly, steri strips in place, ambulating with PT and walker, she likes to stay in her room HUA GARCIA NP [address] [facility], [address], [place], [address], [facility] 12/15/2022 13:19:16 12/20/2022 text/html ROS as noted in the HPI seen today for acute rounding visit, CAOx3 sitting up in bed, ate well at breakfast, abd wound healing slowly, pt reports she is feeling better and participating with PT, ambulating with walker, bathroom with assist HUA GARCIA NP [address] [facility], [address], [place], [address], [facility] 12/20/2022 11:21:34 12/24/2022 text/html ROS as noted in the HPI seen today for acute rounding visit, CAOx3 in bed, she does get oob for PT, dressing dry intact, saw surgeon and it is healing well, good po intake HUA GARCIA NP [address] [facility], [address], [place], [address], [facility] 12/24/2022 14:05:34 12/27/2022 text/html ROS as noted in the HPI seen today for 30 day routine rounding visit-82 yof admitted to for rehab after presenting to the hospital, she was xferred to [facility] with complaint of 5 days of [...] NP [address] [facility], [address], [place], [address], [facility] 12/27/2022 11:22:49 12/29/2022 text/html ROS as noted in the HPI seen today for discharge summary- 82 yof admitted to for rehab after presenting to the hospital, she was xferred to [facility] with complaint of 5 days of [...] medically stable, eating and drinking fairly well HAU GARCIA NP [address] [facility], [address], [place], [address], [facility] 12/29/2022 10:41:28 OBGyn Episode No OBEpisode recorded.
--- OUTSIDE RECORDS SUMMARY | 2025-05-14 07:36 | XMS_ITS | Encounter Summary ---
Author Organization [facility] Address [address] [place] [address] Care Team Providers Care As400 Programmer Analyst Name Role Phone Carleen Samson MD Primary Care Provider [phone] Hernesto Dior MD Unavailable [phone] Encounter Details Date Type Department Care Team (Late st Contact Info) Description 12/09/2022 Scanned Document [facility] Emergency General Surgery [place] [address] [facility] [address] [place] [address] Social History Tobacco Use Types [...] on filedocumented in this encounter Care Teams As400 Programmer Analyst Relationship Specialty Start Date End Date Carleen Samson MD [address] [address] PCP - General Internal Medicine 11/19/22 Hernesto Dior MD [address] [address] Internal Medicine 01/24/23 documented as of this encounter
--- OUTSIDE RECORDS SUMMARY | 2025-05-14 07:36 | XMS_ITS | Clinical Summary ---
Author Organization [facility] Address [address] [place] [address] 7 [place] [address] Care Team Providers Care Computer Lab Aide Name Role Phone Unavailable Primary Care Provider [...] Vaccine: 50+ Years (2 of 2 - PCV20 or PCV21) 02/20/2017 02/21/2016 COVID-19 Vaccine ( - season) 2025 07/01/2022, 08/31/2021, 02/26/2021, Additional history exists Influenza Vaccine (#1) 2025 , 03/14/2023, 04/09/2022, Additional history exists HIB Vaccines Aged [...] age to complete this topic Insurance MEDICARE [facility] MEDEX MEDICARE SUPPLEMENT
--- OUTSIDE RECORDS SUMMARY | 2025-05-14 07:36 | XMS_ITS | Clinical Summary ---
Author Organization [facility] Address [address] [place] [address] Care Team Providers Care Bedspring Assembler Name Role Phone Carleen Samson MD Primary Care Provider Hernesto Dior MD Unavailable [phone] Allergies Active Allergy Reactions Criticality Noted Date [...] 89 01/24/2023 10:27 AM EDT Temperature 36.7 C (98.1 F) 12/08/2022 1:50 PM EDT Respiratory Rate 20 11/26/2022 11:59 AM EDT Oxygen Saturation 99% 01/24/2023 10:27 AM EDT Inhaled Oxygen Concentration - - Weight 56.7 kg (125 lb) 01/24/2023 10:27 AM EDT Height 152.4 cm (5') 01/24/2023 10:27 AM EDT Body Mass Index 24.41 01/24/2023 10:27 AM EDT Plan of Treatment Health Maintenance Due Date Last Done Comments Advance Care Planning 1940 DTaP/Tdap/Td Vaccines (1 - Tdap) 1958 Pneumococcal Vaccines 50+ (1 of 1 - PCV) 1989 Zoster (Shingles) Vaccine (1 of 2) 1989 DXA Bone Density (Females,Ages 65 and older) 2004 RSV Vaccine 50 years and older and Patients (1 - 1-dose 75+ series) 2014 Influenza Vaccine 12/28/2024 04/09/2022 COVID-19 Vaccine ( season) 2025 07/01/2022, 08/31/2021, 02/26/2021, Additional history exists Hepatitis B Vaccines Aged Out No long er eligible based on patient's age to complete this topic Insurance MEDICARE PART A & B [place] [id number] Advance Directives * Full Code (Latest Code Status on File) Date Activated Date Inactivated Comments 11/18/2022 4:22 AM Care Teams Bedspring Assembler Relationship Specialty Start Date End Date Carleen Samson MD [address] [address] PCP - General Internal Medicine 11/19/22 Hernesto Dior MD [address] [address] Internal Medicine 01/24/23
[2025-05-14 08:44] LABS: Hematocrit 36.7 % (37.0-47.0); Hemoglobin 11.9 g/dl (12.0-16.0); Mean Corpuscular HGB Conc 32.4 g/dl (31.0-35.0); Mean Corpuscular Hemoglobin 30.4 pg (27.0-33.0); Mean Corpuscular Volume 93.6 fL (80.0-98.0); NRBC Abs Auto 0.000 X10*3/uL (0.0-0.012); NRBC Pct Auto 0.0 /100WBC (0.0-0.2); PLT CLUMP 1; Red Blood Count 3.92 X10*6/uL (4.20-5.50)
[2025-05-14 08:47] LABS: WBC ABN SCTR FOR CBC 1
[2025-05-14 09:18] LABS: Atypical Lymphs Percent Manual 6 % (0-6); Band Neutrophils Percent 1 % (3-5); Lymphocytes Percent Manual 47 % (20-40); Monocytes Percent Manual 15 % (2-11); Neutrophils Percent Manual 31 % (45-73)
[2025-05-14 09:19] LABS: Acanthocytes 3+ (>5) /OIF; Atypical Lymph Absolute Manual 0.3 x10*3/uL; Burr Cells 3+ (>5) /OIF; Large Platelet PRESENT; Lymphocytes Absolute Manual 2.4 X10*3/uL (1.2-4.9); Macrocytosis 1+ (5-14) /OIF; Monocytes Absolute Manual 0.8 X10*3/uL (0.1-1.2); Neutrophils Absolute Manual 1.7 X10*3/uL (2.0-8.3); Ovalocytes 1+ (5-14) /OIF; Polychromasia 1+ (0-2) /OIF; RBC Morphology NOTED; Schistocytes 2+ (3-5) /OIF; Smudge Cells PRESENT; Toxic Vacuolation PRESENT; White Blood Count 5.2 X10*3/uL (4.8-10.8)
[2025-05-14 09:20] LABS: Platelet Count 232 X10*3/uL (160-400)
== END 2025-05-14 07:31 | disposition home or self-care (01) ==
LOC: HO.LAB 07:30
PROVIDERS: PCP Internal Medicine; Visit Provider Internal Medicine
DX: I10 Essential (primary) hypertension (principal); R53.83 Other fatigue; E11.9 Type 2 diabetes mellitus without complications; E78.00 Pure hypercholesterolemia, unspecified; E55.9 Vitamin D deficiency, unspecified; J34.89 Other specified disorders of nose and nasal sinuses
CPT/HCPCS: 36415; 70220; 80053; 80061; 82306; 83036; 84439; 84443; 85007; 85025; 85027

== ENCOUNTER → 2025-05-14 07:48 | Outpatient (BNV) | payer MEDICARE, SELFPAY | PROVIDERS: PCP Internal Medicine; Visit Provider Radiology Diagnostic Radiology | DX: J32.9 Chronic sinusitis, unspecified (principal) | CPT/HCPCS: 70220 ==

== ENCOUNTER 2025-05-15 06:42 | Outpatient (REF) | payer MEDICARE, SELFPAY ==
--- OUTSIDE RECORDS SUMMARY | 2025-05-15 06:44 | XMS_ITS | Clinical Summary ---
Author Organization [facility] Address [address] [place] [address] 7 [place] [address] Care Team Providers Care Media Clerk Name Role Phone Unavailable Primary Care Provider [...] age to complete this topic Insurance MEDICARE [facility] MEDEX MEDICARE SUPPLEMENT
--- OUTSIDE RECORDS SUMMARY | 2025-05-15 06:44 | XMS_ITS | Encounter Summary ---
Author Organization [facility] Address [address] [place] [address] Care Team Providers Care Legal Instruments Examiner Name Role Phone Carleen Samson MD Primary Care Provider [phone] Hernesto Dior MD Unavailable [phone] Encounter Details Date Type Department Care Team (Late st Contact Info) Description 12/10/2022 Scanned Document [facility] Emergency General Surgery [place] [address] [facility] [address] [place] [address] Suzanne Mosquera APRN [address] [facility] [address] [place] [address] Social History Tobacco Use Types Packs/Day Years [...] on filedocumented in this encounter Care Teams Legal Instruments Examiner Relationship Specialty [place] [address] [place] [address] PCP - General Internal Medicine 11/19/22 Hernesto Dior MD [address] [place] [address] Internal Medicine 01/24/23 documented as of this encounter
--- OUTSIDE RECORDS SUMMARY | 2025-05-15 06:44 | XMS_ITS | Clinical Summary ---
Author Organization [facility] Address [address] [place] [address] Care Team Providers Care Open Pit Quarry Supervisor Name Role Phone Carleen Samson MD Primary Care Provider Hernesto Dior MD Unavailable [phone] Allergies Active Allergy Reactions Criticality Noted Date [...] topic Insurance MEDICARE PART A & B [place] [id number] Advance Directives * Full Code (Latest Code Status on File) Date Activated Date Inactivated Comments 11/18/2022 4:22 AM Care Teams Open Pit Quarry Supervisor Relationship Specialty Start Date End Date Carleen Samson MD [address] [address] PCP - General Internal Medicine 11/19/22 Hernesto Dior MD [address] [address] Internal Medicine 01/24/23
--- OUTSIDE RECORDS SUMMARY | 2025-05-15 06:44 | XMS_ITS | Encounter Summary ---
Author Organization [facility] Address [address] [place] [address] Care Team Providers Care Telecom Manager Name Role Phone Carleen Samson MD Primary Care Provider [phone] Hernesto Dior MD Unavailable [phone] Encounter Details Date Type Department Care Team (Late st Contact Info) Description 12/09/2022 Scanned Document [facility] Emergency General Surgery [place] [address] [facility] [address] [place] [address] Social History Tobacco Use Types [...] on filedocumented in this encounter Care Teams Telecom Manager Relationship Specialty Start Date End Date Carleen Samson MD [address] [address] PCP - General Internal Medicine 11/19/22 Hernesto Dior MD [address] [address] Internal Medicine 01/24/23 documented as of this encounter
--- OUTSIDE RECORDS SUMMARY | 2025-05-15 06:44 | XMS_ITS | Patient Health Record ---
Author Organization [facility] Address [address] [place] [address] Care Team Providers Care Furnace Cooler Name Role Phone Chapin LEVY, Carleen Primary Care Provider Unav stacie CasianoRubi Unavailable [phone] Allergies Allergen (clinical drug ingredient) Drug/Non Drug [...] Problem Acquired hammer toe of left foot (9501579912126154) Other hammer toe(s) (acquired), left foot (M20.42) Active confirmed Problem Bilateral atherosclerosis of arteries of lower limbs (disorder) (53120260585671176 ) Atherosclerosis of [place] artery of both lower extremities, with unspecified presence of clinical manifestation (I70.203) Active confirmed Q7(A), Q8(2B), Q9(1B,2 C) Problem Localized, primary osteoarthritis of the ankle and/or foot (036188227) Arthritis of joint of lesser toe, left (M19.072) Active confirmed Vital Signs Blood pressure diastolic 65 mm Hg 04/01/2025 Height 5ft in 04/01/2025 Blood pressure systolic 126 mm Hg 04/01/2025 Weight 118 lbs 04/01/2025 BMI 23.04 kg/m2 04/01/2025 Procedures Procedure Date Ordered Date Performed Result Body Sit e 34897-[id number] NAIL, 6 OR MORE 09/24/2024 N/A 81900-Ozbqgkvk Plate 09/24/2024 N/A 79355-CEJJ SKIN LESIONS, OVER 4 09/24/2024 N/A Encounters Encounter [facility] [address] [facility]/24/[facility]24 Rubi Casiano Atherosclerosis of [place] artery of both lower extremities, with unspecified presence of clinical manifestation I70.203 ; Tinea unguium B35.1 ; Pain in right toe(s) M79.674 ; Pain in left toe(s) M79.675 and Ingrown nail L60.[address] [address] 12/24/2024 Rubi Casiano Atherosclerosis of [place] artery of both lower extremities, with unspecified presence of clinical manifestation I70.203 ; Tinea unguium B35.1 ; Pain in right toe(s) M79.674 and Pain in left toe(s) M79.[address] [address] 04/01/2025 Rubi Casiano Atherosclerosis of [place] artery of both lower extremities, with unspecified presence of clinical manifestation I70.203 ; Tinea unguium B35.1 ; Pain in right toe(s) M79.674 and Pain in left toe(s) M79.675 Assessments Encounter Date Diagnosis (ICD Code) Assessment Notes Treatment Notes Treatment Clinical Notes Section Notes 09/24/2024 Tinea unguium (ICD-10 - B35.1) 09/24/2024 Atherosclerosis of [place] artery of both lower extremities, with unspecified presence of clinical manifestation (ICD-10 - I70.203) Q7(A), Q8(2B), Q9(1B,2C) 12/24/2024 Tinea unguium (ICD-10 - B35.1) 12/24/2024 Atherosclerosis of [place] artery of both lower extremities, with unspecified presence of clinical manifestation (ICD-10 - I70.203) Q7(A), Q8(2B), Q9(1B,2C) 04/01/2025 Tinea unguium (ICD-10 - B35.1) 04/01/2025 Atherosclerosis of [place] artery of both lower extremities, with unspecified [...] Treatment Pending Test Test Name Order Date [id number] NAIL, 6 OR MORE 04/25/2024 88538-WPYQNUN NAIL, 6 OR MORE 09/24/2024 67215-Ywpqsrzy Plate 09/24/2024 43205-NOBN SKIN LESIONS, OVER 4 09/25/19 37259-SOKV SKIN LESIONS, OVER 4 04/25/20 Next Appt Details Provider Name:Rubi bennett, 08/15/2025 11:00:00 AM, [address] [place], [address], Insurance Providers Payer Name Payer Address Payer Phone Subscriber Number Group Number Insured Name Patient Relationship to Insured Coverage Start Date Coverage End Date Medicare [employer] [address] [place] [address] [id number] Jennifer Mccray Self - patient is the insured 4 [employer] [facility] [address] [place] [address] [id number] Jennifer Mccray Self - patient is the insured Medical (General) History Medical History History ICD Code Arthritis Diverticulitis High Blood Pressure Measles Mumps Chicken pox Transfusions Surgical History Surgery Date(Month/Year) tonsillectomy and adenoidectomy carpal tunnel surgery rotator cuff right shoulder ileostomy Mesenteric ischemia
[2025-05-15 07:47] LABS: Alanine Aminotransferase 38 U/L (0-31); Albumin Level 4.4 g/dL (3.5-5.0); Alkaline Phosphatase 67 U/L (39-117); Anion Gap 13 (12-20); Aspartate Amino Transferase 37 U/L (5-31); Blood Urea Nitrogen 17 mg/dL (9-16); Calcium 9.3 mg/dL (8.4-10.2); Carbon Dioxide 28 mmol/L (22-29); Chloride 104 mmol/L (96-108); Cholesterol 78 mg/dL (<200); Estimated Glomerular Filt Rate > 60; HDL Cholesterol 40 mg/dL (>40); Potassium 4.5 mmol/L (3.3-5.1); Sodium 140 mmol/L (135-145); Total Protein 7.1 g/dL (6.5-8.0); Triglycerides 57 mg/dL (<150)
[2025-05-15 08:06] LABS: Free T4 (Free Thyroxine) 1.21 ng/dL (0.71-1.85); Thyroid Stimulating Hormone 2.00 uIU/mL (0.32-4.0)
== END 2025-05-15 06:43 | disposition home or self-care (01) ==
LOC: HO.LAB 06:42
PROVIDERS: PCP Internal Medicine; Visit Provider Internal Medicine
DX: I10 Essential (primary) hypertension (principal); E11.9 Type 2 diabetes mellitus without complications; R53.83 Other fatigue; E78.00 Pure hypercholesterolemia, unspecified; E55.9 Vitamin D deficiency, unspecified
CPT/HCPCS: 36415; 80053; 80061; 82306; 84439; 84443